=== PATIENT | female | born 1945 | race Caucasian/White ===

== ENCOUNTER → 2016-11-13 | Outpatient (CLI) | payer OTHER ==
[~2016-11-13] MED LIST: AMX875 PO; ASCO500T16 PO; CALCTAB5 PO; CELE1CAP30 PO; CETI10TA84 PO; CHOL100010 PO; DIAZ-165 PO; DIPH25CA65 PO; GARL705C PO; HYDR25TA4 PO; IBUP-1277 PO; LXP/10 PO; OMEP40CA PO; OXYC-57 PO; PRLSR20 PO; RALO60TA30 PO; VERA360C2 PO; VITA1CRE PO
--- NOTE | 2016-11-13 16:40 | MAMMOGRAPHY REPORT ---
BILATERAL DIGITAL SCREENING MAMMOGRAM WITH CAD: 11/13/2016 CLINICAL HISTORY: Routine screening. Patient has no complaints. TECHNIQUE: Bilateral CC and MLO views were obtained. Current study was also evaluated with a Comput er Aided Detection (CAD) system. COMPARISON: Comparison is made to exams dated: 05/20/2014 mammogram, 12/01/2012 mammogram, 03/19/2011 m ammogram, 01/31/2010 mammogram - [facility], 06/10/2008, and 05/13/2006 mammogram - [facility]. BREAST COMPOSITION: There are scattered areas of fibroglandular density in both breasts. FINDINGS: There are a few scattered benign coarse calcifications in the breasts. No suspicious mass , architectural distortion or cluster of suspicious microcalcifications is seen. IMPRESSION: ACR BI-RADS CATEGORY 2: BENIGN There is no mammographic evidence of malignancy. A 1 year screening mammogram is recommended. The p atient will receive written notification of the results. Approximately 10% of breast cancers are not detected with mammography. A negative mammographic repor t should not delay biopsy if a clinically suggestive mass is present. Rosemary Hutchinson M.D. ay/:11/13/2016 15:48:41 [employer] Supervisor: Maggie NORRIS(John)(Maria A), [facility] letter sent: Normal 1/2 BI-RADS Code: ACR BI-RADS Category 2: Benign
== END | disposition home or self-care (01) ==
LOC: C.MAMM 11:14
PROVIDERS: ATTEND Internal Medicine Geriatric Medicine
DX: Z12.31 Encounter for screening mammogram for malignant neoplasm of breast (principal)

== ENCOUNTER 2016-12-14 09:38 | Emergency (ER) | payer OTHER ==
[~2016-12-14] VITALS: Ht 157.5 cm; Wt 74.3 kg
[~2016-12-14 09:38] MED LIST changes: -CELE1CAP30 PO; -DIAZ-165 PO; -OXYC-57 PO; -PRLSR20 PO; -VITA1CRE PO
[2016-12-14 09:42] VITALS: TEMP 36.8; Ht 157.5 cm; Wt 74.3 kg
[2016-12-14] MEDS ORDERED: DIAZEPAM 5MG TAB PO STA (10:08)
--- NOTE | 2016-12-14 10:08 | EMERGENCY ROOM VISIT NOTE ---
History Report prepared by Evanibjami: Axel Paul Under the Supervision of: Carmine MontanoO. First contact with patient: 09:57 Chief Complaint: FALL Stated Complaint: FELL X 1 WK, LEFT SIDE UNDER BREAST DISCOMFORT History of Present Illness The patient is a 71 year old female who presents to the Emergency Room with complaints of persistent pain in the left rib area for one week. The patient was working in her yard when she tripped and landed flat on the ground. She has not noticed any rashes or bruising over the painful area. Her pain feels similar to when she broke ribs on the right side in the past, which was diagnosed by X-ray. The pain is worse when she takes a deep breath, coughs, sneezes, or otherwise moves the ribs. She has been taking leftover Percocet for pain. She also has some chronic lower back pain that she states is unrelated to the rib pain. She did not hit her head or lose consciousness during the fall. She denies any recent illness or cough, injury to the extremities, abdominal pain, changes in her bowel or urinary habits, numbness, or weakness. The patient is not on any blood thinners. She has history of asthma / allergies and has an inhaler. She has had pneumonia and bronchitis in the past. Patient has not noticed any other new or evolving symptoms over the course of the week. States pain is only localized to her left ribs. Source of History: patient Onset: one week ago Position: other (left rib area) Timing: other (persistent) Modifying Factors (Worsening): breathing, movement Modifying Factors (Relieving): narcotics (Percocet) Associated Symptoms: + back pain, No LOC, No abdominal pain, No cough, No diarrhea, No headache, No numbness, No rash, No urinary symptoms, No weakness Review of Systems See HPI for pertinent positives & negatives. A total of 10 systems reviewed and were otherwise negative. Past Medical & Surgical Medical Problems: (1) Hammer toes, bilateral Surgical Problems: (1) Hx of cholecystectomy Family History Omitted secondary to age Social History Smoking Status: Never Smoker Alcohol Use: none Drug Use: none Current/Historical Medications Scheduled Ascorbic Acid (Ascorbic Acid), 500 MG PO DAILY Celecoxib (Celecoxib), 1 CAP PO BID Cetirizine (Zyrtec), 10 MG PO DAILY Cholecalciferol (Vitamin D), 1 TAB PO DAILY Escitalopram Oxalate (Lexapro), 10 MG PO DAILY Hydrochlorothiazide (Hctz), 25 MG PO DAILY Omeprazole (Prilosec), 40 MG PO DAILY Raloxifene Hcl (Evista), 60 MG PO DAILY Verapamil Hcl (Verapamil Hcl Sr), 360 MG PO DAILY Vitamin E (Topical) (Vitamin E), 2 TAB PO DAILY Scheduled PRN Diazepam (Valium), 2.5 MG PO Q8 PRN for Muscle Spasms Diphenhydramine Hcl (Benadryl Allergy), 25 CAP PO Q4 PRN for ALLERGIC REACTION Ibuprofen (Advil), 200-400 MG PO Q4H PRN for Pain or Fever Oxycodone/Acetaminophen 5MG/325MG (Percocet 5MG/325MG), Unknown Dose PO Q4H PRN for Pain Oxycodone/Acetaminophen 5MG/325MG (Percocet 5MG/325MG), 1 TAB PO Q8 PRN for Pain Allergies Coded Allergies: Amoxicillin (Unverified Allergy, Mild, Hives, 12/14/16) Penicillins (Unverified Allergy, Mild, Hives, 12/14/16) Physical Exam Vital Signs Date Time Temp Pulse Resp B/P Pulse Ox O2 Delivery O2 Flow Rate FiO2 12/14/16 11:45 54 16 146/71 95 12/14/16 09:42 36.8 60 18 147/70 96 Room Air Physical Exam GENERAL: alert, well appearing, well nourished, no distress, non-toxic EYE EXAM: normal conjunctiva, PERRL and EOM's grossly intact OROPHARYNX: no exudate, no erythema, lips, buccal mucosa, and tongue normal and mucous membranes are moist NECK: supple, no nuchal rigidity, no adenopathy, non-tender LUNGS: Clear to auscultation. Normal chest wall mechanics HEART: no murmurs, S1 normal and S2 normal CHEST: Left anterolateral pain with palpation, no crepitus, no stepoff, no ecchymosis or rash. ABDOMEN: abdomen soft, non-tender, normo-active bowel sounds, no masses, no rebound or guarding. BACK: Back is symmetrical on inspection and there is no deformity, no midline tenderness, no CVA tenderness. SKIN: no rashes and no bruising UPPER EXTREMITIES: upper extremities are grossly normal. LOWER EXTREMITIES: No pitting edema. NEURO EXAM: Normal sensorium, cranial nerves II-XII grossly intact, normal speech, no gross weakness of arms, no gross weakness of legs. Gross sensation intact. Medical Decision & Procedures ER Provider Diagnostic Interpretation: Xray results per the radiologist and my interpretation. LEFT RIBS UNILATERAL WITH PA CHEST CLINICAL HISTORY: Left rib pain following fall. COMPARISON STUDY: Chest radiograph September 19, 2015. FINDINGS: There is no pneumothorax or pleural effusion. Mild cardiomegaly is noted. There is no evidence of pulmonary edema. There is a possible acute nondisplaced anterior left 10th rib fracture. IMPRESSION: No pneumothorax. Possible acute nondisplaced anterior left 10th rib fracture. Electronically signed by: Shalom Bruce M.D. 12/14/2016 11:10 AM Dictated Date/Time: 12/14/2016 11:05 AM Medications Administered Medications (Trade) Dose Ordered Sig/Elda Route Start Time Stop Time Status Last Admin Dose Admin Diazepam (Valium Tab) 2.5 mg NOW STAT PO 12/14/16 10:08 12/14/16 10:11 DC 12/14/16 10:37 2.5 MG ECG Indication: chest pain Rate (beats per minute): 58 Rhythm: sinus bradycardia Findings: PAC (occasional), no acute ischemic change, other (normal axis normal intervals) ED Course 0958: The patient was evaluated in room B6. A complete history and physical exam was performed. 1008: Valium 2.5 mg PO. 1125: Reassessed the patient. She looks and feel good. Updated the patient and her family at bedside. Medical Decision Differential diagnosis includes rib fracture, pneumothorax, pulmonary contusion , muscle strain, shingles. Patient well-appearing 1 week out from original injury. Patient with localized pain and no other symptoms or findings on exam. Chest x-ray shows likely rib fracture. Pain well controlled, vital signs stable. Patient not anticoagulated. Did not feel patient required additional imaging at this time given stability one week post fall and chest x-ray confirming suspected diagnosis. Discussed all medications with patient and family at bedside, they verbalized understanding were agreeable with plan. Discussed symptoms to watch and return for, and close follow-up with family doctor as a precaution. Impression Primary Impression: Fall Additional Impression: Left rib fracture Scribe Attestation The scribe's documentation has been prepared under my direction and personally reviewed by me in its entirety. I confirm that the note above accurately reflects all work, treatment, procedures, and medical decision making performed by me. Departure Information Dispostion Home / Self-Care Prescriptions Diazepam (Valium) 5 Mg Tab 2.5 MG PO Q8 Y for Muscle Spasms, #10 TAB Prov: Eve Reyes, DO 12/14/16 Oxycodone/Acetaminophen 5MG/325MG (PERCOCET 5MG/325MG) Tab 1 TAB PO Q8 Y for Pain, #15 TAB Prov: Eve Reyes, DO 12/14/16 Referrals Esau Ryan M.D. (PCP) Forms HOME CARE DOCUMENTATION FORM, IMPORTANT VISIT INFORMATION Patient Instructions My [facility] Additional Instructions Please continue your regular medications. You may use the pain medication and muscle relaxer as prescribed. Please do not use them and drive. You may use tylenol during the day, but do not exceed a total of 4 grams of tylenol total between the regular tylenol and percocet which has tylenol in it. Please eat and drink normally, and monitor for constipation which is a frequent side effect of the percocet. If you have any worsening pain, develop fevers, a cough , abdominal pain, back pain, nausea/vomiting, or you have any other new or concerning symptoms, please return to the emergency room. Problem Qualifiers Primary Impression: Fall Encounter type: initial encounter Qualified Codes: W19.XXXA - Unspecified fall, initial encounter Additional Impression: Left rib fracture Encounter type: initial encounter Rib fracture type: single rib Fracture type: closed Qualified Codes: S22.32XA - Fracture of one rib, left side, initial encounter for closed fracture
[2016-12-14] MEDS ORDERED: PRLSR20 PO (10:22)
[2016-12-14] MEDS ORDERED: VITA1CRE PO (10:22)
[2016-12-14] MEDS ORDERED: CELE1CAP30 PO (10:22)
[2016-12-14] MEDS ORDERED: CHOL100010 PO (10:22)
[2016-12-14] MEDS ORDERED: OXYC-57 PO ×2 (10:23→11:50)
--- NOTE | 2016-12-14 11:11 | DIAGNOSTIC IMAGING REPORT ---
LEFT RIBS UNILATERAL WITH PA CHEST CLINICAL HISTORY: Left rib pain following fall. COMPARISON STUDY: Chest radiograph September 19, 2015. FINDINGS: There is no pneumothorax or pleural effusion. Mild cardiomegaly is noted. There is no evidence of pulmonary edema. There is a possible acute nondisplaced anterior left 10th rib fracture. IMPRESSION: No pneumothorax. Possible acute nondisplaced anterior left 10th rib fracture. Electronically signed by: Shalom Bruce M.D. 12/14/2016 11:10 AM Dictated Date/Time: 12/14/2016 11:05 AM
[2016-12-14 11:45] VITALS: BP 146/71; PULSE 54; O2SAT 95
[2016-12-14] MEDS ORDERED: DIAZ-165 PO (11:50)
== END 2016-12-14 12:19 | disposition home or self-care (01) ==
LOC: C.EDB 09:39
DX: S22.32XA Fracture of one rib, left side, initial encounter for closed fracture (principal); W01.0XXA Fall on same level from slipping, tripping and stumbling without subsequent striking against object, initial encounter; G89.29 Other chronic pain; J45.909 Unspecified asthma, uncomplicated; Z90.49 Acquired absence of other specified parts of digestive tract; Z79.899 Other long term (current) drug therapy; Z88.0 Allergy status to penicillin; Z88.1 Allergy status to other antibiotic agents

== ENCOUNTER → 2017-05-24 | Outpatient (CLI) | payer OTHER ==
[~2017-05-24] MED LIST changes: -AMX875 PO; -CALCTAB5 PO; +CELE1CAP30 PO; +DIAZ-165 PO; -GARL705C PO; -OMEP40CA PO; +OXYC-57 PO; +PRLSR20 PO; +RALO60TA12 PO; -RALO60TA30 PO; +VITA1CRE PO
[2017-05-24 12:33] LABS: BASO % 0.7 %; BASO ABS # 0.04 K/uL (0-0.2); COMPLETE YES; EOS % 2.2 %; IG% 0.2 %; LYMPH % 25.9 %; LYMPH ABS # 1.51 K/uL (1.2-3.4); MEAN CELL VOLUME 91.3 fL (80-100); MEAN CORPUSCULAR HEMOGLOBIN 31.1 pg (25-34); MONO % 6.4 %; NEUT % 64.6 %; PLATELET COUNT 263 K/uL (130-400); RED BLOOD COUNT 4.38 M/uL (4.2-5.4); WHITE BLOOD COUNT 5.82 K/uL (4.8-10.8)
[2017-05-24 13:01] LABS: ALT/SGPT 20 U/L (12-78); AST/SGOT 19 U/L (15-37); BLOOD UREA NITROGEN 16 mg/dl (7-18); BUN/CREATININE RATIO 21.3 (10-20); CARBON DIOXIDE 27 mmol/L (21-32); CHLORIDE 107 mmol/L (98-107); CREATININE 0.77 mg/dl (0.60-1.20); GLUCOSE 91 mg/dl (70-99); POTASSIUM 3.4 mmol/L (3.5-5.1); SODIUM 142 mmol/L (136-145)
[2017-05-24 13:03] LABS: ALKALINE PHOSPHATASE 58 U/L (45-117); CHOLESTEROL 180 mg/dl (0-200); CHOLESTEROL/HDL RATIO 3.7; HDL CHOLESTEROL 49 mg/dl; LDL CHOLESTEROL CALCULATED 96 mg/dl; TRIGLYCERIDES 176 mg/dl (0-150); VERY LOW DENSITY LIPOPROT CALC 35 mg/dl
== END | disposition home or self-care (01) ==
LOC: C.LABBFT 10:12
PROVIDERS: ATTEND Internal Medicine
DX: Z00.00 Encounter for general adult medical examination without abnormal findings (principal); M81.0 Age-related osteoporosis without current pathological fracture; E78.5 Hyperlipidemia, unspecified; I10 Essential (primary) hypertension; E55.9 Vitamin D deficiency, unspecified; K58.9 Irritable bowel syndrome, unspecified

== ENCOUNTER → 2017-11-20 | Outpatient (CLI) | payer OTHER ==
[~2017-11-20] MED LIST changes: -DIAZ-165 PO; -RALO60TA12 PO; +RALO60TA30 PO
[2017-11-20 13:05] LABS: ALBUMIN 3.2 gm/dl (3.4-5.0); ALT/SGPT 23 U/L (12-78); AST/SGOT 22 U/L (15-37); BLOOD UREA NITROGEN 15 mg/dl (7-18); CALCIUM 9.4 mg/dl (8.5-10.1); CARBON DIOXIDE 28 mmol/L (21-32); CREATININE 0.85 mg/dl (0.60-1.20); GLUCOSE 86 mg/dl (70-99); POTASSIUM 3.6 mmol/L (3.5-5.1); SODIUM 139 mmol/L (136-145)
[2017-11-20 13:08] LABS: ALKALINE PHOSPHATASE 58 U/L (45-117); TOTAL PROTEIN 7.1 gm/dl (6.4-8.2)
== END | disposition home or self-care (01) ==
LOC: C.LABBFT 09:51
PROVIDERS: ATTEND Internal Medicine
DX: Z00.00 Encounter for general adult medical examination without abnormal findings (principal); I10 Essential (primary) hypertension; E78.5 Hyperlipidemia, unspecified; E55.9 Vitamin D deficiency, unspecified

== ENCOUNTER 2022-08-25 18:01 | Inpatient (IN) ==
[2022-08-25 19:52] LABS: Basophils # (auto) 0.03 K/uL (0-0.2); Basophils % (auto) 0.5 %; Eosinophils # (auto) 0.04 K/uL (0-0.50); Eosinophils % (auto) 0.6 %; Hematocrit (blood only) 39.4 % (34.1-44.9); Hemoglobin 13.5 g/dl (12.0-16.0); Immature Granulocytes # (auto) 0.02 K/uL (0.00-0.02); Immature Granulocytes % (auto) 0.3 %; Lymphocytes # (auto) 1.16 K/uL (1.2-3.4); Lymphocytes % (auto) 17.6 %; Mean Corpuscular Hgb Conc 34.3 g/dL (32.0-36.0); Mean Corpuscular Volume 90.6 fL (80.0-100.0); Mean Platelet Volume 10.2 fL (9.4-12.3); Monocytes # (auto) 0.61 K/uL (0.24-0.82); Monocytes % (auto) 9.3 %; Neutrophils # (auto) 4.72 K/uL (1.4-6.5); Neutrophils % (auto) 71.7 %; Platelet Count 253 K/uL (130-400); RDW Coefficient of Variation 13.4 % (11.5-14.5); RDW Standard Deviation 45.6 fL (36.4-46.3); Red Blood Count 4.35 M/uL (3.93-5.22); White Blood Count 6.58 K/ul (4.8-10.8)
[2022-08-25 20:08] LABS: Albumin Level 3.6 gm/dl (3.4-5.0); BUN Creatinine Ratio 17.3 (10-20); Bilirubin Direct 0.1 mg/dl (0-0.2); Bilirubin,Total 0.9 mg/dl (0.2-1.0); Calcium 9.4 mg/dl (8.5-10.1); Creatinine Clr Calc Pharmacy 51.7 ml/min; Est GFR (African American) 80.1 ml/min; Est GFR (Non-African American) 69.1 ml/min; Potassium 2.7 mmol/L (3.5-5.1); Total Protein 6.7 gm/dl (6.0-8.3)
--- NOTE | 2022-08-25 20:41 | Emergency Department Note ---
History of Present Illness General Chief complaint: Back Injury/Pain Time Seen by Provider: 08/25/22 19:06 History of Present Illness Provider complaint: Left-sided flank pain Onset (ago): day(s) 1 Maximum Pain Intensity: 10 77-year-old female presents emergency department for left-sided flank pain. Patient is here with her family. They report that the patient has been having increasing memory issues however the patient has been reporting left-sided flank pain. No recent falls or traumas. No hematuria or dysuria. No fevers or vomi ting. No reported urinary or fecal incontinence. Home Medications Medication Instructions Recorded Confirmed Type cholecalciferol (vitamin D3) 25 2,000 unit PO QAM 11/03/20 08/25/22 History mcg (1,000 unit) chewable tablet (Vitamin D3) levothyroxine 25 mcg tablet 25 mcg PO DAILYBB 08/25/22 08/25/22 History raloxifene 60 mg tablet 60 mg PO QPM 08/25/22 08/25/22 History verapamil 180 mg 24 hr 360 mg PO DAILY 08/25/22 08/25/22 History capsule,extended release Allergies Allergy/AdvReac Type Severity Reaction Status Date / Time amoxicillin Allergy Mild Hives Verified 08/25/22 20:54 Penicillins Allergy Mild Hives Verified 08/25/22 20:54 KATIANA Inhibitors Allergy Verified 08/25/22 20:54 mometasone furoate Allergy Verified 08/25/22 20:54 [From Nasonex] paroxetine [From Paxil] Allergy Verified 08/25/22 20:54 Past Med/Surg History Medical History Bilateral neural hearing loss Chronic rhinitis Depression with anxiety Dyslipidemia Family history of breast cancer in first degree relative three sisters with breast cancer GERD (gastroesophageal reflux disease) Hypertension Hypothyroidism Mild cognitive impairment Osteoporosis Sleep apnea Vitamin D deficiency Surgical History Hx of cholecystectomy Hx of foot surgery S/P colonoscopy S/P tubal ligation Family History Father Alzheimer disease Sister Breast cancer Dementia Other Cancer Hypertension No family history of adverse response to anesthesia No family history of bleeding disorder Denies family history of Rheumatoid arthritis Sudden SIDS (sudden infant syndrome) Ovarian cancer Prostate cancer Diabetes Deep vein thrombosis Osteoporosis Coronary heart disease Dyslipidemia Cerebral aneurysm Bipolar disorder Clotting disorder Crohn's disease Depression Heart disease Kidney disease Myocardial infarction Osteoarthritis Schizophrenia Congenital kidney disease Gestational diabetes Lung cancer COPD (chronic obstructive pulmonary disease) Colorectal cancer Pulmonary embolism Lung disease Ulcerative colitis Colonic polyp Stroke Asthma Cystic kidney disease Social History Smoking Status: Never smoker Second Hand Exposure: No; Hx Alcohol Use: No Hx Substance Use: No Preferred Language: Nepali Communication Ability: Effective Visual Impairment: No Limitations Hearing Ability: Hard of Hearing Beliefs That Will Affect Care: None marital status: Current Living Situation: Spouse current occupational status: retired How many Children do You have: 3 Feels Safe at Home: Yes Childhood Exposure to Second-Hand Smoke: No caffeine: No during the past year weight has: remained stable Dental Care, Regularly: Yes Physical Activity Frequency: Daily Seatbelt Use: always Sunscreen Use: No Physical Exam Vital Signs Vital Signs - 24 hr 08/25/22 18:04 08/25/22 18:04 08/25/22 19:41 Temperature 37.0 C Temperature Source Oral Pulse Rate 64 59 L Pulse Rate [Apical] 67 Pulse Rate from SpO2 Sensor Pulse Rhythm Regular Regular Pulse Rhythm [Apical] Regular Pulse Strength Normal Pulse Strength [Apical] Normal Respiratory Rate 19 18 20 Respiratory Effort / Characteristics Non-Labored Spontaneous Non-Labored Spontaneous Respiratory Depth Normal Normal Respiratory Pattern Regular Regular Blood Pressure 165/78 H Blood Pressure [Right Arm] 165/78 H Blood Pressure Mean 107 Blood Pressure Mean [Right Arm] 107 Pulse Oximetry 95 95 95 Oxygen Delivery Method Room Air Room Air Room Air Sepsis Recent Fever Within 48 Hours No Sepsis New/Unexplained Change in Mental Status No Sepsis Action Taken by Nursing No Action Required 08/25/22 18:24 08/25/22 18:30 08/25/22 18:40 Temperature Temperature Source Pulse Rate 68 66 65 Pulse Rate [Apical] Pulse Rate from SpO2 Sensor 65 66 66 Pulse Rhythm Pulse Rhythm [Apical] Pulse Strength Pulse Strength [Apical] Respiratory Rate 24 24 24 Respiratory Effort / Characteristics Respiratory Depth Respiratory Pattern Blood Pressure Blood Pressure [Right Arm] Blood Pressure Mean Blood Pressure Mean [Right Arm] Pulse Oximetry 95 95 95 Oxygen Delivery Method Sepsis Recent Fever Within 48 Hours Sepsis New/Unexplained Change in Mental Status Sepsis Action Taken by Nursing 08/25/22 18:50 08/25/22 19:00 08/25/22 19:10 Temperature Temperature Source Pulse Rate 71 70 73 Pulse Rate [Apical] Pulse Rate from SpO2 Sensor 70 73 72 Pulse Rhythm Pulse Rhythm [Apical] Pulse Strength Pulse Strength [Apical] Respiratory Rate 20 24 20 Respiratory Effort / Characteristics Respiratory Depth Respiratory Pattern Blood Pressure Blood Pressure [Right Arm] Blood Pressure Mean Blood Pressure Mean [Right Arm] Pulse Oximetry 96 91 96 Oxygen Delivery Method Sepsis Recent Fever Within 48 Hours Sepsis New/Unexplained Change in Mental Status Sepsis Action Taken by Nursing 08/25/22 19:20 08/25/22 19:30 08/25/22 19:40 Temperature Temperature Source Pulse Rate 67 64 61 Pulse Rate [Apical] Pulse Rate from SpO2 Sensor 66 68 61 Pulse Rhythm Pulse Rhythm [Apical] Pulse Strength Pulse Strength [Apical] Respiratory Rate 21 22 24 Respiratory Effort / Characteristics Respiratory Depth Respiratory Pattern Blood Pressure Blood Pressure [Right Arm] Blood Pressure Mean Blood Pressure Mean [Right Arm] Pulse Oximetry 96 95 95 Oxygen Delivery Method Sepsis Recent Fever Within 48 Hours Sepsis New/Unexplained Change in Mental Status Sepsis Action Taken by Nursing 08/25/22 20:10 08/25/22 20:10 08/25/22 20:20 Temperature Temperature Source Pulse Rate Pulse Rate [Apical] Pulse Rate from SpO2 Sensor 70 64 Pulse Rhythm Pulse Rhythm [Apical] Pulse Strength Pulse Strength [Apical] Respiratory Rate 21 Respiratory Effort / Characteristics Respiratory Depth Respiratory Pattern Blood Pressure 178/74 H Blood Pressure [Right Arm] Blood Pressure Mean 108 Blood Pressure Mean [Right Arm] Pulse Oximetry 94 94 Oxygen Delivery Method Sepsis Recent Fever Within 48 Hours Sepsis New/Unexplained Change in Mental Status Sepsis Action Taken by Nursing 08/25/22 20:30 08/25/22 20:40 08/25/22 20:50 Temperature Temperature Source Pulse Rate 88 Pulse Rate [Apical] Pulse Rate from SpO2 Sensor 62 69 82 Pulse Rhythm Pulse Rhythm [Apical] Pulse Strength Pulse Strength [Apical] Respiratory Rate 19 19 Respiratory Effort / Characteristics Respiratory Depth Respiratory Pattern Blood Pressure Blood Pressure [Right Arm] Blood Pressure Mean Blood Pressure Mean [Right Arm] Pulse Oximetry 94 95 97 Oxygen Delivery Method Sepsis Recent Fever Within 48 Hours Sepsis New/Unexplained Change in Mental Status Sepsis Action Taken by Nursing 08/25/22 20:51 08/25/22 20:51 08/25/22 21:00 Temperature Temperature Source Pulse Rate 69 Pulse Rate [Apical] Pulse Rate from SpO2 Sensor 70 Pulse Rhythm Pulse Rhythm [Apical] Pulse Strength Pulse Strength [Apical] Respiratory Rate 22 Respiratory Effort / Characteristics Respiratory Depth Respiratory Pattern Blood Pressure 184/74 H 136/104 H Blood Pressure [Right Arm] Blood Pressure Mean 110 114 Blood Pressure Mean [Right Arm] Pulse Oximetry 96 Oxygen Delivery Method Sepsis Recent Fever Within 48 Hours Sepsis New/Unexplained Change in Mental Status Sepsis Action Taken by Nursing 08/25/22 21:00 08/25/22 21:10 08/25/22 21:20 Temperature Temperature Source Pulse Rate 73 61 60 Pulse Rate [Apical] Pulse Rate from SpO2 Sensor 77 57 L 62 Pulse Rhythm Pulse Rhythm [Apical] Pulse Strength Pulse Strength [Apical] Respiratory Rate 22 20 20 Respiratory Effort / Characteristics Respiratory Depth Respiratory Pattern Blood Pressure Blood Pressure [Right Arm] Blood Pressure Mean Blood Pressure Mean [Right Arm] Pulse Oximetry 93 92 92 Oxygen Delivery Method Sepsis Recent Fever Within 48 Hours Sepsis New/Unexplained Change in Mental Status Sepsis Action Taken by Nursing 08/25/22 21:30 08/25/22 21:40 08/25/22 21:50 Temperature Temperature Source Pulse Rate 61 60 59 L Pulse Rate [Apical] Pulse Rate from SpO2 Sensor 61 61 61 Pulse Rhythm Pulse Rhythm [Apical] Pulse Strength Pulse Strength [Apical] Respiratory Rate 23 19 20 Respiratory Effort / Characteristics Respiratory Depth Respiratory Pattern Blood Pressure Blood Pressure [Right Arm] Blood Pressure Mean Blood Pressure Mean [Right Arm] Pulse Oximetry 93 91 92 Oxygen Delivery Method Sepsis Recent Fever Within 48 Hours Sepsis New/Unexplained Change in Mental Status Sepsis Action Taken by Nursing 08/25/22 22:00 08/25/22 22:00 08/25/22 22:10 Temperature Temperature Source Pulse Rate 65 60 Pulse Rate [Apical] Pulse Rate from SpO2 Sensor 65 61 Pulse Rhythm Pulse Rhythm [Apical] Pulse Strength Pulse Strength [Apical] Respiratory Rate 23 24 Respiratory Effort / Characteristics Respiratory Depth Respiratory Pattern Blood Pressure 139/73 Blood Pressure [Right Arm] Blood Pressure Mean 95 Blood Pressure Mean [Right Arm] Pulse Oximetry 93 93 Oxygen Delivery Method Sepsis Recent Fever Within 48 Hours Sepsis New/Unexplained Change in Mental Status Sepsis Action Taken by Nursing 08/25/22 22:20 08/25/22 22:30 08/25/22 22:40 Temperature Temperature Source Pulse Rate 62 67 67 Pulse Rate [Apical] Pulse Rate from SpO2 Sensor 61 65 Pulse Rhythm Pulse Rhythm [Apical] Pulse Strength Pulse Strength [Apical] Respiratory Rate 20 23 Respiratory Effort / Characteristics Respiratory Depth Respiratory Pattern Blood Pressure Blood Pressure [Right Arm] Blood Pressure Mean Blood Pressure Mean [Right Arm] Pulse Oximetry 94 95 Oxygen Delivery Method Sepsis Recent Fever Within 48 Hours Sepsis New/Unexplained Change in Mental Status Sepsis Action Taken by Nursing 08/25/22 22:50 08/25/22 22:58 08/25/22 22:58 Temperature Temperature Source Pulse Rate 64 61 Pulse Rate [Apical] Pulse Rate from SpO2 Sensor 64 Pulse Rhythm Pulse Rhythm [Apical] Pulse Strength Pulse Strength [Apical] Respiratory Rate 21 Respiratory Effort / Characteristics Respiratory Depth Respiratory Pattern Blood Pressure 134/90 Blood Pressure [Right Arm] Blood Pressure Mean 104 Blood Pressure Mean [Right Arm] Pulse Oximetry 94 Oxygen Delivery Method Sepsis Recent Fever Within 48 Hours Sepsis New/Unexplained Change in Mental Status Sepsis Action Taken by Nursing 08/25/22 23:00 08/25/22 23:00 08/25/22 23:10 Temperature Temperature Source Pulse Rate 66 75 Pulse Rate [Apical] Pulse Rate from SpO2 Sensor Pulse Rhythm Pulse Rhythm [Apical] Pulse Strength Pulse Strength [Apical] Respiratory Rate 22 24 Respiratory Effort / Characteristics Respiratory Depth Respiratory Pattern Blood Pressure 168/64 H Blood Pressure [Right Arm] Blood Pressure Mean 98 Blood Pressure Mean [Right Arm] Pulse Oximetry Oxygen Delivery Method Sepsis Recent Fever Within 48 Hours Sepsis New/Unexplained Change in Mental Status Sepsis Action Taken by Nursing 08/25/22 23:20 08/25/22 23:30 08/25/22 23:40 Temperature Temperature Source Pulse Rate 64 62 60 Pulse Rate [Apical] Pulse Rate from SpO2 Sensor Pulse Rhythm Pulse Rhythm [Apical] Pulse Strength Pulse Strength [Apical] Respiratory Rate 20 24 24 Respiratory Effort / Characteristics Respiratory Depth Respiratory Pattern Blood Pressure Blood Pressure [Right Arm] Blood Pressure Mean Blood Pressure Mean [Right Arm] Pulse Oximetry Oxygen Delivery Method Sepsis Recent Fever Within 48 Hours Sepsis New/Unexplained Change in Mental Status Sepsis Action Taken by Nursing 08/25/22 23:50 08/26/22 00:00 Temperature Temperature Source Pulse Rate 59 L 59 L Pulse Rate [Apical] Pulse Rate from SpO2 Sensor Pulse Rhythm Pulse Rhythm [Apical] Pulse Strength Pulse Strength [Apical] Respiratory Rate 20 22 Respiratory Effort / Characteristics Respiratory Depth Respiratory Pattern Blood Pressure Blood Pressure [Right Arm] Blood Pressure Mean Blood Pressure Mean [Right Arm] Pulse Oximetry Oxygen Delivery Method Sepsis Recent Fever Within 48 Hours Sepsis New/Unexplained Change in Mental Status Sepsis Action Taken by Nursing Physical Exam HENT: Exam performed. -Head: Normocephalic and atraumatic. NECK: Normal range of motion. Neck supple. No JVD present. CV: Normal rate, regular rhythm, normal heart sounds and intact distal pulses. There is no peripheral edema. Palpable radial pulses bue. PULM/CHEST: Effort normal and breath sounds normal. No respiratory distress. No stridor. She has no wheezes. She has no rales. ABD: The abdomen is soft. No tenderness to palpation of the abdomen. MUSC/SKEL: No C, T, or L-spine tenderness. No CVA tenderness. NEURO: Motor and sensation grossly intact. Course Course 1905: The patient was evaluated in room C7. A complete history and physical exam was performed Cardiac monitoring: An order was placed for continuous cardiac monitoring. The monitor shows a rate of 60 with sinus rhythm 2200: Vital signs stable. Labs show potassium of 2.[address] of the and pelvis shows early diverticulitis. Discussed the results with patient and family. They state they feel the patient is too weak to be taken care of at home. Patient be admitted to the [facility] team. Patient treated with Cipro and Flagyl IV. Potassium Cater and KCl and 1 L normal saline given to the patient. Patient will be admitted to Dr. Zayas team. Administered Medications Potassium Chloride/Sodium Chloride (Normal Saline W/20 Meq Kcl) 20 meq in 1,000 mls @ 100 mls/hr IV .Q10H [facility]; Protocol Stop: 09/24/22 22:14 Last Admin: 08/25/22 23:40 Dose: 100 mls/hr Documented By: TORI Discontinued Medications Metronidazole (Flagyl) 500 mg in 100 mls @ 100 mls/hr IV NOW STA Stop: 08/25/22 22:58 Last Admin: 08/26/22 00:22 Dose: 100 mls/hr Documented By: TORI Ciprofloxacin (Cipro / D5w) 400 mg in 200 mls @ 100 mls/hr IV NOW STA; Protocol Stop: 08/26/22 00:04 Last Infusion: 08/26/22 00:04 Dose: 0 mls/hr Documented By: Admin: 08/25/22 22:19 Dose: 100 mls/hr Documented By: TORI Potassium Chloride (Potassium Chloride 10 Meq Tabcr) 40 meq PO NOW STA Stop: 08/25/22 22:05 Last Admin: 08/25/22 22:20 Dose: 40 meq Documented By: [facility] Medical Decision Making Laboratory Data Attestation: I reviewed the patient's lab results. 08/25/22 18:11 08/25/22 18:11 Lab Results 08/25/22 08/25/22 08/25/22 Range/Units 18:11 18:11 18:11 WBC 6.58 (4.8-10.8) K/ul RBC 4.35 (3.93-5.22) M/uL Hgb 13.5 (12.0-16.0) g/dl Hct 39.4 (34.1-44.9) % MCV 90.6 (80.0-100.0) fL MCH 31.0 (25.0-34.0) pg MCHC 34.3 (32.0-36.0) g/dL RDW Std Deviation 45.6 (36.4-46.3) fL RDW Coeff of Yoselin 13.4 (11.5-14.5) % Plt Count 253 (130-400) K/uL MPV 10.2 (9.4-12.3) fL Immature Gran % (Auto) 0.3 % Neut % (Auto) 71.7 % Lymph % (Auto) 17.6 % [place] % (Auto) 9.3 % Eos % (Auto) 0.6 % Baso % (Auto) 0.5 % Neut # (Auto) 4.72 (1.4-6.5) K/uL Lymph # (Auto) 1.16 L (1.2-3.4) K/uL [place] # (Auto) 0.61 (0.24-0.82) K/uL Eos # (Auto) 0.04 (0-0.50) K/uL Baso # (Auto) 0.03 (0-0.2) K/uL Immature Gran # (Auto) 0.02 (0.00-0.02) K/uL Sodium 140 (136-145) mmol/L Potassium 2.7 L (3.5-5.1) mmol/L Chloride 106 (98-107) mmol/L Carbon Dioxide 27 (21-32) mmol/L Anion Gap 7 (3-11) BUN 14 (6-23) mg/dl Creatinine 0.81 (0.6-1.2) mg/dl Est Cr Clr Drug Dosing 51.7 ml/min Est GFR ( Amer) 80.1 ml/min Est GFR (Non-Af Amer) 69.1 ml/min BUN/Creatinine Ratio 17.3 (10-20) Glucose 100 H (70-99(Fasting)) mg/dl Calcium 9.4 (8.5-10.1) mg/dl Magnesium 2.0 (1.7-2.4) mg/dl Total Bilirubin 0.9 (0.2-1.0) mg/dl Direct Bilirubin 0.1 (0-0.2) mg/dl AST 14 (13-39) U/L ALT 7 (7-52) U/L Alkaline Phosphatase 48 (34-104) U/L Total Protein 6.7 (6.0-8.3) gm/dl Albumin 3.6 (3.4-5.0) gm/dl Lipase 17 (11-82) U/L Urine Color Urine Appearance (Clear) Urine pH (4.5-7.5) Ur Specific [place] (1.000-1.030) Urine Protein (Negative) Urine Glucose (UA) (Negative) Urine Ketones (Negative) Urine Blood (Negative) Urine Nitrite (Negative) Urine Bilirubin (Negative) Urine Urobilinogen (Negative) Ur Leukocyte Esterase (Negative) Urine WBC (Auto) (0-5) /hpf Urine RBC (Auto) (0-4) /hpf U Hyaline Cast (Auto) (0-5) /lpf U Epithel Cells (Auto) (0-5) /lpf Urine Bacteria (Auto) (Negative) SARS-CoV-2, RNA, NAAT (NEGATIVE) 08/25/22 08/25/22 Range/Units 20:48 23:43 WBC (4.8-10.8) K/ul RBC (3.93-5.22) M/uL Hgb (12.0-16.0) g/dl Hct (34.1-44.9) % MCV (80.0-100.0) fL MCH (25.0-34.0) pg MCHC (32.0-36.0) g/dL RDW Std Deviation (36.4-46.3) fL RDW Coeff of Yoselin (11.5-14.5) % Plt Count (130-400) K/uL MPV (9.4-12.3) fL Immature Gran % (Auto) % Neut % (Auto) % Lymph % (Auto) % [place] % (Auto) % Eos % (Auto) % Baso % (Auto) % Neut # (Auto) (1.4-6.5) K/uL Lymph # (Auto) (1.2-3.4) K/uL [place] # (Auto) (0.24-0.82) K/uL Eos # (Auto) (0-0.50) K/uL Baso # (Auto) (0-0.2) K/uL Immature Gran # (Auto) (0.00-0.02) K/uL Sodium (136-145) mmol/L Potassium (3.5-5.1) mmol/L Chloride (98-107) mmol/L Carbon Dioxide (21-32) mmol/L Anion Gap (3-11) BUN (6-23) mg/dl Creatinine (0.6-1.2) mg/dl Est Cr Clr Drug Dosing ml/min Est GFR ( Amer) ml/min Est GFR (Non-Af Amer) ml/min BUN/Creatinine Ratio (10-20) Glucose (70-99(Fasting)) mg/dl Calcium (8.5-10.1) mg/dl Magnesium (1.7-2.4) mg/dl Total Bilirubin (0.2-1.0) mg/dl Direct Bilirubin (0-0.2) mg/dl AST (13-39) U/L ALT (7-52) U/L Alkaline Phosphatase (34-104) U/L Total Protein (6.0-8.3) gm/dl Albumin (3.4-5.0) gm/dl Lipase (11-82) U/L Urine Color [place] Urine Appearance Clear (Clear) Urine pH 5.5 (4.5-7.5) Ur Specific [place] 1.020 (1.000-1.030) Urine Protein Trace H (Negative) Urine Glucose (UA) Negative (Negative) Urine Ketones Trace H (Negative) Urine Blood 3+ H (Negative) Urine Nitrite Negative (Negative) Urine Bilirubin Negative (Negative) Urine Urobilinogen Negative (Negative) Ur Leukocyte Esterase Trace H (Negative) Urine WBC (Auto) 10-30 H (0-5) /hpf Urine RBC (Auto) >30 H (0-4) /hpf U Hyaline Cast (Auto) 1-5 (0-5) /lpf U Epithel Cells (Auto) >30 H (0-5) /lpf Urine Bacteria (Auto) Negative (Negative) SARS-CoV-2, RNA, NAAT NEGATIVE (NEGATIVE) Imaging Data Radiologist's Impression: Abdomen/Pelvis CT 08/25/22 19:39 CT abd pelvis wo con CLINICAL HISTORY: flank pain TECHNIQUE: Helical axial images of the abdomen and pelvis were obtained. Automated dose lowering techniques and/or adjustment according to patient size were utilized for this exam. This exam was performed without intravenous contrast. CT DOSE: 352.10 mGy.cm COMPARISON: None available at the time of this dictation. FINDINGS: Lower chest: Bilateral small pleural effusions are seen. Liver: Unremarkable. No focal lesions are seen. Gallbladder and biliary tree: Patient is status post cholecystectomy. Physiologic prominence of the biliary ducts is noted. Pancreas: Unremarkable, no focal lesions. Spleen: Unremarkable. Adrenals: Unremarkable. Kidneys and ureters: Multiple cysts are seen in the bilateral kidneys. Bladder: Unremarkable. Reproductive organs: Unremarkable. Bowel: Numerous diverticula are seen and there is minimal increased stranding in the mid sigmoid colon. The appendix is normal. There is a small hiatal hernia. Lymph nodes Retroperitoneal: Unremarkable. Pelvic: Subcentimeter lymph nodes are noted. Mesenteric: Unremarkable. Peritoneum: Minimal vascular prominence is seen in the sigmoid colon and there is trace pelvic free fluid. No pneumoperitoneum or drainable fluid collection is seen. Vessels: Atherosclerotic calcifications are seen. Abdominal wall: Unremarkable. Bones: Degenerative changes in the visualized spine. IMPRESSION: Minimal fat stranding about the diverticula in the sigmoid colon may represent very mild diverticulitis without abscess or perforation. ACT 112: Negative or not required by law. Electronically signed by: Gerber Gallego M.D. 08/25/2022 9:[address] 08/25/22 19:39 CT head/brain wo con CLINICAL HISTORY: ams Technique: Contiguous axial CT images of the head were acquired from the base of the skull to the vertex without intravenous contrast administration. Images were viewed in brain, subdural and bone windows. Automated dose lowering techniques and/or adjustment according to patient size were utilized for this exam. Comparison: Comparison is made to CT head 04/09/2019 Findings: Areas of decreased attenuation are present in the periventricular and subcortical white matter bilaterally consistent with small vessel ischemic disease. Generalized cerebral atrophy with commensurate enlargement of the ventricles, sulci, and cisterns is also present. There is no acute intracranial hemorrhage or evidence of acute territorial infarction. No shift of the midline structures, mass effect, or extra-axial abnormalities are shown. Atherosclerotic calcifications are present in the intracranial segments of the internal carotid arteries. Imaged portions of the paranasal sinuses and mastoid air cells are clear. The orbits appear normal. There are no acute fractures of the calvaria or scalp swelling. Impression: No acute intracranial hemorrhage, no evidence of acute territorial infarction or other acute intracranial disease process. ACT 112: Negative or not required by law. Electronically signed by: Gerber Gallego M.D. 08/25/2022 9:36 PM MDM Narrative Vital signs stable. Labs show potassium of 2.[address] of the and pelvis shows early diverticulitis. Discussed the results with patient and family. They state they feel the patient is too weak to be taken care of at home. Patient be admitted to the [facility] hospitalist team. Patient treated with Cipro and Flagyl IV. Potassium Cater and KCl and 1 L normal saline given to the patient. Patient will be admitted to Dr. Zayas team. Impression & Plan Hypokalemia, Acute diverticulitis Discharge Plan Visit Data Chief Complaint: Back Injury/Pain ED Provider: Kamron Freedman Discharge Problem: Hypokalemia, Acute diverticulitis Patient Disposition: Being Evaluated by Hospitalist Forms Stand Alone Forms: My [facility] Prescriptions Prescriptions: No Action cholecalciferol (vitamin D3) [Vitamin D3] 25 mcg (1,000 unit) tablet,chewable 2,000 unit PO QAM levothyroxine 25 mcg tablet 25 mcg PO DAILYBB verapamil 180 mg capsule,ext rel. pellets 24 hr 360 mg PO DAILY Rx Instructions: TWO CAPSULE DOSE DAILY raloxifene 60 mg tablet 60 mg PO QPM Referrals Referrals: Erin Bruce MD [Primary Care Provider] -
--- NOTE | 2022-08-25 21:38 | CT Scan Report ---
CT head/brain wo con CLINICAL HISTORY: ams Technique: Contiguous axial CT images of the head were acquired from the base of the skull to the nilo mya without intravenous contrast administration. Images were [facility] Automated dose lowering techniques and/or adjustment according to patient size were utilized for this exam. Comparison: Comparison is made to CT head 04/09/2019 Findings: Areas of decreased attenuation are present in the periventricular and subcortical white matter bilate rally consistent with small vessel ischemic disease. Generalized cerebral atrophy with commensurate e nlargement of the ventricles, sulci, and cisterns is also present. There is no acute intracranial hem orrhage or evidence of acute territorial infarction. No shift of the midline structures, mass effect, or extra-axial abnormalities are shown. Atherosclerotic calcifications are present in the intracran ial segments of the internal carotid arteries. Imaged portions of the paranasal sinuses and mastoid air cells are clear. The orbits appear normal. There are no acute fractures of the calvaria or scalp swelling. Impression: No acute intracranial hemorrhage, no evidence of acute territorial infarction or other acute intracra nial disease process. ACT 112: Negative or not required by law. Electronically signed by: Gerber Gallego M.D. 08/25/2022 9:36 PM
[2022-08-25 21:41] LABS: Appearance Urine Clear (Clear); Bacteria Urine Automated Negative (Negative); Bilirubin Urine Negative (Negative); Blood Urine 3+ (Negative); Color Urine Orange; Epithelial Cell Urine Auto >30 /lpf (0-5); Glucose Urine UA Negative (Negative); Ketones Urine Trace (Negative); Leukocyte Esterase Urine Trace (Negative); Nitrite Urine Negative (Negative); Protein Urine Trace (Negative); RBC Urine Automated >30 /hpf (0-4); Urobilinogen Urine Negative (Negative); pH Urine 5.5 (4.5-7.5)
--- NOTE | 2022-08-25 21:51 | CT Scan Report ---
CT abd pelvis wo con CLINICAL HISTORY: flank pain TECHNIQUE: Helical axial images of the abdomen and pelvis were obtained. Automated dose lowering tech niques and/or adjustment according to patient size were utilized for this exam. This exam was perfor med without intravenous contrast. CT DOSE: 352.10 mGy.cm COMPARISON: None available at the time of this dictation. FINDINGS: Lower chest: Bilateral small pleural effusions are seen. Liver: Unremarkable. No focal lesions are seen. Gallbladder and biliary tree: Patient is status post cholecystectomy. Physiologic prominence of the b iliary ducts is noted. Pancreas: Unremarkable, no focal lesions. Spleen: Unremarkable. Adrenals: Unremarkable. Kidneys and ureters: Multiple cysts are seen in the bilateral kidneys. Bladder: Unremarkable. Reproductive organs: Unremarkable. Bowel: Numerous diverticula are seen and there is minimal increased stranding in the mid sigmoid colo n. The appendix is normal. There is a small hiatal hernia. Lymph nodes Retroperitoneal: Unremarkable. Pelvic: Subcentimeter lymph nodes are noted. Mesenteric: Unremarkable. Peritoneum: Minimal vascular prominence is seen in the sigmoid colon and there is trace pelvic free f luid. No pneumoperitoneum or drainable fluid collection is seen. Vessels: Atherosclerotic calcifications are seen. Abdominal wall: Unremarkable. Bones: Degenerative changes in the visualized spine. IMPRESSION: Minimal fat stranding about the diverticula in the sigmoid colon may represent very mild diverticulit is without abscess or perforation. ACT 112: Negative or not required by law. Electronically signed by: Gerber Gallego M.D. 08/25/2022 9:50 PM
[2022-08-25] MEDS ORDERED: metroNIDAZOLE 500 MG/100 ML BAG IV STA (21:59)
[2022-08-25] MEDS ORDERED: POTASSIUM CHLORIDE 10 MEQ TABCR PO STA (22:04)
[2022-08-25] MEDS ORDERED: CIPROFLOXACIN / D5W 400 MG/200 ML BAG IV STA (22:05)
--- NOTE | 2022-08-25 22:14 | History & Physical Report ---
Date of Service August 25, 2022 Assessment & Plan (1) Acute diverticulitis: Plan: 77yo female with history presenting with acute uncomplicated diverticulitis. Patient has had left sided abdominal cramping persistent since 08/24/22 afternoon. She is afebrile, hemodynamically stable and non-toxic in appearance. Her pain is well controlled. Labs are largely unremarkable with exception of hypokalemia. Family is concerned about patient's generalized weakness. She lives at home with her and has been having difficulty with ambulation. -Observation to medical -Continue Ciprofloxacin 400mg IV BID -Continue Flagyl 500mg IV q 8 -IVF with LR at 80mL/hr x 1 L -Pain control with Tylenol and Oxy IR as needed -PT/OT evaluation for generalized weakness and ambulatory dysfunction (2) Hypokalemia: Plan: K=2.7. Son reports she had history of hypokalemia and was on supplemental K. Her labs normalized and her K was discontinued approximately 1 month ago. Now with K of 2.7. 40mEq ordered in the ER as well as 20mEq in IVF -Administer additional 20mEq -Repeat labs in AM (3) Hypothyroidism: Plan: Chronic -Continue Synthroid (4) Mild cognitive impairment: Plan: Patient oriented to self and hospital (with prompting). Functional and independent at home -Delirium prevention strategies with frequent orientation (5) Hypertension: Plan: Chronic. Blood pressure adequately controlled -Continue Verapamil 360mg po daily F/E/N - LR at 80mL/hr x 1L, K repletion as above, heart healthy diet as tolerated Ppx - low risk Code - Full per discussion with patient Dispo - Observation to medical POC - Arnulfo (son) [phone] History of Present Illness Chief Complaint: Abdominal cramping, back pain Primary Care Provider: Erin Bruce MD Paola Mina is a 77yo female with history of HTN, HLP, GERD and Hypothyroidism presenting with acute uncomplicated diverticulitis and generalized weakness. Patient began having some abdominal pain 08/24/22 on the left side of her abdomen as well as discomfort in her back. Her pain persisted. Her son visited her this morning around 0500 and patient was complaining of ongoing back pain, left sided abdominal cramping and shaking. She denies fever, chills, nausea or vomiting. No chest pain, shortness of breath or falls. Her son visited again around 15:30 and noted that she did not want to get up from the couch. She was able to ambulate but required assistance. Patient lives at home with her elderly . Their son lives next door and assists with their care. In the ER patient is afebrile, HD stable and non-toxic in appearance. ER Course: Ciprofloxacin 400mg IV Potassium Chloride 40mEq PO Flagyl 500mg IV ordered - not yet administered Allergies Allergy/AdvReac Type Severity Reaction Status Date / Time amoxicillin Allergy Mild Hives Verified 08/25/22 20:54 Penicillins Allergy Mild Hives Verified 08/25/22 20:54 KATIANA Inhibitors Allergy Verified 08/25/22 20:54 mometasone furoate Allergy Verified 08/25/22 20:54 [From Nasonex] paroxetine [From Paxil] Allergy Verified 08/25/22 20:54 Home Medications Medication Instructions Recorded Confirmed Type cholecalciferol (vitamin D3) 25 2,000 unit PO QAM 11/03/20 08/25/22 History mcg (1,000 unit) chewable tablet (Vitamin D3) levothyroxine 25 mcg tablet 25 mcg PO DAILYBB 08/25/22 08/25/22 History raloxifene 60 mg tablet 60 mg PO QPM 08/25/22 08/25/22 History verapamil 180 mg 24 hr 360 mg PO DAILY 08/25/22 08/25/22 History capsule,extended release Past Med/Surg History Medical History Bilateral neural hearing loss Chronic rhinitis Depression with anxiety Dyslipidemia Family history of breast cancer in first degree relative three sisters with breast cancer GERD (gastroesophageal reflux disease) Hypertension Hypothyroidism Mild cognitive impairment Osteoporosis Sleep apnea Vitamin D deficiency Surgical History Hx of cholecystectomy Hx of foot surgery S/P colonoscopy S/P tubal ligation Family History Father Alzheimer disease Sister Breast cancer Dementia Other Cancer Hypertension No family history of adverse response to anesthesia No family history of bleeding disorder Denies family history of Rheumatoid arthritis Sudden SIDS (sudden infant syndrome) Ovarian cancer Prostate cancer Diabetes Deep vein thrombosis Osteoporosis Coronary heart disease Dyslipidemia Cerebral aneurysm Bipolar disorder Clotting disorder Crohn's disease Depression Heart disease Kidney disease Myocardial infarction Osteoarthritis Schizophrenia Congenital kidney disease Gestational diabetes Lung cancer COPD (chronic obstructive pulmonary disease) Colorectal cancer Pulmonary embolism Lung disease Ulcerative colitis Colonic polyp Stroke Asthma Cystic kidney disease Social History Smoking Status: Never smoker Second Hand Exposure: No; Hx Alcohol Use: No Hx Substance Use: No Preferred Language: Polish Communication Ability: Effective Visual Impairment: No Limitations Hearing Ability: Hard of Hearing Beliefs That Will Affect Care: None marital status: Current Living Situation: Spouse current occupational status: retired How many Children do You have: 3 Feels Safe at Home: Yes Childhood Exposure to Second-Hand Smoke: No caffeine: No during the past year weight has: remained stable Dental Care, Regularly: Yes Physical Activity Frequency: Daily Seatbelt Use: always Sunscreen Use: No Review of Systems Review of Systems: All systems reviewed & are unremarkable except as noted in HPI & below Physical Exam Physical Exam: General: elderly female patient resting comfortably, NAD, non- toxic in appearance, AA&O to self and location, hard of hearing Skin: warm, dry, intact, no rashes or lesions HEENT: NC/AT, PERRL, EOMI, anicteric sclera, conjunctiva without injection, external ear normal to inspection and nontender, nares patent, moist mucus membranes, dentition intact, no oropharyngeal lesions, neck supple, trachea midline, no LAD, no thyromegaly, no JVD Heart: +S1/S2, regular, no m/r/g Lungs: equal air entry bilaterally, no rales/rhonchi/wheezes Abd: +BS, soft, NT/ND, no masses/organomegaly/ascites Ext: warm, 2+ pulses in UE/LE bilaterally, no clubbing/cyanosis or edema Neuro: nonfocal, patient AA&O x 2, speech intact, no facial droop, moving all extremities on command with equal strength 5/5 Results & Data Results & Data ([facility]) Vital Signs (Past 12 Hours) Vital Signs Temp Pulse Pulse Resp BP BP Pulse Ox 08/25/22 22:00 65 23 93 08/25/22 22:00 139/73 08/25/22 21:50 59 L 20 92 08/25/22 21:40 60 19 91 08/25/22 21:30 61 23 93 08/25/22 21:20 60 20 92 08/25/22 21:10 61 20 92 08/25/22 21:00 73 22 93 08/25/22 21:00 136/104 H 08/25/22 20:51 69 22 96 08/25/22 20:51 184/74 H 08/25/22 20:50 88 19 97 08/25/22 20:40 19 95 08/25/22 20:30 94 08/25/22 20:20 94 08/25/22 20:10 21 94 08/25/22 20:10 178/74 H 08/25/22 19:40 61 24 95 08/25/22 19:30 64 22 95 08/25/22 19:20 67 21 96 08/25/22 19:10 73 20 96 08/25/22 19:00 70 24 91 08/25/22 18:50 71 20 96 08/25/22 18:40 65 24 95 08/25/22 18:30 66 24 95 08/25/22 18:24 68 24 95 08/25/22 19:41 59 L 20 95 08/25/22 18:04 67 18 165/78 H 95 08/25/22 18:04 37.0 C 64 19 165/78 H 95 O2 Del Method 08/25/22 22:00 08/25/22 22:00 08/25/22 21:50 08/25/22 21:40 08/25/22 21:30 08/25/22 21:20 08/25/22 21:10 08/25/22 21:00 08/25/22 21:00 08/25/22 20:51 08/25/22 20:51 08/25/22 20:50 08/25/22 20:40 08/25/22 20:30 08/25/22 20:20 08/25/22 20:10 08/25/22 20:10 08/25/22 19:40 08/25/22 19:30 08/25/22 19:20 08/25/22 19:10 08/25/22 19:00 08/25/22 18:50 08/25/22 18:40 08/25/22 18:30 08/25/22 18:24 08/25/22 19:41 Room Air 08/25/22 18:04 Room Air 08/25/22 18:04 Room Air Laboratory Results Laboratory Results WBC 6.58 K/ul (4.8-10.8) 08/25/22 18:11 RBC 4.35 M/uL (3.93-5.22) 08/25/22 18:11 Hgb 13.5 g/dl (12.0-16.0) 08/25/22 18:11 Hct 39.4 % (34.1-44.9) 08/25/22 18:11 MCV 90.6 fL (80.0-100.0) 08/25/22 18:11 MCH 31.0 pg (25.0-34.0) 08/25/22 18:11 MCHC 34.3 g/dL (32.0-36.0) 08/25/22 18:11 RDW Std Deviation 45.6 fL (36.4-46.3) 08/25/22 18:11 RDW Coeff of Yoselin 13.4 % (11.5-14.5) 08/25/22 18:11 Plt Count 253 K/uL (130-400) 08/25/22 18:11 MPV 10.2 fL (9.4-12.3) 08/25/22 18:11 Immature Gran % (Auto) 0.3 % 08/25/22 18:11 Neut % (Auto) 71.7 % 08/25/22 18:11 Lymph % (Auto) 17.6 % 08/25/22 18:11 Burke % (Auto) 9.3 % 08/25/22 18:11 Eos % (Auto) 0.6 % 08/25/22 18:11 Baso % (Auto) 0.5 % 08/25/22 18:11 Neut # (Auto) 4.72 K/uL (1.4-6.5) 08/25/22 18:11 Lymph # (Auto) 1.16 K/uL (1.2-3.4) L 08/25/22 18:11 Burke # (Auto) 0.61 K/uL (0.24-0.82) 08/25/22 18:11 Eos # (Auto) 0.04 K/uL (0-0.50) 08/25/22 18:11 Baso # (Auto) 0.03 K/uL (0-0.2) 08/25/22 18:11 Immature Gran # (Auto) 0.02 K/uL (0.00-0.02) 08/25/22 18:11 Sodium 140 mmol/L (136-145) 08/25/22 18:11 Potassium 2.7 mmol/L (3.5-5.1) L 08/25/22 18:11 Chloride 106 mmol/L (98-107) 08/25/22 18:11 Carbon Dioxide 27 mmol/L (21-32) 08/25/22 18:11 Anion Gap 7 (3-11) 08/25/22 18:11 BUN 14 mg/dl (6-23) 08/25/22 18:11 Creatinine 0.81 mg/dl (0.6-1.2) 08/25/22 18:11 Est Cr Clr Drug Dosing 51.7 ml/min 08/25/22 18:11 Est GFR ( Amer) 80.1 ml/min 08/25/22 18:11 Est GFR (Non-Af Amer) 69.1 ml/min 08/25/22 18:11 BUN/Creatinine Ratio 17.3 (10-20) 08/25/22 18:11 Glucose 100 mg/dl (70-99(Fasting)) H 08/25/22 18:11 Calcium 9.4 mg/dl (8.5-10.1) 08/25/22 18:11 Magnesium 2.0 mg/dl (1.7-2.4) 08/25/22 18:11 Total Bilirubin 0.9 mg/dl (0.2-1.0) 08/25/22 18:11 Direct Bilirubin 0.1 mg/dl (0-0.2) 08/25/22 18:11 AST 14 U/L (13-39) 08/25/22 18:11 ALT 7 U/L (7-52) 08/25/22 18:11 Alkaline Phosphatase 48 U/L (34-104) 08/25/22 18:11 Total Protein 6.7 gm/dl (6.0-8.3) 08/25/22 18:11 Albumin 3.6 gm/dl (3.4-5.0) 08/25/22 18:11 Lipase 17 U/L (11-82) 08/25/22 18:11 Urine Color [place] 08/25/22 20:48 Urine Appearance Clear (Clear) 08/25/22 20:48 Urine pH 5.5 (4.5-7.5) 08/25/22 20:48 Ur Specific Chemult 1.020 (1.000-1.030) 08/25/22 20:48 Urine Protein Trace (Negative) H 08/25/22 20:48 Urine Glucose (UA) Negative (Negative) 08/25/22 20:48 Urine Ketones Trace (Negative) H 08/25/22 20:48 Urine Blood 3+ (Negative) H 08/25/22 20:48 Urine Nitrite Negative (Negative) 08/25/22 20:48 Urine Bilirubin Negative (Negative) 08/25/22 20:48 Urine Urobilinogen Negative (Negative) 08/25/22 20:48 Ur Leukocyte Esterase Trace (Negative) H 08/25/22 20:48 Urine WBC (Auto) 10-30 /hpf (0-5) H 08/25/22 20:48 Urine RBC (Auto) >30 /hpf (0-4) H 08/25/22 20:48 U Hyaline Cast (Auto) 1-5 /lpf (0-5) 08/25/22 20:48 U Epithel Cells (Auto) >30 /lpf (0-5) H 08/25/22 20:48 Urine Bacteria (Auto) Negative (Negative) 08/25/22 20:48 Impressions Abdomen/Pelvis CT 08/25/22 19:39 CT abd pelvis wo con CLINICAL HISTORY: flank pain TECHNIQUE: Helical axial images of the abdomen and pelvis were obtained. Automated dose lowering techniques and/or adjustment according to patient size were utilized for this exam. This exam was performed without intravenous contrast. CT DOSE: 352.10 mGy.cm COMPARISON: None available at the time of this dictation. FINDINGS: Lower chest: Bilateral small pleural effusions are seen. Liver: Unremarkable. No focal lesions are seen. Gallbladder and biliary tree: Patient is status post cholecystectomy. Physiologic prominence of the biliary ducts is noted. Pancreas: Unremarkable, no focal lesions. Spleen: Unremarkable. Adrenals: Unremarkable. Kidneys and ureters: Multiple cysts are seen in the bilateral kidneys. Bladder: Unremarkable. Reproductive organs: Unremarkable. Bowel: Numerous diverticula are seen and there is minimal increased stranding in the mid sigmoid colon. The appendix is normal. There is a small hiatal hernia. Lymph nodes Retroperitoneal: Unremarkable. Pelvic: Subcentimeter lymph nodes are noted. Mesenteric: Unremarkable. Peritoneum: Minimal vascular prominence is seen in the sigmoid colon and there is trace pelvic free fluid. No pneumoperitoneum or drainable fluid collection is seen. Vessels: Atherosclerotic calcifications are seen. Abdominal wall: Unremarkable. Bones: Degenerative changes in the visualized spine. IMPRESSION: Minimal fat stranding about the diverticula in the sigmoid colon may represent very mild diverticulitis without abscess or perforation. ACT 112: Negative or not required by law. Electronically signed by: Gerber Gallego M.D. 08/25/2022 9:[address] 08/25/22 19:39 CT head/brain wo con CLINICAL HISTORY: ams Technique: Contiguous axial CT images of the head were acquired from the base of the skull to the vertex without intravenous contrast administration. Images were viewed in brain, subdural and bone windows. Automated dose lowering techniques and/or adjustment according to patient size were utilized for this exam. Comparison: Comparison is made to CT head 04/09/2019 Findings: Areas of decreased attenuation are present in the periventricular and subcortical white matter bilaterally consistent with small vessel ischemic disease. Generalized cerebral atrophy with commensurate enlargement of the ventricles, sulci, and cisterns is also present. There is no acute intracranial hemorrhage or evidence of acute territorial infarction. No shift of the midline structures, mass effect, or extra-axial abnormalities are shown. Atherosclerotic calcifications are present in the intracranial segments of the internal carotid arteries. Imaged portions of the paranasal sinuses and mastoid air cells are clear. The orbits appear normal. There are no acute fractures of the calvaria or scalp swelling. Impression: No acute intracranial hemorrhage, no evidence of acute territorial infarction or other acute intracranial disease process. ACT 112: Negative or not required by law. Electronically signed by: Gerber Gallego M.D. 08/25/2022 9:36 PM PG Care Time/CCT Total # of Minutes Spent Total Time Spent with Patient: Total time spent is greater than 50% in coordination of care (as documented) at patient's floor/unit and/or counseling patient: Coding Level of Care Code 39374 INT INP/OBS CARE 2/55MIN Diagnoses Acute diverticulitis K57.92 Hypokalemia E87.6 Hypothyroidism E03.9 Mild cognitive impairment G31.84 Hypertension I10
[2022-08-25] MEDS ORDERED: NSS + 20MEQ KCL 20 MEQ/1,000 ML BAG IV SCH (22:15)
[2022-08-26] MEDS ORDERED: ACETAMINOPHEN 325 MG TAB PO PRN (01:44)
[2022-08-26] MEDS ORDERED: oxyCODONE HCL IR 5 MG TAB (IMMEDIATE RELEASE) PO PRN (01:44)
[2022-08-26] MEDS ORDERED: LACTATED RINGER'S 1,000 ML IV SCH (01:44)
[2022-08-26] MEDS ORDERED: POTASSIUM CHLORIDE CRTAB 20 MEQ TABCR PO STA (01:44)
[2022-08-26] MEDS: metroNIDAZOLE 500 MG/100 ML BAG IV SCH ×3 (05:02→20:23)
[2022-08-26] MEDS: LEVOTHYROXINE SODIUM 25 MCG TABLET PO SCH (06:05)
[2022-08-26 06:58] LABS: Hematocrit (blood only) 33.7 % (34.1-44.9); Hemoglobin 11.5 g/dl (12.0-16.0); Mean Corpuscular Hemoglobin 30.7 pg (25.0-34.0); Mean Corpuscular Hgb Conc 34.1 g/dL (32.0-36.0); Mean Corpuscular Volume 89.9 fL (80.0-100.0); Mean Platelet Volume 10.5 fL (9.4-12.3); Platelet Count 200 K/uL (130-400); RDW Coefficient of Variation 13.3 % (11.5-14.5); RDW Standard Deviation 44.2 fL (36.4-46.3); Red Blood Count 3.75 M/uL (3.93-5.22); White Blood Count 6.31 K/ul (4.8-10.8)
[2022-08-26 07:14] LABS: BUN Creatinine Ratio 17.7 (10-20); Calcium 8.4 mg/dl (8.5-10.1); Creatinine Clr Calc Pharmacy 64.6 ml/min; Est GFR (African American) 99.4 ml/min; Est GFR (Non-African American) 85.8 ml/min; Potassium 3.4 mmol/L (3.5-5.1)
[2022-08-26] MEDS ORDERED: POTASSIUM CHLORIDE 10 MEQ TABCR PO STA (08:28)
--- NOTE | 2022-08-26 08:30 | Hospitalist Progress Note ---
Date of Service August 26, 2022 Assessment & Plan (1) Right nephrolithiasis: Plan: 77yo female presented with flank pain since afternoon 1, CTAP w/ Minimal fat stranding about the diverticula in the sigmoid colon may represent very mild diverticulitis without abscess or perforation. NO abdominal pain on exam, but persistent nausea/vomiting Renal US ordered for further eval as no reported stone on initial imaging, however does have evidence for 6mm obstructing calculus in distal R ureter above UVJ w/ mild R hydroureteronephrosis. Additional punctate nonobstructing calculi in the right lower pole. NPO for diverticulitis as below as well, will continue incase urology able to intervene IVF x 1L on admit Cr is stable, remains on IVF, additional ordered w/ supp K given hypokalemia Urine cx pin-point growth -- monitor Strain urine, bladder scan as needed Measure I&O On Cipro/Flagyl for below -- should cover for possible UTI 2nd to stone as well given pin-point growth on urine cx -- monitor (hx klebsiella UTI 2019, pansensitive, tx w/ cipro at that t [facility]) Pain control/antiemetics prn -- added Zofran prn, continue tylenol but d/c the Oxycodone to prevent worsening cognitive issues Urology consulted- appreciate assistance, possibly able to take for intervention tonight (2) Acute diverticulitis: Plan: 77yo female with history presenting with acute uncomplicated diverticulitis. Per family in ER, patient with ongoing L flank pain since afternoon 1. PCP notes issues w/ constipation at baseline and trial miralax Continues on Cipro/Flagyl WBC wnl, afebrile IVF LR @ 80cc/hr x 1L, brina continue NS +20k while npo Ordered diet regular this am but had vomiting (more likely due to obstructing stone as above) -- had changed to clear liquid diet prior to vomiting given the diverticulitis on imaging, now NPO Pain control/antiemetics prn PT/OT consulted No abscess/fluid collection/need for general surgery consult at this time but I did discuss with them and can consult if needed/any worsening Will need f/u GI after d/c 6-8 weeks (3) Hypokalemia: Plan: Low on admit, 2.7 Hx of such, on replacement but was also on dyazide diuretic, resolved since stopping that, but low (poor PO intake) on admit Replacement ordered, 10meq this morning PO before being made NPO Added K to IVF, monitor on repeat labs (4) Hypothyroidism: Plan: Chronic, hx subclinical hypothyroidism, weight loss (did report weight loss from to June, blames on poor appetite) Continue Synthroid 25mcg daily Check TSH (5) Mild cognitive impairment: Plan: Patient oriented to self and hospital (with prompting). Functional and independent at home Delirium prevention strategies with frequent orientation Answering questions appropriately, forgetful but easily reoriented Check TSH/B12 Of note, she had been on lexapro in the past for anxiety/depression but wanted to stop this in December 2021, had concerns about memory/withdrawn behavior in July 2022 in follow up ?if underlying depression contributing to such (6) Hypertension: Plan: Chronic. Blood pressure adequately controlled Continue Verapamil 360mg po daily DVT prophylaxis : none ordered on admit, will order SCDs, if not up/ambulating consider adding chemoproph JOSE EDUARDO - Arnulfo (son) [phone] , will be visiting this afternoon Plan NPO, urology consulted for obstructing stone -- possibly if OR free Dr Ennis could take patient for stenting tonight Admission and Anticipated Discharge Date Admission Date: August 25, 2022 Supervising Physician Co-Signing Physician Notes PA Supervision Note: I did not personally see or examine the patient today, but I verified all [place] points of DARCI Panda's assessment and plan with the following exceptions/additions: None Subjective had ordered regular diet this morning, but was able to change to clear liquids prior. eval this morning following, feeling very nauseated, had about 50cc green bilious vomiting. Discussed with nursing, no antiemetics on board. Put in for zofran IV 4mg x1 NOW, prn. Also asked to get baseline EKG given also on ciprofloxacin. Patient denies CP/SOB at present. Also denies abdominal pain currently, however focused on the nausea. Denies ever having any symptoms similar to this, however does appear to have mild cognitive deficit at baseline/memory issues. Stated her PCP was a Dr Lambert instead of Dr Bruce, but that she is not sure why exactly she is in the hospital. Is slightly tremulous, discussed making NPO and continuing IVF and abx/bowel rest. Discussed hypothyroidism, prior elevations. Denies any recent adjustments to medications. Did place order to check TSH given mild confusion (CT head on admit negative impression) Review of Systems Review of Systems: All systems reviewed & are unremarkable except as noted in HPI & below Physical Exam Physical Exam: General: elderly female sitting up in bed, reporting nausea, emesis bag in hand, mildly tremulous feeling like she is going to vomit HEENT: head normocephalic, atraumatic, mm dry, trachea midline Resp: CTA, diminished in the bases, bibasilar crackles, no wheezing, on room air 93% CV: RRR, no m/r/g, no pitting edema/calf tenderness GI: slowed bowel sounds, but present, no overt tenderness to palpation, no guarding or rigidity ; no henley, no overt CVA tenderness on exam however does have some mild R flank pain MSK/Neuro/psych: nonfocal, no facial droop/slurred speech, answering questions appropriately when asked but is forgetful at times regarding why she is in the hospital/medical history Skin: warm, dry, increased turgor Results & Data Results & Data ([facility]) Vital Signs (Past 12 Hours) Vital Signs Temp Pulse Pulse Resp BP BP Pulse Ox 08/26/22 07:43 36.6 C 57 L 16 124/69 93 08/26/22 01:30 36.7 C 63 16 155/70 H 94 08/26/22 01:50 36.7 C 63 16 155/70 H 94 08/26/22 01:00 62 20 104/72 93 08/26/22 00:50 57 L 20 08/26/22 00:40 60 21 08/26/22 00:30 59 L 20 08/26/22 00:20 61 20 08/26/22 00:10 60 23 08/26/22 00:00 59 L 22 08/25/22 23:50 59 L 20 08/25/22 23:40 60 24 08/25/22 23:30 62 24 08/25/22 23:20 64 20 08/25/22 23:10 75 24 08/25/22 23:00 66 22 08/25/22 23:00 168/64 H 08/25/22 22:58 134/90 08/25/22 22:58 61 21 08/25/22 22:50 64 94 08/25/22 22:40 67 23 95 08/25/22 22:30 67 20 08/25/22 22:20 62 94 08/25/22 22:10 60 24 93 08/25/22 22:00 65 23 93 08/25/22 22:00 139/73 08/25/22 21:50 59 L 20 92 08/25/22 21:40 60 19 91 08/25/22 21:30 61 23 93 08/25/22 21:20 60 20 92 08/25/22 21:10 61 20 92 08/25/22 21:00 73 22 93 08/25/22 21:00 136/104 H 08/25/22 20:51 69 22 96 08/25/22 20:51 184/74 H 08/25/22 20:50 88 19 97 08/25/22 20:40 19 95 08/25/22 20:30 94 O2 Del Method 08/26/22 07:43 Room Air 08/26/22 01:30 Room Air 08/26/22 01:50 Room Air 08/26/22 01:00 Room Air 08/26/22 00:50 08/26/22 00:40 08/26/22 00:30 08/26/22 00:20 08/26/22 00:10 08/26/22 00:00 08/25/22 23:50 08/25/22 23:40 08/25/22 23:30 08/25/22 23:20 08/25/22 23:10 08/25/22 23:00 08/25/22 23:00 08/25/22 22:58 08/25/22 22:58 08/25/22 22:50 08/25/22 22:40 08/25/22 22:30 08/25/22 22:20 08/25/22 22:10 08/25/22 22:00 08/25/22 22:00 08/25/22 21:50 08/25/22 21:40 08/25/22 21:30 08/25/22 21:20 08/25/22 21:10 08/25/22 21:00 08/25/22 21:00 08/25/22 20:51 08/25/22 20:51 08/25/22 20:50 08/25/22 20:40 08/25/22 20:30 Laboratory Results 08/26/22 08/26/22 08/25/22 Range/Units 06:10 06:10 23:43 WBC 6.31 (4.8-10.8) K/ul RBC 3.75 L (3.93-5.22) M/uL Hgb 11.5 L (12.0-16.0) g/dl Hct 33.7 L (34.1-44.9) % MCV 89.9 (80.0-100.0) fL MCH 30.7 (25.0-34.0) pg MCHC 34.1 (32.0-36.0) g/dL RDW Std Deviation 44.2 (36.4-46.3) fL RDW Coeff of [place]oselin 13.3 (11.5-14.5) % Plt Count 200 (130-400) K/uL MPV 10.5 (9.4-12.3) fL Immature Gran % (Auto) % Neut % (Auto) % Lymph % (Auto) % [place] % (Auto) % Eos % (Auto) % Baso % (Auto) % Neut # (Auto) (1.4-6.5) K/uL Lymph # (Auto) (1.2-3.4) K/uL [place] # (Auto) (0.24-0.82) K/uL Eos # (Auto) (0-0.50) K/uL Baso # (Auto) (0-0.2) K/uL Immature Gran # (Auto) (0.00-0.02) K/uL Sodium 140 (136-145) mmol/L Potassium 3.4 L D (3.5-5.1) mmol/L Chloride 110 H (98-107) mmol/L Carbon Dioxide 24 (21-32) mmol/L Anion Gap 6 (3-11) BUN 11 (6-23) mg/dl Creatinine 0.62 (0.6-1.2) mg/dl Est Cr Clr Drug Dosing 64.6 ml/min Est GFR ( Amer) 99.4 ml/min Est GFR (Non-Af Amer) 85.8 ml/min BUN/Creatinine Ratio 17.7 (10-20) Glucose 102 H (70-99(Fasting)) mg/dl Calcium 8.4 L (8.5-10.1) mg/dl Magnesium (1.7-2.4) mg/dl Total Bilirubin (0.2-1.0) mg/dl Direct Bilirubin (0-0.2) mg/dl AST (13-39) U/L ALT (7-52) U/L Alkaline Phosphatase (34-104) U/L Total Protein (6.0-8.3) gm/dl Albumin (3.4-5.0) gm/dl Lipase (11-82) U/L Urine Color Urine Appearance (Clear) Urine pH (4.5-7.5) Ur Specific [place] (1.000-1.030) Urine Protein (Negative) Urine Glucose (UA) (Negative) Urine Ketones (Negative) Urine Blood (Negative) Urine Nitrite (Negative) Urine Bilirubin (Negative) Urine Urobilinogen (Negative) Ur Leukocyte Esterase (Negative) Urine WBC (Auto) (0-5) /hpf Urine RBC (Auto) (0-4) /hpf U Hyaline Cast (Auto) (0-5) /lpf U Epithel Cells (Auto) (0-5) /lpf Urine Bacteria (Auto) (Negative) SARS-CoV-2, RNA, NAAT NEGATIVE (NEGATIVE) 08/25/22 08/25/22 08/25/22 Range/Units 20:48 18:11 18:11 WBC (4.8-10.8) K/ul RBC (3.93-5.22) M/uL Hgb (12.0-16.0) g/dl Hct (34.1-44.9) % MCV (80.0-100.0) fL MCH (25.0-34.0) pg MCHC (32.0-36.0) g/dL RDW Std Deviation (36.4-46.3) fL RDW Coeff of Yoselin (11.5-14.5) % Plt Count (130-400) K/uL MPV (9.4-12.3) fL Immature Gran % (Auto) % Neut % (Auto) % Lymph % (Auto) % [place] % (Auto) % Eos % (Auto) % Baso % (Auto) % Neut # (Auto) (1.4-6.5) K/uL Lymph # (Auto) (1.2-3.4) K/uL [place] # (Auto) (0.24-0.82) K/uL Eos # (Auto) (0-0.50) K/uL Baso # (Auto) (0-0.2) K/uL Immature Gran # (Auto) (0.00-0.02) K/uL Sodium 140 (136-145) mmol/L Potassium 2.7 L (3.5-5.1) mmol/L Chloride 106 (98-107) mmol/L Carbon Dioxide 27 (21-32) mmol/L Anion Gap 7 (3-11) BUN 14 (6-23) mg/dl Creatinine 0.81 (0.6-1.2) mg/dl Est Cr Clr Drug Dosing 51.7 ml/min Est GFR ( Amer) 80.1 ml/min Est GFR (Non-Af Amer) 69.1 ml/min BUN/Creatinine Ratio 17.3 (10-20) Glucose 100 H (70-99(Fasting)) mg/dl Calcium 9.4 (8.5-10.1) mg/dl Magnesium 2.0 (1.7-2.4) mg/dl Total Bilirubin 0.9 (0.2-1.0) mg/dl Direct Bilirubin 0.1 (0-0.2) mg/dl AST 14 (13-39) U/L ALT 7 (7-52) U/L Alkaline Phosphatase 48 (34-104) U/L Total Protein 6.7 (6.0-8.3) gm/dl Albumin 3.6 (3.4-5.0) gm/dl Lipase 17 (11-82) U/L Urine Color [place] Urine Appearance Clear (Clear) Urine pH 5.5 (4.5-7.5) Ur Specific [place] 1.020 (1.000-1.030) Urine Protein Trace H (Negative) Urine Glucose (UA) Negative (Negative) Urine Ketones Trace H (Negative) Urine Blood 3+ H (Negative) Urine Nitrite Negative (Negative) Urine Bilirubin Negative (Negative) Urine Urobilinogen Negative (Negative) Ur Leukocyte Esterase Trace H (Negative) Urine WBC (Auto) 10-30 H (0-5) /hpf Urine RBC (Auto) >30 H (0-4) /hpf U Hyaline Cast (Auto) 1-5 (0-5) /lpf U Epithel Cells (Auto) >30 H (0-5) /lpf Urine Bacteria (Auto) Negative (Negative) SARS-CoV-2, RNA, NAAT (NEGATIVE) 08/25/22 Range/Units 18:11 WBC 6.58 (4.8-10.8) K/ul RBC 4.35 (3.93-5.22) M/uL Hgb 13.5 (12.0-16.0) g/dl Hct 39.4 (34.1-44.9) % MCV 90.6 (80.0-100.0) fL MCH 31.0 (25.0-34.0) pg MCHC 34.3 (32.0-36.0) g/dL RDW Std Deviation 45.6 (36.4-46.3) fL RDW Coeff of Yoselin 13.4 (11.5-14.5) % Plt Count 253 (130-400) K/uL MPV 10.2 (9.4-12.3) fL Immature Gran % (Auto) 0.3 % Neut % (Auto) 71.7 % Lymph % (Auto) 17.6 % [place] % (Auto) 9.3 % Eos % (Auto) 0.6 % Baso % (Auto) 0.5 % Neut # (Auto) 4.72 (1.4-6.5) K/uL Lymph # (Auto) 1.16 L (1.2-3.4) K/uL [place] # (Auto) 0.61 (0.24-0.82) K/uL Eos # (Auto) 0.04 (0-0.50) K/uL Baso # (Auto) 0.03 (0-0.2) K/uL Immature Gran # (Auto) 0.02 (0.00-0.02) K/uL Sodium (136-145) mmol/L Potassium (3.5-5.1) mmol/L Chloride (98-107) mmol/L Carbon Dioxide (21-32) mmol/L Anion Gap (3-11) BUN (6-23) mg/dl Creatinine (0.6-1.2) mg/dl Est Cr Clr Drug Dosing ml/min Est GFR ( Amer) ml/min Est GFR (Non-Af Amer) ml/min BUN/Creatinine Ratio (10-20) Glucose (70-99(Fasting)) mg/dl Calcium (8.5-10.1) mg/dl Magnesium (1.7-2.4) mg/dl Total Bilirubin (0.2-1.0) mg/dl Direct Bilirubin (0-0.2) mg/dl AST (13-39) U/L ALT (7-52) U/L Alkaline Phosphatase (34-104) U/L Total Protein (6.0-8.3) gm/dl Albumin (3.4-5.0) gm/dl Lipase (11-82) U/L Urine Color Urine Appearance (Clear) Urine pH (4.5-7.5) Ur Specific [place] (1.000-1.030) Urine Protein (Negative) Urine Glucose (UA) (Negative) Urine Ketones (Negative) Urine Blood (Negative) Urine Nitrite (Negative) Urine Bilirubin (Negative) Urine Urobilinogen (Negative) Ur Leukocyte Esterase (Negative) Urine WBC (Auto) (0-5) /hpf Urine RBC (Auto) (0-4) /hpf U Hyaline Cast (Auto) (0-5) /lpf U Epithel Cells (Auto) (0-5) /lpf Urine Bacteria (Auto) (Negative) SARS-CoV-2, RNA, NAAT (NEGATIVE) Diagnostic Findings Abdomen/Pelvis CT 08/25/22 19:39 CT abd pelvis wo con CLINICAL HISTORY: flank pain TECHNIQUE: Helical axial images of the abdomen and pelvis were obtained. Automated dose lowering techniques and/or adjustment according to patient size were utilized for this exam. This exam was performed without intravenous contrast. CT DOSE: 352.10 mGy.cm COMPARISON: None available at the time of this dictation. FINDINGS: Lower chest: Bilateral small pleural effusions are seen. Liver: Unremarkable. No focal lesions are seen. Gallbladder and biliary tree: Patient is status post cholecystectomy. Ph ysiologic prominence of the biliary ducts is noted. Pancreas: Unremarkable, no focal lesions. Spleen: Unremarkable. Adrenals: Unremarkable. Kidneys and ureters: Multiple cysts are seen in the bilateral kidneys. Bladder: Unremarkable. Reproductive organs: Unremarkable. Bowel: Numerous diverticula are seen and there is minimal increased stranding in the mid sigmoid colon. The appendix is normal. There is a small hiatal hernia. Lymph nodes Retroperitoneal: Unremarkable. Pelvic: Subcentimeter lymph nodes are noted. Mesenteric: Unremarkable. Peritoneum: Minimal vascular prominence is seen in the sigmoid colon and there is trace pelvic free fluid. No pneumoperitoneum or drainable fluid collection is seen. Vessels: Atherosclerotic calcifications are seen. Abdominal wall: Unremarkable. Bones: Degenerative changes in the visualized spine. IMPRESSION: Minimal fat stranding about the diverticula in the sigmoid colon may represent very mild diverticulitis without abscess or perforation. ACT 112: Negative or not required by law. Electronically signed by: Gerber Gallego M.D. 08/25/2022 9:[address] 08/25/22 19:39 CT head/brain wo con CLINICAL HISTORY: ams Technique: Contiguous axial CT images of the head were acquired from the base of the skull to the vertex without intravenous contrast administration. Images were viewed in brain, subdural and bone windows. Automated dose lowering techniques and/or adjustment according to patient size were utilized for this exam. Comparison: Comparison is made to CT head 04/09/2019 Findings: Areas of decreased attenuation are present in the periventricular and subcortical white matter bilaterally consistent with small vessel ischemic disease. Generalized cerebral atrophy with commensurate enlargement of the ventricles, sulci, and cisterns is also present. There is no acute intracranial hemorrhage or evidence of acute territorial infarction. No shift of the midline structures, mass effect, or extra-axial abnormalities are shown. Atherosclerotic calcifications are present in the intracranial segments of the internal carotid arteries. Imaged portions of the paranasal sinuses and mastoid air cells are clear. The orbits appear normal. There are no acute fractures of the calvaria or scalp swelling. Impression: No acute intracranial hemorrhage, no evidence of acute territorial infarction or other acute intracranial disease process. ACT 112: Negative or not required by law. Electronically signed by: Gerber Gallego M.D. 08/25/2022 9:36 PM Renal Ultrasound 08/26/22 13:44 ULTRASOUND KIDNEYS AND BLADDER CLINICAL HISTORY: Flank pain. Hematuria. COMPARISON STUDY: Abdominal CT dated 08/25/2022. TECHNIQUE: Real-time, grayscale, and color flow sonography of the kidneys and bladder is performed. Images are reviewed in the transverse and longitudinal planes. FINDINGS: Kidneys: The kidneys demonstrate mild cortical atrophy. Echotexture is normal. The right kidney measures 9.8 cm in length and the left kidney measures 9.7 cm in length. There is mild right hydronephrosis. Nonobstructing calculi are seen in the lower pole of the right kidney. Numerous bilateral renal cysts measure up to 4.9 cm. There is no sonographic evidence of contour deforming renal mass lesion. No perinephric fluid is identified. Bladder: The partially decompressed bladder is grossly normal in appearance. Ureteral jets were not seen. IMPRESSION: 1. The kidneys demonstrate cortical atrophy and there is mild right-sided hydronephrosis. This is secondary to a distal obstructing right ureteral stone. 2. Additional nonobstructing right renal calculi. 3. The bladder was partially decompressed and grossly unremarkable. ACT 112: Negative or not required by law. Electronically signed by: Raj Hernandez M.D. 08/26/2022 2:45 PM PG Care Time/CCT Total # of Minutes Spent Total Time Spent with Patient: Total time spent is greater than 50% in coordination of care (as documented) at patient's floor/unit and/or counseling patient: Coding Level of Care Code 31622 SUB INP/OBS CARE 3/50MIN Diagnoses Right nephrolithiasis N20.0 Acute diverticulitis K57.92 Hypokalemia E87.6 Hypothyroidism E03.9 Mild cognitive impairment G31.84 Hypertension I10
[2022-08-26] MEDS: VERAPAMIL HCL 180 MG TABCR PO SCH (09:19)
[2022-08-26] MEDS ORDERED: ONDANSETRON INJ 2 MG/ML 2 ML VIAL IV PRN ×2 (09:30→17:35)
[2022-08-26] MEDS ORDERED: ONDANSETRON INJ 2 MG/ML 2 ML VIAL IV STA (09:30)
[2022-08-26] MEDS: CIPROFLOXACIN / D5W 400 MG/200 ML BAG IV SCH ×2 (10:27→22:09)
[2022-08-26] MEDS: FAMOTIDINE 20 MG in SYRINGE 3 ML IV SCH (14:15)
--- NOTE | 2022-08-26 14:47 | Ultrasound Report ---
ULTRASOUND KIDNEYS AND BLADDER CLINICAL HISTORY: Flank pain. Hematuria. COMPARISON STUDY: Abdominal CT dated 08/25/2022. TECHNIQUE: Real-time, grayscale, and color flow sonography of the kidneys and bladder is performed. I mages are reviewed in the transverse and longitudinal planes. FINDINGS: Kidneys: The kidneys demonstrate mild cortical atrophy. Echotexture is normal. The right kidney measu res 9.8 cm in length and the left kidney measures 9.7 cm in length. There is mild right hydronephrosi s. Nonobstructing calculi are seen in the lower pole of the right kidney. Numerous bilateral renal cy sts measure up to 4.9 cm. There is no sonographic evidence of contour deforming renal mass lesion. No perinephric fluid is identified. Bladder: The partially decompressed bladder is grossly normal in appearance. Ureteral jets were not s een. IMPRESSION: 1. The kidneys demonstrate cortical atrophy and there is mild right-sided hydronephrosis. This is sec ondary to a distal obstructing right ureteral stone. 2. Additional nonobstructing right renal calculi. 3. The bladder was partially decompressed and grossly unremarkable. ACT 112: Negative or not required by law. Electronically signed by: Raj Hernandez M.D. 08/26/2022 2:45 PM
[2022-08-26] MEDS ORDERED: NSS + 20MEQ KCL 20 MEQ/1,000 ML BAG IV SCH (15:15)
--- NOTE | 2022-08-26 15:34 | Urology Consultation ---
Date of Consultation August 26, 2022 Assessment & Plan (1) Right nephrolithiasis: Plan 77 yo F with right distal ureteral calculus -Discussed options with patient and son (POA) including observation vs stent (with possible stone treatment). They would prefer stent. -To OR for cystoscopy, right retrograde pyelogram, possible ureteroscopy with laser lithotripsy, basket extraction, right stent placement. Will on attempt to treat stone if easily reached and urine does not appear purulent upon wire placement -Risks and benefits discussed, consent obtained -Medicine feels patient is otherwise stable for a procedure today. History of Present Illness Reason for Consultation: Right distal ureteral calculus Attending Physician: Aaliyah Lara MD History of Present Illness 77 yo F admitted initially for abdominal pain and possible diverticulitis. Addendum on CT this morning called a 6mm distal right ureteral calculus, which I independently reviewed and agree with. She has minimal hydronephrosis. UA showed WBCs and trace luekocyte esterase but otherwise negative. Culture is pinpoint growth but reincubating. Hemodynamically stable and afebrile. WBC 6, Creatinine 0.62. Currently on cipro and flagyl. Last ate at 830am. Allergies Allergy/AdvReac Type Severity Reaction Status Date / Time amoxicillin Allergy Mild Hives Verified 08/25/22 20:54 Penicillins Allergy Mild Hives Verified 08/25/22 20:54 KATIANA Inhibitors Allergy Verified 08/25/22 20:54 mometasone furoate Allergy Verified 08/25/22 20:54 [From Nasonex] paroxetine [From Paxil] Allergy Verified 08/25/22 20:54 Home Medications Medication Instructions Recorded Confirmed Type cholecalciferol (vitamin D3) 25 2,000 unit PO QAM 11/03/20 08/25/22 History mcg (1,000 unit) chewable tablet (Vitamin D3) levothyroxine 25 mcg tablet 25 mcg PO DAILYBB 08/25/22 08/25/22 History raloxifene 60 mg tablet 60 mg PO QPM 08/25/22 08/25/22 History verapamil 180 mg 24 hr 360 mg PO DAILY 08/25/22 08/25/22 History capsule,extended release Patient History Medical History Bilateral neural hearing loss Chronic rhinitis Depression with anxiety Dyslipidemia Family history of breast cancer in first degree relative three sisters with breast cancer GERD (gastroesophageal reflux disease) Hypertension Hypothyroidism Mild cognitive impairment Osteoporosis Sleep apnea Vitamin D deficiency Surgical History Hx of cholecystectomy Hx of foot surgery S/P colonoscopy S/P tubal ligation Family History Father Alzheimer disease Sister Breast cancer Dementia Other Cancer Hypertension No family history of adverse response to anesthesia No family history of bleeding disorder Denies family history of Rheumatoid arthritis Sudden SIDS (sudden syndrome) Ovarian cancer Prostate cancer Diabetes Deep vein thrombosis Osteoporosis Coronary heart disease Dyslipidemia Cerebral aneurysm Bipolar disorder Clotting disorder Crohn's disease Depression Heart disease Kidney disease Myocardial infarction Osteoarthritis Schizophrenia Congenital kidney disease Gestational diabetes Lung cancer COPD (chronic obstructive pulmonary disease) Colorectal cancer Pulmonary embolism Lung disease Ulcerative colitis Colonic polyp Stroke Asthma Cystic kidney disease Social History Smoking Status: Never smoker Second Hand Exposure: No; Hx Alcohol Use: No Hx Substance Use: No Preferred Language: German Communication Ability: Effective Communication Ability Comment: Periods of confusion. Visual Impairment: No Limitations Hearing Ability: Hard of Hearing Child Care Assistant Required: No Beliefs That Will Affect Care: None marital status: Current Living Situation: Spouse current occupational status: retired How many Children do You have: 3 Other Information That Helps Us Care for You: No Feels Safe at Home: Yes Safety Concerns: Feels Safe At This Time Childhood Exposure to Second-Hand Smoke: No caffeine: No during the past year weight has: remained stable Dental Care, Regularly: Yes Physical Activity Frequency: Daily Seatbelt Use: always Sunscreen Use: No Assistive Devices: Hospital Bed and Walker Review of Systems Review of Systems: 14 point review of systems negative outside of what is listed above in HPI Physical Exam Physical Exam: General: Alert and oriented, no acute distress HEENT: Normocephalic, mucous membranes moist Cardiovascular: Regular rate Pulmonary: Nonlabored respirations Abdomen: Nondistended Extremities: Moves all 4 spontaneously Neuro: No gross deficits Skin: Warm, dry, no rashes noted Results & Data ([facility]) Vital Signs (Past 12 Hours) Vital Signs Temp Pulse Resp BP Pulse Ox O2 Del Method 08/26/22 13:31 36.8 C 64 16 155/79 H 93 Room Air 08/26/22 09:18 60 160/78 H 08/26/22 07:43 36.6 C 57 L 16 124/69 93 Room Air PG Care Time/CCT Total # of Minutes Spent Total Time Spent with Patient: Total time spent is greater than 50% in coordination of care (as documented) at patient's floor/unit and/or counseling patient: Coding Level of Care Code 22423 INT INP/OBS CARE 255MIN Diagnoses Right nephrolithiasis N20.0
--- NOTE | 2022-08-26 15:39 | XRay Report ---
SINGLE VIEW CHEST CLINICAL HISTORY: Nausea and vomiting. Bibasilar crackles FINDINGS: An AP, portable, upright chest radiograph is compared to study dated 12/14/2016. The heart is enlarged. The pulmonary vasculature is not congested. Chronic reticular thickening is similar to pre vious. There is bibasilar scarring/atelectasis. There is trace left pleural effusion. The lungs and p leural spaces are otherwise clear. No pneumothorax is seen. The skeletal structures are osteopenic. T he bony thorax is grossly intact. IMPRESSION: Cardiomegaly and trace left pleural effusion. ACT 112: Negative or not required by law. Electronically signed by: Raj Hernandez M.D. 08/26/2022 3:37 PM
--- NOTE | 2022-08-26 15:40 | XRay Report ---
KUB CLINICAL HISTORY: Nausea and vomiting. Follow-up ileus. Flank pain. FINDINGS: 2 AP supine abdominal radiographs are correlated with abdominal CT dated 08/25/2022. There i s a nonobstructed abdominal bowel gas pattern. Mild fecal retention is seen throughout the colon. No evidence of intraperitoneal free air is seen on these supine images. A 6 mm calcification in the righ t pelvis likely represents a known obstructing distal ureteral stone. There are numerous additional p elvic phleboliths. No additional calcifications are clearly seen projecting over either kidney. The s keletal structures are osteopenic and appear intact. There is mild lumbosacral spondylosis. A trace l eft pleural effusion is noted. IMPRESSION: 1. A 6 mm calcification in the right pelvis likely corresponds to the patient's known distal ureteral stone. 2. No bowel obstruction. Electronically signed by: Raj Hernandez M.D. 08/26/2022 3:39 PM
--- NOTE | 2022-08-26 15:57 | Anesthesiology Consultation ---
Date of Service August 26, 2022 Assessment & Plan Chart Review Chart Review: Acceptable Risk for Surgery and Patient NOT seen in Pre Admission Testing Consults Requested none ASA ASA3E History Height/Weight Height: 5 ft 2 in Weight: 63.9 kg Allergies Allergy/AdvReac Type Severity Reaction Status Date / Time amoxicillin Allergy Mild Hives Verified 08/25/22 20:54 Penicillins Allergy Mild Hives Verified 08/25/22 20:54 KATIANA Inhibitors Allergy Verified 08/25/22 20:54 mometasone furoate Allergy Verified 08/25/22 20:54 [From Nasonex] paroxetine [From Paxil] Allergy Verified 08/25/22 20:54 Medications Home Medications Medication Instructions Recorded Confirmed Last Taken cholecalciferol (vitamin D3) 25 2,000 unit PO QAM 11/03/20 08/25/22 Unknown mcg (1,000 unit) chewable tablet (Vitamin D3) levothyroxine 25 mcg tablet 25 mcg PO DAILYBB 08/25/22 08/25/22 Unknown raloxifene 60 mg tablet 60 mg PO QPM 08/25/22 08/25/22 Unknown verapamil 180 mg 24 hr 360 mg PO DAILY 08/25/22 08/25/22 Unknown capsule,extended release Active Medications Generic Name Dose Route Start Last Admin Trade Name Freq PRN Reason Stop Dose Admin Ciprofloxacin 400 mg in 200 mls @ 100 mls/hr 08/26/22 10:00 08/26/22 12:37 Cipro / D5w IV 09/05/22 09:59 Infused Q12H SHERYL Infusion Protocol Metronidazole 500 mg in 100 mls @ 100 mls/hr 08/26/22 06:00 08/26/22 15:25 Flagyl IV 09/05/22 05:59 Infused Q8H SHERYL Infusion Famotidine 20 mg/ Syringe 5 mls @ 2.5 mls/min 08/26/22 13:30 08/26/22 14:15 IV 09/25/22 13:29 2.5 mls/min DAILY SHERYL Administration Potassium Chloride/Sodium Chloride 20 meq in 1,000 mls @ 75 mls/hr 08/26/22 15:15 08/26/22 15:29 Normal Saline W/20 Meq Kcl IV 09/25/22 15:14 75 mls/hr .[id number] SHERYL Administration Protocol Levothyroxine Sodium 25 mcg 08/26/22 06:30 08/26/22 06:05 Levothyroxine Sodium 25 Mcg Tablet PO 09/25/22 06:29 25 mcg DAILYBB SHERYL Administration Ondansetron HCl 4 mg 08/26/22 09:30 08/26/22 15:53 Ondansetron Inj 2 Mg/Ml 2 Ml Vial IV 09/25/22 09:29 4 mg Q4H PRN Administration Nausea Verapamil HCl 360 mg 08/26/22 09:00 08/26/22 09:19 Verapamil Hcl 180 Mg Tabcr PO 09/25/22 08:59 360 mg DAILY SHERYL Administration Past Medical History Medical History Bilateral neural hearing loss Chronic rhinitis Depression with anxiety Dyslipidemia Family history of breast cancer in first degree relative three sisters with breast cancer GERD (gastroesophageal reflux disease) Hypertension Hypothyroidism Mild cognitive impairment Osteoporosis Sleep apnea Vitamin D deficiency Exercise / Class Metabolic Activity III < 4 Walking/Shop/Light housework Past Family History Family History Father Alzheimer disease Sister Breast cancer Dementia Other Cancer Hypertension No family history of adverse response to anesthesia No family history of bleeding disorder Denies family history of Rheumatoid arthritis Sudden SIDS (sudden syndrome) Ovarian cancer Prostate cancer Diabetes Deep vein thrombosis Osteoporosis Coronary heart disease Dyslipidemia Cerebral aneurysm Bipolar disorder Clotting disorder Crohn's disease Depression Heart disease Kidney disease Myocardial infarction Osteoarthritis Schizophrenia Congenital kidney disease Gestational diabetes Lung cancer COPD (chronic obstructive pulmonary disease) Colorectal cancer Pulmonary embolism Lung disease Ulcerative colitis Colonic polyp Stroke Asthma Cystic kidney disease Past Surgical History Surgical History Hx of cholecystectomy Hx of foot surgery S/P colonoscopy S/P tubal ligation Past Anesthesia History No Hx of Anesthesia Complications and No Family Hx of Anesthesia Complications History of PONV No Hx of PONV and No Hx of Motion Sickness Social History Smoking Status: Never smoker Hx Alcohol Use: No Hx Substance Use: No Physical Exam Vital Signs Last Vital Signs Temp 36.6 C 08/26/22 15:37 Pulse 67 08/26/22 15:37 Resp 16 08/26/22 15:37 BP 124/72 08/26/22 15:37 Pulse Ox 91 08/26/22 15:37 O2 Del Method 08/26/22 15:37 Testing Laboratory Results 08/26/22 06:10 08/26/22 06:10 Urine Color [place] 08/25/22 20:48 Urine Appearance Clear (Clear) 08/25/22 20:48 Urine pH 5.5 (4.5-7.5) 08/25/22 20:48 Ur Specific [place] 1.020 (1.000-1.030) 08/25/22 20:48 Urine Protein Trace (Negative) H 08/25/22 20:48 Urine Glucose (UA) Negative (Negative) 08/25/22 20:48 Urine Ketones Trace (Negative) H 08/25/22 20:48 Urine Nitrite Negative (Negative) 08/25/22 20:48 Ur Leukocyte Esterase Trace (Negative) H 08/25/22 20:48 Urine WBC (Auto) 10-30 /hpf (0-5) H 08/25/22 20:48 Urine RBC (Auto) >30 /hpf (0-4) H 08/25/22 20:48 U Hyaline Cast (Auto) 1-5 /lpf (0-5) 08/25/22 20:48 U Epithel Cells (Auto) >30 /lpf (0-5) H 08/25/22 20:48 Urine Bacteria (Auto) Negative (Negative) 08/25/22 20:48 08/25/22 20:48 Urine Culture - Preliminary Urine,Clean Catch Pin-point growth present, reincubating. Electrocardiogram Date: 08/26/22 Findings: + NSR @ (@ 66) and + NSST changes Chest X-Ray Date: 08/26/22 Findings: + NAD, + cardiomegaly and + pleural effusion (trace left pleural effusion)
[2022-08-26] MEDS ORDERED: fentaNYL citrate 100 MCG/2 ML VIAL ONE (16:40)
[2022-08-26] MEDS ORDERED: PROPOFOL IV EMULSION 10 MG/ML 20 ML VIAL IV ONE (16:40)
[2022-08-26] MEDS ORDERED: DIATRIZOATE MEGLUMINE 30% 100ML VIAL INSTIL PRN (17:09)
--- NOTE | 2022-08-26 17:20 | Post Operative Brief Note ---
PG Immediate Post Op with CF Date of Surgery August 26, 2022 Pre & Post Diagnosis Operation Date: 08/26/22 16:00 Pre-Op Diagnosis: Right Kidney stone Post-Op Diagnosis: Right Kidney stone I identified the patient and participated in the time-out.: Yes Procedure Operation Date: 08/26/22 16:00 Actual Procedures p Cystoscopy, Right Retrograde Pyelogram(Not Applicable) - Tony Ennis MD s Ureteral Stent Insertion Right, Right Ureteroscopy(Right) - Tony Ennis MD Surgeon Tony Ennis MD Waste Cotton Cleaner None Estimated Blood Loss 0 Findings See Below Right retrograde pyelogram showed mild hydronephrosis. Unable to reach stone with semirigid ureteroscope. Opted to place a stent and return for second procedure. Stent in appropriate position. Specimens Specimen Description: none Drains Other (6 Samoan by 24 cm right ureteral stent) Anesthesia Type General Complications none
--- NOTE | 2022-08-26 17:20 | Operative Report ---
PG Post Operative Report Pre & Post Diagnosis Operation Date: 08/26/22 16:00 Pre-Op Diagnosis: Right Kidney stone Post-Op Diagnosis: Right Kidney stone I identified the patient and participated in the time-out.: Yes Procedure Operation Date: 08/26/22 16:00 Actual Procedures p Cystoscopy, Right Retrograde Pyelogram with radiographic interpretation (Not Applicable) - Tony Ennis MD s Ureteral Stent Insertion Right, Right Ureteroscopy(Right) - Tony Ennis MD Surgeon Tony Ennis MD Scrap Iron Loader None Estimated Blood Loss 0 Findings See Below Normal bladder. Right retrograde pyelogram showed mild hydronephrosis. Unable to reach stone in distal ureter with semirigid scope. Stent in appropriate position. Specimens None Drains 6 Yemeni by 24 cm right ureteral stent Anesthesia Type General Complications none Description of Procedure After informed consent was obtained, the patient was transported operative suite. General anesthesia was induced. The patient was placed in dorsolithotomy position prepped and draped in a sterile fashion. They received preoperative ciprofloxacin and Flagyl for antibiotic prophylaxis. An appropriate surgical timeout was performed. A 22 Yemeni rigid scope was inserted per urethra into the bladder. Sanchez cystoscopy revealed no stones or lesions. I turned my attention the right ureteral orifice and intubated this with a 5 Yemeni open-ended catheter. I advanced a Super Stiff wire and confirmed this in the upper pole of the kidney fluoroscopically. 5 Yemeni open-ended catheter was removed. Advanced a semirigid ureteroscope into the bladder and alongside the wire. I was able to get in the distal ureter but there was an area of narrowing just distal to her stone that precluded me from reaching with the scope. I opted to place a stent in for a second procedure. Semirigid ureteroscope was removed. Advance a 5 Yemeni open-ended catheter over the Super Stiff wire and remove the wire. A right retrograde pyelogram was shot which showed mild hydronephrosis. Super Stiff wire was replaced and 5 Yemeni open-ended catheter was removed. A 6 Yemeni by 24 cm right ureteral stent was deployed with a good proximal coil in the renal pelvis and a good distal coil noted in the bladder, confirmed fluoroscopically and under direct visualization, respectively. There was not much curl on the distal aspect so I inserted a grasper and pulled this out slightly and confirmed fluoroscopically that the proximal coil was still in the renal pelvis, which it was. The bladder was emptied and the scope was removed. This concluded the end of the case. All counts were correct at the end of the case. I was present, scrubbed, and actively participated for the entirety of the procedure. I attest to the content of the Intraoperative Record and any orders documented therein. Any exceptions are noted below.
[2022-08-26] MEDS ORDERED: LABETALOL HCL IV 5 MG/ML 20ML IV PRN (17:35)
[2022-08-26] MEDS ORDERED: ATROPINE SULFATE 0.1 MG/ML 10ML SYR IV PRN (17:35)
[2022-08-26] MEDS ORDERED: NALOXONE HCL 0.4 MG/1 ML VIAL/CARP IV PRN (17:35)
[2022-08-26] MEDS ORDERED: fentaNYL citrate 100 MCG/2 ML VIAL IV PRN (17:35)
[2022-08-26] MEDS ORDERED: ePHEDrine sulfate 50 MG/ML AMP IV PRN (17:35)
[2022-08-26] MEDS ORDERED: PROMETHAZINE HCL 12.5 MG in SODIUM CHLORIDE 0.9% 50 ML IV PRN (17:35)
--- NOTE | 2022-08-26 18:02 | Fluoroscopy Report ---
INTRAOPERATIVE RADIOGRAPHS CLINICAL HISTORY: Right ureteral stent placement. Fluoroscopy time: 15 seconds. FINDINGS: 2 spot fluoroscopic views of the right abdomen are correlated with abdominal CT dated 2022. The initial image shows a wire within the right ureter. Contrast opacification shows mild dilat ation of the ureter. The second image shows the proximal end of a right ureteral stent projecting ove r the right renal pelvis. IMPRESSION: Intraoperative images from a right ureteral stent placement procedure as above. Electronically signed by: Raj Hernandez M.D. 08/26/2022 6:00 PM
--- NOTE | 2022-08-26 18:16 | Anesthesiology Progress Note ---
Date of Service August 26, 2022 Anesthesia Post Procedure Vital Signs Vital Signs: Temp Pulse Pulse Pulse Resp BP BP 08/26/22 18:05 36.2 C L 71 18 117/66 08/26/22 17:55 36.2 C L 72 18 119/66 08/26/22 17:45 71 18 119/68 08/26/22 17:35 73 17 117/70 08/26/22 17:29 36.1 C L 66 17 130/67 08/26/22 15:37 36.6 C 67 16 08/26/22 13:31 36.8 C 64 16 08/26/22 09:18 60 08/26/22 07:43 36.6 C 57 L 16 08/26/22 01:30 36.7 C 63 16 08/26/22 01:50 36.7 C 63 16 08/26/22 01:00 62 20 104/72 08/26/22 00:50 57 L 20 08/26/22 00:40 60 21 08/26/22 00:30 59 L 20 08/26/22 00:20 61 20 08/26/22 00:10 60 23 08/26/22 00:00 59 L 22 08/25/22 23:50 59 L 20 08/25/22 23:40 60 24 08/25/22 23:30 62 24 08/25/22 23:20 64 20 08/25/22 23:10 75 24 08/25/22 23:00 66 22 08/25/22 23:00 168/64 H 08/25/22 22:58 134/90 08/25/22 22:58 61 21 08/25/22 22:50 64 08/25/22 22:40 67 23 08/25/22 22:30 67 20 08/25/22 22:20 62 08/25/22 22:10 60 24 08/25/22 22:00 65 23 08/25/22 22:00 139/73 08/25/22 21:50 59 L 20 08/25/22 21:40 60 19 08/25/22 21:30 61 23 08/25/22 21:20 60 20 08/25/22 21:10 61 20 08/25/22 21:00 73 22 08/25/22 21:00 136/104 H 08/25/22 20:51 69 22 08/25/22 20:51 184/74 H 08/25/22 20:50 88 19 08/25/22 20:40 19 08/25/22 20:30 08/25/22 20:20 08/25/22 20:10 21 08/25/22 20:10 178/74 H 08/25/22 19:40 61 24 08/25/22 19:30 64 22 08/25/22 19:20 67 21 08/25/22 19:10 73 20 08/25/22 19:00 70 24 08/25/22 18:50 71 20 08/25/22 18:40 65 24 08/25/22 18:30 66 24 08/25/22 18:24 68 24 08/25/22 19:41 59 L 20 BP Pulse Ox O2 Del Method O2 Flow Rate 08/26/22 18:05 94 Oxymask 5 08/26/22 17:55 94 Oxymask 5 08/26/22 17:45 92 Oxymask 8 08/26/22 17:35 92 Oxymask 8 08/26/22 17:29 91 Oxymask 8 08/26/22 15:37 124/72 91 Room Air 08/26/22 13:31 155/79 H 93 Room Air 08/26/22 09:18 160/78 H 08/26/22 07:43 124/69 93 Room Air 08/26/22 01:30 155/70 H 94 Room Air 08/26/22 01:50 155/70 H 94 Room Air 08/26/22 01:00 93 Room Air 08/26/22 00:50 08/26/22 00:40 08/26/22 00:30 08/26/22 00:20 08/26/22 00:10 08/26/22 00:00 08/25/22 23:50 08/25/22 23:40 08/25/22 23:30 08/25/22 23:20 08/25/22 23:10 08/25/22 23:00 08/25/22 23:00 08/25/22 22:58 08/25/22 22:58 08/25/22 22:50 94 08/25/22 22:40 95 08/25/22 22:30 08/25/22 22:20 94 08/25/22 22:10 93 01/14/23 22:00 93 08/25/22 22:00 08/25/22 21:50 92 08/25/22 21:40 91 08/25/22 21:30 93 08/25/22 21:20 92 08/25/22 21:10 92 08/25/22 21:00 93 08/25/22 21:00 08/25/22 20:51 96 08/25/22 20:51 08/25/22 20:50 97 08/25/22 20:40 95 08/25/22 20:30 94 08/25/22 20:20 94 08/25/22 20:10 94 08/25/22 20:10 08/25/22 19:40 95 08/25/22 19:30 95 08/25/22 19:20 96 08/25/22 19:10 96 08/25/22 19:00 91 08/25/22 18:50 96 08/25/22 18:40 95 08/25/22 18:30 95 08/25/22 18:24 95 08/25/22 19:41 95 Room Air Pain Intensity Left Lower Back: Pain Intensity: 10 Transfer of Care Handoff Completed per policy Notes Mental Status: alert / awake / arousable Patient Amnestic to Procedure: Yes Nausea / Vomiting: adequately controlled Pain: adequately controlled Airway Patency, RR, SpO2: stable & adequate BP & HR: stable & adequate Hydration State: stable & adequate Anesthetic Complications: no major complications apparent
[2022-08-26] MEDS: RALOXIFENE HCL 60 MG TAB PO SCH (20:22)
--- NOTE | 2022-08-26 22:32 | Electrocardiogram Report ---
Test Reason : Blood Pressure : / mmHG Vent. Rate : 066 BPM Atrial Rate : 066 BPM P-R Int : 148 ms QRS Dur : 082 ms QT Int : 430 ms P-R-T Axes : 006 023 157 degrees QTc Int : 450 ms Poor data quality, interpretation may be adversely affected Normal sinus rhythm Nonspecific T wave abnormality Abnormal ECG When compared with ECG of 24-FEB-2019 11:43, Premature ventricular complexes are no longer Present Confirmed by Thanh Fowler ([id number]) on 08/26/2022 10:31:34 PM Referred By: REFERRED SELF Confirmed By:Thanh Fowler
[2022-08-27] MEDS: LEVOTHYROXINE SODIUM 25 MCG TABLET PO SCH (05:39)
[2022-08-27] MEDS: metroNIDAZOLE 500 MG/100 ML BAG IV SCH ×3 (05:39→22:29)
[2022-08-27 07:32] LABS: Hematocrit (blood only) 32.2 % (34.1-44.9); Hemoglobin 10.9 g/dl (12.0-16.0); Mean Corpuscular Hemoglobin 30.7 pg (25.0-34.0); Mean Corpuscular Hgb Conc 33.9 g/dL (32.0-36.0); Mean Corpuscular Volume 90.7 fL (80.0-100.0); Mean Platelet Volume 10.5 fL (9.4-12.3); Platelet Count 209 K/uL (130-400); RDW Coefficient of Variation 13.2 % (11.5-14.5); RDW Standard Deviation 44.2 fL (36.4-46.3); Red Blood Count 3.55 M/uL (3.93-5.22); White Blood Count 7.63 K/ul (4.8-10.8)
[2022-08-27] MEDS: VERAPAMIL HCL 180 MG TABCR PO SCH (07:49)
[2022-08-27] MEDS: FAMOTIDINE 20 MG in SYRINGE 3 ML IV SCH (07:50)
[2022-08-27 07:53] LABS: BUN Creatinine Ratio 17.8 (10-20); Calcium 8.6 mg/dl (8.5-10.1); Creatinine Clr Calc Pharmacy 54.9 ml/min; Est GFR (African American) 90.8 ml/min; Est GFR (Non-African American) 78.3 ml/min; Potassium 3.5 mmol/L (3.5-5.1)
--- NOTE | 2022-08-27 08:42 | Urology Progress Note ---
Date of Service August 27, 2022 Assessment & Plan (1) Right nephrolithiasis: Plan: - Pt POD#1 s/p cystoscopy, retrograde pyelogram and right stent placement. - Doing well, progressing as expected. - Afebrile, lab work reviewed - creatinine 0.73, WBC 7.63. - Tolerating right ureteral stent with minimal bother. - Okay to d/c from perspective when medically stable; pt also being treated/monitored for acute diverticulitis. - Recommend d/c with course of PO antibiotics, Tamsulosin, prn Pyridium and prn Oxybutynin for stent management. - Expected clinical course reviewed, all questions answered. - Will arrange outpatient follow-up with our service to discuss definitive stone management. - will sign off. Admission and Anticipated Discharge Date Admission Date: August 25, 2022 Subjective Patient awake and sitting up in bed. No acute issues overnight. No flank pain. Voiding spontaneously. Notes hematuria post procedure, no dysuria. No fever or chills. No nausea or vomiting. Review of Systems Constitutional: as per Subjective / HPI Gastrointestinal: as per Subjective / HPI Genitourinary: as per Subjective / HPI Physical Exam Constitutional: well developed and well nourished; no acute distress Respiratory: no respiratory distress and no labored breathing Gastrointestinal (Abdomen): Inspection/Auscultation: abdomen normal to inspection; abdomen not distended Neurologic: moves all extremities and awake Psychiatric: Orientation: alert and oriented x 3 Results & Data ([facility]) Vital Signs (Past 12 Hours) Vital Signs Temp Pulse Pulse Resp BP BP Pulse Ox 08/27/22 07:45 37.0 C 65 20 138/76 96 08/27/22 03:23 36.6 C 72 18 131/68 95 08/26/22 22:49 37 C 66 18 125/68 94 O2 Del Method O2 Flow Rate 08/27/22 07:45 Nasal Cannula 4 08/27/22 03:23 Nasal Cannula 4 08/26/22 22:49 Nasal Cannula 4 PG Care Time/CCT Total # of Minutes Spent Total Time Spent with Patient: Total time spent is greater than 50% in coordination of care (as documented) at patient's floor/unit and/or counseling patient: Coding Level of Care Code 04160 SUB INP/OBS CARE 09/05MIN Diagnoses Right nephrolithiasis N20.0
[2022-08-27] MEDS: CIPROFLOXACIN / D5W 400 MG/200 ML BAG IV SCH ×2 (11:28→22:34)
--- NOTE | 2022-08-27 14:58 | Hospitalist Progress Note ---
Date of Service August 27, 2022 Assessment & Plan (1) Right nephrolithiasis: Plan: 77yo female presented with flank pain since afternoon 08/24, CTAP w/ Minimal fat stranding about the diverticula in the sigmoid colon may represent very mild diverticulitis without abscess or perforation. NO abdominal pain on exam, but persistent nausea/vomiting UA with RBCs Renal US ordered for further eval as no reported stone on initial imaging, however does have evidence for 6mm obstructing calculus in distal R ureter above UVJ w/ mild R hydroureteronephrosis. Additional punctate nonobstructing calculi in the right lower pole. Now s/o right ureteral stent placement with Urology on 08/26 Having some ongoing nausea, no vomiting Urine cx mixed mishel -Strain urine, bladder scan as needed-continue -continue Cipro/Flagyl for UTI and diverticulitis -Pain control/antiemetics prn , will avoid oxycodone given underlying cognitive impairment -Urology recommends adding on Flomax, Oxybutynin prn -f/u with Urology for stone and stent management as outpt-they will arrange in 1-2 weeks (2) Acute diverticulitis: Plan: 77yo female with history presenting with acute uncomplicated diverticulitis. Not really symptomatic with this Continues on Cipro/Flagyl and will finish out a 10-day course WBC wnl, afebrile no further IVFs advance diet to regular today f/u with GI for colonoscopy in 6 weeks (3) Hypokalemia: Plan: Low on admit, 2.7 replaced and resolved (4) Hypothyroidism: Plan: Chronic, hx subclinical hypothyroidism, weight loss Continue Synthroid 25mcg daily TSH normal here at 3.2 (5) Mild cognitive impairment: Plan: Patient oriented to self and hospital (with prompting). Functional and independent at home Delirium prevention strategies with frequent orientation Answering questions appropriately, forgetful but easily reoriented TSH normal Of note, she had been on lexapro in the past for anxiety/depression but wanted to stop this in December 2021, had concerns about memory/withdrawn behavior in July 2022 in follow up ?if underlying depression contributing to such Follow-up with PCP (6) Anemia: Plan: Mild, likely hemodilution from previous IV fluids Normocytic Follow as an outpatient (7) Hypertension: Plan: Chronic. Blood pressure adequately controlled Continue Verapamil 360mg po daily DVT prophylaxis : SCDs Disposition-discharge home tomorrow if tolerating diet. Discussed care with on phone on 08/27 Admission and Anticipated Discharge Date Admission Date: August 25, 2022 Subjective Pt denies pain. Still having some nausea, hasn't eaten much yet today. Mildly confused but reports this is her baseline. Review of Systems Review of Systems: All systems reviewed & are unremarkable except as noted in HPI & below Physical Exam Constitutional: WD/WN, vitals as above Neck: trachea midline, no thyromegaly Respiratory: normal respiratory effort, lungs clear to auscultation Cardiovascular: RRR, no murmur, no edema Chest (Breasts): Chest: normal inspection of chest Gastrointestinal (Abdomen): normal bowel sounds, soft, nontender, no hepatosplenomegaly Musculoskeletal: Extremities: extremities normal to inspection; no cyanosis and no clubbing Skin: no rashes, warm and dry Neurologic: moves all extremities and awake; no focal motor deficits Psychiatric: Orientation: alert, oriented to person and cooperative Lymphatic: no lymphedema Results & Data Results & Data ([facility]) Vital Signs (Past 12 Hours) Vital Signs Temp Pulse Pulse Resp BP BP Pulse Ox 08/27/22 14:30 36.8 C 71 18 134/76 94 08/27/22 11:33 36.4 C L 66 18 120/68 92 08/27/22 07:30 08/27/22 07:45 37.0 C 65 20 138/76 96 08/27/22 03:23 36.6 C 72 18 131/68 95 O2 Del Method O2 Flow Rate 08/27/22 14:30 Room Air 08/27/22 11:33 Room Air 08/27/22 07:30 Nasal Cannula 4 08/27/22 07:45 Nasal Cannula 4 08/27/22 03:23 Nasal Cannula 4 Laboratory Results labs reviewed PG Care Time/CCT Total # of Minutes Spent Total Time Spent with Patient: Total time spent is greater than 50% in coordination of care (as documented) at patient's floor/unit and/or counseling patient: Coding Level of Care Code 96244 SUB INP/OBS CARE 2/35MIN Diagnoses Right nephrolithiasis N20.0 Acute diverticulitis K57.92 Hypokalemia E87.6 Hypothyroidism E03.9 Mild cognitive impairment G31.84 Anemia D64.9 Hypertension I10
[2022-08-27] MEDS: RALOXIFENE HCL 60 MG TAB PO SCH (19:58)
[2022-08-28] MEDS: LEVOTHYROXINE SODIUM 25 MCG TABLET PO SCH (06:17)
[2022-08-28] MEDS: metroNIDAZOLE 500 MG/100 ML BAG IV SCH ×3 (06:18→22:00)
[2022-08-28] MEDS ORDERED: OXYBUTYNIN CHLORIDE 5 MG TAB PO PRN (08:58)
[2022-08-28] MEDS: CIPROFLOXACIN / D5W 400 MG/200 ML BAG IV SCH (09:27)
[2022-08-28] MEDS: VERAPAMIL HCL 180 MG TABCR PO SCH (09:27)
[2022-08-28] MEDS: FAMOTIDINE 20 MG in SYRINGE 3 ML IV SCH (09:31)
[2022-08-28] MEDS: TAMSULOSIN HCL 0.4 MG CAP PO SCH (10:18)
--- NOTE | 2022-08-28 11:22 | Hospitalist Progress Note ---
Date of Service August 28, 2022 Assessment & Plan (1) Right nephrolithiasis: Plan: s/p right ureteral stent placement with Urology on 08/26/22 Cont flomax daily Cont oxybutinin prn At this point we are 2 days out from her stent placement I don't believe her ongoing nausea and poor PO intake is stent or stone-related Due to diverticulitis? Cipro can cause nausea - will stop Change to rocephin - this will cover the urine AND the bowel (possible sigmoid diverticulitis) Flagyl can cause nausea but IV is typically better than oral flagyl Check KUB - r/o ileus, constipation, etc Cont IV pepcid Repeat u/a and urine culture f/u with Urology for stone and stent management as outpatient within 1-2 weeks after discharge (2) Acute diverticulitis: Plan: sigmoid as seen on admission CT currently on cipro/flagyl change cipro to rocephin cont flagyl consider repeat imaging of abdomen/pelvis with contrast if she fails to improve (ongoing nausea, ongoing anorexia, etc) (3) Hypokalemia: Plan: Low on admit, 2.7 Still low today -- cont to replace Repeat level am (4) Hypothyroidism: Plan: Continue Synthroid 25mcg daily TSH normal here at 3.2 (5) Mild cognitive impairment: Plan: chronic (6) Anemia: Plan: H/H stable today (7) Hypertension: Plan: BPs controlled Cont Verapamil 360mg po daily Plan DVT proph - if she stays beyond tomorrow then add chemical DVT proph daughter extensively updated by phone this evening Admission and Anticipated Discharge Date Admission Date: August 25, 2022 Subjective PO intake - both solids/liquids - remains poor no bowel movement since admission continues with some nausea no abd pain no dysuria - she had such yesterday - now resolved Review of Systems Review of Systems: gen - no fevers/ chills cv - no chest pain pulm - no dyspnea GI - no vomiting Physical Exam Physical Exam: gen - NAD, lying comfortably in bed mouth - MM dry neck - no JVD heart - RRR, s1 s2 lungs - CTA b/l abd - soft NT ND BS+; no flank pain to palpation ext - no edema, pulses 2+ b/l Results & Data Results & Data ([facility]) Vital Signs (Past 12 Hours) Vital Signs Temp Pulse Resp BP BP Pulse Ox O2 Del Method 08/28/22 09:25 Room Air 08/28/22 07:55 36.7 C 63 18 126/69 92 Room Air 08/27/22 23:33 36.9 C 62 18 151/78 H 95 Room Air Laboratory Results Laboratory Results - last 48 hr 08/28/22 08/28/22 08/28/22 11:43 11:43 12:32 WBC 5.00 RBC 4.13 Hgb 12.5 Hct 37.1 MCV 89.8 MCH 30.3 MCHC 33.7 RDW Std Deviation 43.8 RDW Coeff of Yoselin 13.3 Plt Count 227 MPV 10.3 Immature Gran % (Auto) 0.4 Neut % (Auto) 72.2 Lymph % (Auto) 17.6 [place] % (Auto) 8.2 Eos % (Auto) 1.0 Baso % (Auto) 0.6 Neut # (Auto) 3.61 Lymph # (Auto) 0.88 L [place] # (Auto) 0.41 Eos # (Auto) 0.05 Baso # (Auto) 0.03 Immature Gran # (Auto) 0.02 Sodium 139 Potassium 3.2 L Chloride 108 H Carbon Dioxide 26 Anion Gap 5 BUN 14 Creatinine 0.75 Est Cr Clr Drug Dosing 53.4 Est GFR ( Amer) 87.9 Est GFR (Non-Af Amer) 75.8 BUN/Creatinine Ratio 18.7 Glucose 104 H Calcium 8.7 Magnesium 1.8 Urine Color [place] Urine Appearance Clear Urine pH 5.5 Ur Specific [place] 1.014 Urine Protein 2+ H Urine Glucose (UA) Negative Urine Ketones Trace H Urine Blood 3+ H Urine Nitrite Negative Urine Bilirubin Negative Urine Urobilinogen Negative Ur Leukocyte Esterase Trace H Urine WBC (Auto) 10-30 H Urine RBC (Auto) >30 H U Hyaline Cast (Auto) 1-5 U Epithel Cells (Auto) 20-30 H Urine Bacteria (Auto) Negative PG Care Time/CCT Total # of Minutes Spent Total Time Spent with Patient: Total time spent is greater than 50% in coordination of care (as documented) at patient's floor/unit and/or counseling patient: Coding Level of Care Code 32060 SUB INP/OBS CARE 2/35MIN Diagnoses Right nephrolithiasis N20.0 Acute diverticulitis K57.92 Hypokalemia E87.6 Hypothyroidism E03.9 Mild cognitive impairment G31.84 Anemia D64.9 Hypertension I10
[2022-08-28 12:12] LABS: Basophils # (auto) 0.03 K/uL (0-0.2); Basophils % (auto) 0.6 %; Eosinophils # (auto) 0.05 K/uL (0-0.50); Hematocrit (blood only) 37.1 % (34.1-44.9); Hemoglobin 12.5 g/dl (12.0-16.0); Immature Granulocytes # (auto) 0.02 K/uL (0.00-0.02); Immature Granulocytes % (auto) 0.4 %; Lymphocytes # (auto) 0.88 K/uL (1.2-3.4); Lymphocytes % (auto) 17.6 %; Mean Corpuscular Hemoglobin 30.3 pg (25.0-34.0); Mean Corpuscular Hgb Conc 33.7 g/dL (32.0-36.0); Mean Corpuscular Volume 89.8 fL (80.0-100.0); Mean Platelet Volume 10.3 fL (9.4-12.3); Monocytes # (auto) 0.41 K/uL (0.24-0.82); Monocytes % (auto) 8.2 %; Neutrophils # (auto) 3.61 K/uL (1.4-6.5); Neutrophils % (auto) 72.2 %; Platelet Count 227 K/uL (130-400); RDW Coefficient of Variation 13.3 % (11.5-14.5); RDW Standard Deviation 43.8 fL (36.4-46.3); Red Blood Count 4.13 M/uL (3.93-5.22)
[2022-08-28 12:40] LABS: BUN Creatinine Ratio 18.7 (10-20); Calcium 8.7 mg/dl (8.5-10.1); Creatinine Clr Calc Pharmacy 53.4 ml/min; Est GFR (African American) 87.9 ml/min; Est GFR (Non-African American) 75.8 ml/min; Magnesium 1.8 mg/dl (1.7-2.4); Potassium 3.2 mmol/L (3.5-5.1)
[2022-08-28 12:53] LABS: Appearance Urine Clear (Clear); Bacteria Urine Automated Negative (Negative); Bilirubin Urine Negative (Negative); Blood Urine 3+ (Negative); Color Urine Orange; Epithelial Cell Urine Auto 20-30 /lpf (0-5); Glucose Urine UA Negative (Negative); Ketones Urine Trace (Negative); Leukocyte Esterase Urine Trace (Negative); Nitrite Urine Negative (Negative); Protein Urine 2+ (Negative); RBC Urine Automated >30 /hpf (0-4); Specific Gravity Urine 1.014 (1.000-1.030); Urobilinogen Urine Negative (Negative); pH Urine 5.5 (4.5-7.5)
[2022-08-28] MEDS: cefTRIAXone SODIUM 1,000 MG in DEXTROSE 5% AD-VAN 50 ML IV SCH (14:42)
[2022-08-28] MEDS ORDERED: POLYETHYLENE (MIRALAX) 17 GM PACK PO SCH (16:35)
[2022-08-28] MEDS: D5NSS + 20MEQ KCL 20 MEQ/1,000 ML BAG IV SCH (17:14)
[2022-08-28] MEDS: RALOXIFENE HCL 60 MG TAB PO SCH (20:17)
[2022-08-28] MEDS: POTASSIUM CHLORIDE CRTAB 20 MEQ TABCR PO SCH (20:17)
--- NOTE | 2022-08-28 20:48 | XRay Report ---
KUB HISTORY: constipation, recent stent placement COMPARISON: KUB 08/26/2022. FINDINGS: The bowel gas pattern is unremarkable. There are no dilated loops of small bowel to suggest an obstruction. A right ureteral stent appears in good position. There are multiple punctate right renal calculi. There is a 6 mm stone again noted within the distal right ureter. No left ureteral tyler culi. Small amount of well-formed stool seen within the colon. No pneumoperitoneum or pneumatosis. IMPRESSION: 1. No change in the 6 mm distal right ureteral stone. 2. A right ureteral stent appears in good position. ACT 112: Negative or not required by law. Electronically signed by: Deniz Greer M.D. 08/28/2022 8:47 PM
[2022-08-29] MEDS: LEVOTHYROXINE SODIUM 25 MCG TABLET PO SCH (06:14)
[2022-08-29] MEDS: D5NSS + 20MEQ KCL 20 MEQ/1,000 ML BAG IV SCH (06:14)
[2022-08-29] MEDS: metroNIDAZOLE 500 MG/100 ML BAG IV SCH ×3 (06:14→21:13)
[2022-08-29 07:27] LABS: Basophils # (auto) 0.04 K/uL (0-0.2); Basophils % (auto) 0.9 %; Eosinophils # (auto) 0.06 K/uL (0-0.50); Eosinophils % (auto) 1.3 %; Hemoglobin 11.8 g/dl (12.0-16.0); Immature Granulocytes # (auto) 0.02 K/uL (0.00-0.02); Immature Granulocytes % (auto) 0.4 %; Lymphocytes % (auto) 19.3 %; Mean Corpuscular Hemoglobin 30.5 pg (25.0-34.0); Mean Corpuscular Hgb Conc 33.7 g/dL (32.0-36.0); Mean Corpuscular Volume 90.4 fL (80.0-100.0); Mean Platelet Volume 9.8 fL (9.4-12.3); Monocytes % (auto) 12.8 %; Neutrophils # (auto) 3.05 K/uL (1.4-6.5); Neutrophils % (auto) 65.3 %; Platelet Count 227 K/uL (130-400); RDW Coefficient of Variation 13.2 % (11.5-14.5); RDW Standard Deviation 43.8 fL (36.4-46.3); Red Blood Count 3.87 M/uL (3.93-5.22); White Blood Count 4.67 K/ul (4.8-10.8)
[2022-08-29 08:09] LABS: Potassium 3.7 mmol/L (3.5-5.1)
[2022-08-29 08:14] LABS: BUN Creatinine Ratio 16.7 (10-20); Creatinine Clr Calc Pharmacy 55.6 ml/min; Est GFR (African American) 92.3 ml/min; Est GFR (Non-African American) 79.7 ml/min
[2022-08-29] MEDS: FAMOTIDINE 20 MG in SYRINGE 3 ML IV SCH (08:30)
[2022-08-29] MEDS: POTASSIUM CHLORIDE CRTAB 20 MEQ TABCR PO SCH ×2 (08:30→21:15)
[2022-08-29] MEDS: POLYETHYLENE (MIRALAX) 17 GM PACK PO SCH (08:30)
[2022-08-29] MEDS: TAMSULOSIN HCL 0.4 MG CAP PO SCH (08:31)
[2022-08-29] MEDS: VERAPAMIL HCL 180 MG TABCR PO SCH (08:31)
--- NOTE | 2022-08-29 13:51 | Hospitalist Progress Note ---
Date of Service August 29, 2022 Assessment & Plan (1) Right nephrolithiasis: Plan: s/p right ureteral stent placement with Urology on 08/26/22 Cont flomax daily Cont oxybutinin prn Repeat urine culture pending but thus far negative f/u with Urology for stone and stent management as outpatient within 1-2 weeks after discharge (2) Acute diverticulitis: Plan: sigmoid as seen on admission CT previously on cipro/flagyl now combo of rocephin/flagyl appetite, nausea, GI symptoms all improved moving bowels advance diet to full liquids today then low fiber tomorrow can stop IV fluids (3) Hypokalemia: Plan: Low on admit, 2.7 replaced last few days now resolved (4) Hypothyroidism: Plan: Continue Synthroid 25mcg daily TSH normal here at 3.2 (5) Mild cognitive impairment: Plan: chronic per daughter (6) Anemia: Plan: H/H stable again today with hb 11.8 (7) Hypertension: Plan: BPs controlled Cont Verapamil 360mg po daily (8) Anxiety: Plan: add buspar 5mg BID re-eval tomorrow for effectiveness previously on lexapro per records but patient self-discontinued it Plan DVT proph - heparin 5000 BID daughter extensively updated at bedside today needs repeat PT/OT evals - since last eval she has gotten a bit weaker due to being in bed significantly (other than ambulating to ) dispo - Home with HH? SNF ? Admission and Anticipated Discharge Date Admission Date: August 28, 2022 Subjective appetite much improved today tolerating the clear liquid tray without nausea/vomiting/abd pain had a bowel movement last pm and again today is in better spirits, and daughter - who was at bedside during my visit - feels that her mom overall looks better today patient still very anxious which is a chronic issue for her patient wants to walk, get out of bed to chair, etc Review of Systems Review of Systems: gen - no fevers, better energy, better appetite cv - no chest pain pulm - no dyspnea GI - no diarrhea, no vomiting Physical Exam Physical Exam: gen - NAD, lying comfortably in bed, looks good today mouth - MMM neck - no JVD heart - RRR, s1 s2, no murmur lungs - CTA b/l abd - soft NT ND BS+; no flank pain to palpation ext - no edema, pulses 2+ b/l psych - mild pleasant confusion; looks at daughter consistently for answers to questions Results & Data Results & Data ([facility]) Vital Signs (Past 12 Hours) Vital Signs Temp Pulse Resp BP Pulse Ox O2 Del Method 08/29/22 10:49 Room Air 08/29/22 08:07 92 Room Air 08/29/22 07:25 36.6 C 75 18 158/84 H 91 Room Air Laboratory Results Laboratory Results - last 24 hr 08/29/22 08/29/22 07:05 07:05 WBC 4.67 L RBC 3.87 L Hgb 11.8 L Hct 35.0 MCV 90.4 MCH 30.5 MCHC 33.7 RDW Std Deviation 43.8 RDW Coeff of Yoselin 13.2 Plt Count 227 MPV 9.8 Immature Gran % (Auto) 0.4 Neut % (Auto) 65.3 Lymph % (Auto) 19.3 [place] % (Auto) 12.8 Eos % (Auto) 1.3 Baso % (Auto) 0.9 Neut # (Auto) 3.05 Lymph # (Auto) 0.90 L [place] # (Auto) 0.60 Eos # (Auto) 0.06 Baso # (Auto) 0.04 Immature Gran # (Auto) 0.02 Sodium 143 Potassium 3.7 Chloride 110 H Carbon Dioxide 25 Anion Gap 8 BUN 12 Creatinine 0.72 Est Cr Clr Drug Dosing 55.6 Est GFR ( Amer) 92.3 Est GFR (Non-Af Amer) 79.7 BUN/Creatinine Ratio 16.7 Glucose 118 H Calcium 8.0 L PG Care Time/CCT Total # of Minutes Spent Total Time Spent with Patient: Total time spent is greater than 50% in coordination of care (as documented) at patient's floor/unit and/or counseling patient: Coding Level of Care Code 28141 SUB INP/OBS CARE 2/35MIN Diagnoses Right nephrolithiasis N20.0 Acute diverticulitis K57.92 Hypokalemia E87.6 Hypothyroidism E03.9 Mild cognitive impairment G31.84 Anemia D64.9 Hypertension I10 Anxiety F41.9
[2022-08-29] MEDS: cefTRIAXone SODIUM 1,000 MG in DEXTROSE 5% AD-VAN 50 ML IV SCH (14:05)
[2022-08-29] MEDS: busPIRone 5 MG TAB PO SCH ×2 (15:12→21:15)
[2022-08-29] MEDS: HEPARIN SOD 5,000 UNIT/0.5 ML VIAL SQ SCH ×2 (15:12→21:16)
[2022-08-29] MEDS: RALOXIFENE HCL 60 MG TAB PO SCH (21:14)
[2022-08-30 06:07] LABS: Basophils # (auto) 0.03 K/uL (0-0.2); Basophils % (auto) 0.6 %; Eosinophils # (auto) 0.07 K/uL (0-0.50); Eosinophils % (auto) 1.5 %; Hematocrit (blood only) 31.5 % (34.1-44.9); Hemoglobin 10.9 g/dl (12.0-16.0); Immature Granulocytes # (auto) 0.02 K/uL (0.00-0.02); Immature Granulocytes % (auto) 0.4 %; Lymphocytes # (auto) 1.07 K/uL (1.2-3.4); Lymphocytes % (auto) 23.1 %; Mean Corpuscular Hemoglobin 31.1 pg (25.0-34.0); Mean Corpuscular Hgb Conc 34.6 g/dL (32.0-36.0); Mean Platelet Volume 10.4 fL (9.4-12.3); Monocytes # (auto) 0.51 K/uL (0.24-0.82); Neutrophils # (auto) 2.94 K/uL (1.4-6.5); Neutrophils % (auto) 63.4 %; Platelet Count 214 K/uL (130-400); RDW Coefficient of Variation 13.4 % (11.5-14.5); RDW Standard Deviation 44.7 fL (36.4-46.3); White Blood Count 4.64 K/ul (4.8-10.8)
[2022-08-30] MEDS: metroNIDAZOLE 500 MG/100 ML BAG IV SCH ×3 (06:20→21:00)
[2022-08-30] MEDS: LEVOTHYROXINE SODIUM 25 MCG TABLET PO SCH (06:20)
[2022-08-30 06:35] LABS: Calcium 8.1 mg/dl (8.5-10.1); Potassium 3.7 mmol/L (3.5-5.1)
[2022-08-30 06:40] LABS: BUN Creatinine Ratio 13.2 (10-20); Creatinine Clr Calc Pharmacy 58.9 ml/min; Est GFR (African American) 96.4 ml/min; Est GFR (Non-African American) 83.2 ml/min
[2022-08-30] MEDS: TAMSULOSIN HCL 0.4 MG CAP PO SCH (08:01)
[2022-08-30] MEDS: POLYETHYLENE (MIRALAX) 17 GM PACK PO SCH (08:01)
[2022-08-30] MEDS: VERAPAMIL HCL 180 MG TABCR PO SCH (08:01)
[2022-08-30] MEDS: busPIRone 5 MG TAB PO SCH ×2 (08:01→20:51)
[2022-08-30] MEDS: HEPARIN SOD 5,000 UNIT/0.5 ML VIAL SQ SCH ×2 (08:01→20:51)
[2022-08-30] MEDS: POTASSIUM CHLORIDE CRTAB 20 MEQ TABCR PO SCH ×2 (08:01→20:51)
[2022-08-30] MEDS: FAMOTIDINE 20 MG in SYRINGE 3 ML IV SCH (08:37)
[2022-08-30] MEDS: cefTRIAXone SODIUM 1,000 MG in DEXTROSE 5% AD-VAN 50 ML IV SCH (15:34)
[2022-08-30] MEDS ORDERED: OPTIRAY 350 100ml IV ONE (16:21)
--- NOTE | 2022-08-30 16:49 | CT Scan Report ---
ABDOMEN AND PELVIS CT WITH IV CONTRAST CT DOSE: 428.26 mGy.cm HISTORY: Left lower quadrant pain; ?ongoing diverticulitis, abscess? other? TECHNIQUE: Multiaxial CT images of the abdomen and pelvis were performed following the use of intrave nous contrast. A dose lowering technique was utilized adhering to the principles of ALARA. COMPARISON STUDY: Abdomen and pelvis CT 08/25/2022. FINDINGS: Small bilateral pleural effusions have slightly increased in size. Consolidation within the bilateral lower lobe posteriorly favors compressive atelectasis from the pleural effusions. No pneum operitoneum. No pneumatosis. No acute fractures identified. There is a small hiatus hernia. Prior cho lecystectomy. Mild body wall edema. Mild central intrahepatic bile duct dilatation remains unchanged. The main portal vein is patent. Mild hepatic steatosis. The spleen and adrenal glands unremarkable. There is again noted a 2.6 cm cystic lesion within the tail the pancreas. No retroperitoneal lymphade nopathy. Normal caliber abdominal aorta. Multiple bilateral cortical and peripelvic renal cysts again noted. There are few punctate stones within the lower pole of the right kidney. A right ureteral rohan nt appears in good position. No change in the 6 mm stone within the distal right ureter best seen on image 326. Small amount of gas within the bladder is likely due to recent instrumentation. Mild uroth elial thickening within the right ureter is expected given the indwelling stent. No hydronephrosis. T he uterus and adnexa are unremarkable. Colonic diverticulosis. No evidence for acute diverticulitis. Fluid-filled colon. No bowel wall thickening or obstruction. Normal appendix measuring up to 6 mm in diameter. IMPRESSION: 1. No change in position of the 6 mm distal right ureteral stone. A right ureteral stent appears in g ood position and there is no evidence for right-sided hydronephrosis. 2. Colonic diverticulosis. No evidence for acute diverticulitis. 3. Increase in size in the small bilateral pleural effusions and mild diffuse body wall edema. 4. There is again noted a 2.6 cm hypodense lesion within the tail the pancreas. 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 Six-month fo llow-up recommended to ensure stability. 5. Right-sided nephrolithiasis. ACT 112: Negative or not required by law. Electronically signed by: Deniz Greer M.D. 08/30/2022 4:48 PM
--- NOTE | 2022-08-30 20:37 | Hospitalist Progress Note ---
Date of Service August 30, 2022 Assessment & Plan (1) Right nephrolithiasis: Plan: s/p right ureteral stent placement with Urology on 08/26/22 Cont flomax daily Cont oxybutinin prn Cont pyridium prn 08/25 urine cx and 08/28 urine cx both negative repeat CT abd/pelvis today to re-eval the urinary tract and her sigmoid diverticulitis no real acute findings thus - I suspect that her abdominal complaints today are related to her ureteral stent thus, cont the meds noted above f/u with Urology for stone and stent management as outpatient within 1-2 weeks after discharge (2) Acute diverticulitis: Plan: sigmoid as seen on admission CT RESOLVED - CT today without any abnormal colonic findings previously on cipro/flagyl now combo of rocephin/flagyl change to PO abx tomorrow allow low fiber diet (3) Hypokalemia: Plan: Low on admit, 2.7 replaced and now resolved (4) Hypothyroidism: Plan: Continue Synthroid 25mcg daily TSH normal here at 3.2 (5) Mild cognitive impairment: Plan: chronic per daughter no significant superimposed delirium (6) Anemia: Plan: Hemoglobin today 10.9 this is lower than prior recheck cbc in am for stability (7) Hypertension: Plan: BPs controlled Cont Verapamil 360mg po daily (8) Anxiety: Plan: cont buspar 5mg BID previously on lexapro per records but patient self-discontinued it check a B12 level in am Plan DVT proph - heparin 5000 BID have PT/OT re-eval to ensure safe for discharge tomorrow Admission and Anticipated Discharge Date Admission Date: August 28, 2022 Subjective no issues overnight except some pain in expected location of bladder she states "I feel lousy" when asked to clarify she says it is because of her stomach no nausea or emesis appetite fair at best remains with anxiety Review of Systems Review of Systems: cv - no chest pain pulm - no dyspnea; no cough GI - abdominal pain; no vomiting Physical Exam Physical Exam: gen - NAD, lying comfortably in bed, looks good today despite c/o feeling "lousy" mouth - MMM neck - no JVD heart - RRR, s1 s2, no murmur lungs - CTA b/l abd - soft NT ND BS+; no flank pain to palpation; no peritoneal signs ext - no edema, pulses 2+ b/l psych - mild confusion as previous exams Results & Data Results & Data ([facility]) Vital Signs (Past 12 Hours) Vital Signs Temp Pulse Resp BP Pulse Ox O2 Del Method 08/30/22 15:30 36.8 C 70 18 143/87 H 93 Room Air Laboratory Results Laboratory Results - last 24 hr 08/30/22 08/30/22 05:36 05:36 WBC 4.64 L RBC 3.50 L Hgb 10.9 L Hct 31.5 L MCV 90.0 MCH 31.1 MCHC 34.6 RDW Std Deviation 44.7 RDW Coeff of Yoselin 13.4 Plt Count 214 MPV 10.4 Immature Gran % (Auto) 0.4 Neut % (Auto) 63.4 Lymph % (Auto) 23.1 [place] % (Auto) 11.0 Eos % (Auto) 1.5 Baso % (Auto) 0.6 Neut # (Auto) 2.94 Lymph # (Auto) 1.07 L [place] # (Auto) 0.51 Eos # (Auto) 0.07 Baso # (Auto) 0.03 Immature Gran # (Auto) 0.02 Sodium 142 Potassium 3.7 Chloride 114 H Carbon Dioxide 26 Anion Gap 2 L BUN 9 Creatinine 0.68 Est Cr Clr Drug Dosing 58.9 Est GFR ( Amer) 96.4 Est GFR (Non-Af Amer) 83.2 BUN/Creatinine Ratio 13.2 Glucose 88 Calcium 8.1 L Diagnostic Findings IMPRESSION: 1. No change in position of the 6 mm distal right ureteral stone. A right ureteral stent appears in good position and there is no evidence for right-sided hydronephrosis. 2. Colonic diverticulosis. No evidence for acute diverticulitis. 3. Increase in size in the small bilateral pleural effusions and mild diffuse body wall edema. 4. There is again noted a 2.6 cm hypodense lesion within the tail the pancreas. 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 Six-month follow-up recommended to ensure stability. 5. Right-sided nephrolithiasis. ACT 112: Negative or not required by law. Electronically signed by: Deniz Greer M.D. 08/30/2022 4:48 PM PG Care Time/CCT Total # of Minutes Spent Total Time Spent with Patient: Total time spent is greater than 50% in coordination of care (as documented) at patient's floor/unit and/or counseling patient: Coding Level of Care Code 24019 SUB INP/OBS CARE 235MIN Diagnoses Right nephrolithiasis N20.0 Acute diverticulitis K57.92 Hypokalemia E87.6 Hypothyroidism E03.9 Mild cognitive impairment G31.84 Anemia D64.9 Hypertension I10 Anxiety F41.9
[2022-08-30] MEDS: RALOXIFENE HCL 60 MG TAB PO SCH (20:51)
[2022-08-30] MEDS ORDERED: MELATONIN 3 MG TAB PO SCH (21:00)
[2022-08-31] MEDS: metroNIDAZOLE 500 MG/100 ML BAG IV SCH (05:20)
[2022-08-31] MEDS: LEVOTHYROXINE SODIUM 25 MCG TABLET PO SCH (05:24)
[2022-08-31] MEDS: VERAPAMIL HCL 180 MG TABCR PO SCH (08:44)
[2022-08-31] MEDS: POTASSIUM CHLORIDE CRTAB 20 MEQ TABCR PO SCH (08:44)
[2022-08-31] MEDS: busPIRone 5 MG TAB PO SCH (08:44)
[2022-08-31] MEDS: TAMSULOSIN HCL 0.4 MG CAP PO SCH (08:45)
[2022-08-31] MEDS: HEPARIN SOD 5,000 UNIT/0.5 ML VIAL SQ SCH (08:45)
[2022-08-31] MEDS: POLYETHYLENE (MIRALAX) 17 GM PACK PO SCH (08:45)
[2022-08-31] MEDS: FAMOTIDINE 20 MG in SYRINGE 3 ML IV SCH (08:56)
[2022-08-31 09:20] LABS: Basophils # (auto) 0.04 K/uL (0-0.2); Basophils % (auto) 0.9 %; Eosinophils # (auto) 0.12 K/uL (0-0.50); Eosinophils % (auto) 2.8 %; Hematocrit (blood only) 35.1 % (34.1-44.9); Hemoglobin 11.9 g/dl (12.0-16.0); Immature Granulocytes # (auto) 0.01 K/uL (0.00-0.02); Immature Granulocytes % (auto) 0.2 %; Lymphocytes # (auto) 1.08 K/uL (1.2-3.4); Lymphocytes % (auto) 24.9 %; Mean Corpuscular Hemoglobin 30.7 pg (25.0-34.0); Mean Corpuscular Hgb Conc 33.9 g/dL (32.0-36.0); Mean Corpuscular Volume 90.5 fL (80.0-100.0); Mean Platelet Volume 10.3 fL (9.4-12.3); Monocytes # (auto) 0.42 K/uL (0.24-0.82); Monocytes % (auto) 9.7 %; Neutrophils # (auto) 2.66 K/uL (1.4-6.5); Neutrophils % (auto) 61.5 %; Platelet Count 221 K/uL (130-400); RDW Coefficient of Variation 13.6 % (11.5-14.5); RDW Standard Deviation 44.7 fL (36.4-46.3); Red Blood Count 3.88 M/uL (3.93-5.22); White Blood Count 4.33 K/ul (4.8-10.8)
[2022-08-31 09:46] LABS: BUN Creatinine Ratio 10.9 (10-20); Calcium 8.2 mg/dl (8.5-10.1); Creatinine Clr Calc Pharmacy 62.6 ml/min; Est GFR (African American) 98.4 ml/min; Est GFR (Non-African American) 84.9 ml/min; Magnesium 1.8 mg/dl (1.7-2.4); Potassium 3.5 mmol/L (3.5-5.1)
[2022-08-31] MEDS ORDERED: OXYBUTYNIN CHLORIDE 5 MG TAB PO STA (10:06)
[2022-08-31] MEDS ORDERED: PHENAZOPYRIDINE HCL 200 MG TAB PO STA (10:06)
[2022-08-31] MEDS ORDERED: CYANOCOBALAMIN (B-12) 500 MCG TABLET PO SCH (11:35)
[2022-08-31] MEDS ORDERED: CIPROFLOXACIN 500 MG TAB PO SCH (12:30)
--- NOTE | 2022-08-31 15:23 | Discharge Summary ---
Date of Service August 31, 2022 Admission HPI Per Admitting Provider Paola Mina is a 77yo female with history of HTN, HLP, GERD and Hypothyroidism presenting with acute uncomplicated diverticulitis and generalized weakness. Patient began having some abdominal pain 08/24/22 on the left side of her abdomen as well as discomfort in her back. Her pain persisted. Her son visited her this morning around 0500 and patient was complaining of ongoing back pain, left sided abdominal cramping and shaking. She denies fever, chills, nausea or vomiting. No chest pain, shortness of breath or falls. Her son visited again around 15:30 and noted that she did not want to get up from the couch. She was able to ambulate but required assistance. Patient lives at home with her elderly . Their son lives next door and assists with their care. In the ER patient is afebrile, HD stable and non-toxic in appearance. ER Course: Ciprofloxacin 400mg IV Potassium Chloride 40mEq PO Flagyl 500mg IV ordered - not yet administered Discharge Exam gen - NAD, lying comfortably in bed, looks good today mouth - MMM neck - no JVD heart - RRR, s1 s2, no murmur lungs - CTA b/l abd - soft NT ND BS+; no flank pain to palpation ext - no edema, pulses 2+ b/l psych - mild pleasant confusion; looks at daughter consistently for answers to questions Discharge Data Allergies Allergy/AdvReac Type Severity Reaction Status Date / Time amoxicillin Allergy Mild Hives Verified 08/25/22 20:54 Penicillins Allergy Mild Hives Verified 08/25/22 20:54 KATIANA Inhibitors Allergy Verified 08/25/22 20:54 mometasone furoate Allergy Verified 08/25/22 20:54 [From Nasonex] paroxetine [From Paxil] Allergy Verified 08/25/22 20:54 Consultations 08/25/22 21:59 ED Decision to Admit Stat 08/26/22 14:48 Consult Urology Routine Procedures Performed Operation Date: 08/26/22 16:00 Actual Procedures p Cystoscopy, Right Retrograde Pyelogram(Not Applicable) - Tony Ennis MD s Ureteral Stent Insertion Right, Right Ureteroscopy(Right) - Tony Ennis MD Ordered Studies 08/25/22 19:39 CT abd pelvis wo con Stat CT head/brain wo con Stat 08/26/22 FL retrograde includes kub Routine 08/26/22 13:44 US renal/blad retro comp Urgent 08/30/22 15:19 CT abd pelvis IV con only Routine Hospital Course (1) Right nephrolithiasis: s/p right ureteral stent placement with Urology on 08/26/22 Cont flomax daily Cont oxybutinin prn Repeat urine culture pending but thus far negative f/u with Urology for stone and stent management as outpatient within 1-2 weeks after discharge (2) Acute diverticulitis: sigmoid as seen on admission CT previously on cipro/flagyl now combo of rocephin/flagyl appetite, nausea, GI symptoms all improved moving bowels advance diet to full liquids today then low fiber tomorrow can stop IV fluids (3) Hypokalemia: Low on admit, 2.7 replaced last few days now resolved (4) Hypothyroidism: Continue Synthroid 25mcg daily TSH normal here at 3.2 (5) Mild cognitive impairment: chronic per daughter (6) Anemia: H/H stable again today with hb 11.8 (7) Hypertension: BPs controlled Cont Verapamil 360mg po daily (8) Anxiety: add buspar 5mg BID re-eval tomorrow for effectiveness previously on lexapro per records but patient self-discontinued it Plan DVT proph - heparin 5000 BID daughter extensively updated at bedside today needs repeat PT/OT evals - since last eval she has gotten a bit weaker due to be ing in bed significantly (other than ambulating to BR) dispo - Home with HH? SNF ? Home Health Attestation I certify that this patient is under my care and that I, or a physicians printing bindery assistant working with me, had a face to-face encounter that meets the home health [id number] encounter requirements with this patient. The encounter with the patient was in whole, or in part, for the following medical condition, which is the primary reason for home health care (list medical condition): I certify that, based on my findings, the following services are medically necessary home health services: My clinical findings support the need for the above services because: Further, I certify that my clinical findings support that this patient is homebound (i.e. absences from home require considerable and taxing effort and are for medical reasons or jewish services or infrequently or of short duration when for other reasons) because: Certification for Home Health Services: Based on the above findings, I certify that this patient is confined to the home and needs intermittent intermediate care, physical therapy and/or speech therapy or continues to need occupational therapy. The patient is under my care, and I have initiated the establishment of the plan of care. This patient will be followed by a physician who will periodically review the plan of care. Discharge Plan Discharge Items Patient Disposition: Home - Home Health Services Reason For Visit: DIVERTICULITIS, WEAKNESS Discharge Diagnosis: 1. 6mm right-sided kidney stone with stent placement by Dr Tony Ennis 2. very mild diverticulitis - resolved 3. weakness - due to #1 and #2 - improved 4. dementia 5. vitamin B12 deficiency 6. low potassium - resolved 7. anxiety Activity: Resume your previous activity Non-emergency contact: Primary Care Provider and Urologist Call non-emergency contact if: you have any medication questions, your symptoms worsen, your pain is not controlled, your pain is worsening and you have a fever Follow-up/Referrals: Erin Bruce MD [Primary Care Provider] - 09/07/22 1:00 pm (DR FREEMAN) Cody Chang PA [Physician Ball Worker] - 09/05/22 (to discuss kidney stone treatment) Diet: Low Fiber Addtl Attending Provider Instructions: Mrs Mina, Jaya were hospitalized due to back pain and abdominal pain. It was ultimately discovered that you had a 6mm right-sided kidney stone as well as a mild amount of diverticulitis. [facility] saw you and recommended placement of a stent in your right kidney ureter. This was performed by Dr Ennis. We treated the diverticulitis with antibiotics and IV fluids. Your back and abdominal pains have improved while here. You got stronger with time and PT/OT. We did notice that you are having occasional stent & bladder pain which are very common in the setting of having a ureteral stent. Of note - 2 urine cultures did not grow any bacteria; thus, no urinary tract infection was found. Recommendations - 1. For the mild diverticulitis - * low fiber diet for the next 3-4 days (see handout) * after that you can resume a normal diet * ciprofloxacin antibiotic - 500mg by mouth twice daily for 4 more days, first dose TONIGHT 08/31/22 * please purchase an [id number]-fbygfqv "probiotic" and take for about 1 week to prevent diarrhea from your antibiotics 2. For your kidney stone and kidney/ureteral stent - * for urinary pain/bladder pain you can take pyridium 100mg every 8 hours as needed; this medication will turn your urine and tears an orange color * for bladder pain & bladder spasm you can take oxybutinin 5mg every 12 hours as needed; common side effects - dry eyes, dry mouth, constipation * to reduce stent pain please take on a daily basis - Tamsulosin 0.4mg every morning; continue taking until your kidney stone and stent have been removed by urology * it is normal to see small amounts of blood on occasion with urination due to the presence of the stent; however, large amounts of blood should be cause for concern and you should contact the urologist if this occurs 3. For chronically low potassium please take - * potassium supplement 20meq once daily - start TOMORROW , 09/01/22 4. For anxiety you can take - * buspirone 5mg by mouth twice daily as needed 5. For low vitamin B12 take - * [id number]-[id number] Vitamin B12 1000mcg daily; take for at least 6 months, preferably up to 12 months * Dr Bruce can recheck your level down the line 6. Please speak with Dr rBuce about a medication called Mirtazapine which is an antidepressant, but helps with sleep and appetite as well. Follow-up - see separate section Return to [facility] if - * you see large amounts of blood in your urine * you have uncontrolled back pain, abdominal pain, or bladder pain * you have difficulty or inability to pass your urine * you develop severe diarrhea * you develop fever over 100 degrees * any other concerns It was our pleasure to care for you at [facility]! Continue to feel better, Dr Lopez Pending Studies at Discharge: No Stand-Alone Forms: My [facility] [employer], Smoking Cessation Medications and DC Order Prescriptions: New ciprofloxacin HCl 500 mg Tablet 500 mg PO BID 4 Days Qty: 8 0RF potassium chloride 20 mEq Tablet,Er Particles/Crystals 20 meq PO DAILY Qty: 30 0RF tamsulosin 0.4 mg Capsule 0.4 mg PO QAM Qty: 14 1RF oxybutynin chloride 5 mg Tablet 5 mg PO BID PRN (Reason: bladder pain/spasm) Qty: 20 0RF phenazopyridine [Pyridium] 100 mg tablet 100 mg PO Q8H PRN (Reason: urinary pain/bladder pain) Qty: 14 0RF Rx Instructions: this medication will discolor your urine and tears an orange color cyanocobalamin (vitamin B-12) 1,000 mcg capsule 1,000 mcg PO DAILY Qty: 90 3RF Rx Instructions: purchase usnk-jie-oqakeil buspirone 5 mg tablet 5 mg PO BID PRN (Reason: anxiety) Qty: 20 0RF Continued cholecalciferol (vitamin D3) [Vitamin D3] 25 mcg (1,000 unit) tablet,chewable 2,000 unit PO QAM levothyroxine 25 mcg tablet 25 mcg PO DAILYBB verapamil 180 mg capsule,ext rel. pellets 24 hr 360 mg PO DAILY Rx Instructions: TWO CAPSULE DOSE DAILY raloxifene 60 mg tablet 60 mg PO QPM Discharge Orders: Discharge Order (Routine); Ordered 08/31/22 Ordered By: Dieudonne Lott/Other Patient Handouts: Low-Fiber Diet, Understanding Kidney Stones Admission Data Admit Date/Time: 08/28/22 11:20 Attending Provider: Dieudonne Lopez Admit Provider: Stephanie Zayas Primary Care Provider: Erin Bruce Other Providers: Stephanie Zayas ; Tony Ennis ; [place] Coding Diagnoses Right nephrolithiasis N20.0 Acute diverticulitis K57.92 Hypokalemia E87.6 Hypothyroidism E03.9 Mild cognitive impairment G31.84 Anemia D64.9 Hypertension I10 Anxiety F41.9
== END 2022-08-31 17:01 | disposition home health service (06) | DRG 660 ==
LOC: ED 18:01 → 3W 18:01 → SUATTDRO 22:14 → 3W 08-26 01:19
DX: F41.9 Anxiety disorder, unspecified; M81.0 Age-related osteoporosis without current pathological fracture; Z88.1 Allergy status to other antibiotic agents; N39.0 Urinary tract infection, site not specified; I10 Essential (primary) hypertension; E03.9 Hypothyroidism, unspecified; K57.32 Diverticulitis of large intestine without perforation or abscess without bleeding; N13.2 Hydronephrosis with renal and ureteral calculous obstruction; G31.84 Mild cognitive impairment of uncertain or unknown etiology; Z88.0 Allergy status to penicillin; Z79.890 Hormone replacement therapy; E87.6 Hypokalemia

== ENCOUNTER 2024-02-20 15:45 | Observation (INO) ==
[2024-02-20 16:28] LABS: Basophils # (auto) 0.03 K/uL (0.00-0.20); Basophils % (auto) 0.4 %; Eosinophils # (auto) 0.02 K/uL (0.00-0.50); Eosinophils % (auto) 0.3 %; Hematocrit (blood only) 42.9 % (37.0-47.0); Hemoglobin 14.6 g/dl (12.0-16.0); Immature Granulocytes # (auto) 0.02 K/uL (0.01-0.20); Immature Granulocytes % (auto) 0.3 %; Lymphocytes # (auto) 0.75 K/uL (1.20-3.40); Lymphocytes % (auto) 10.3 %; Mean Corpuscular Hemoglobin 31.2 pg (25.0-34.0); Mean Corpuscular Volume 91.7 fL (80.0-100.0); Mean Platelet Volume 10.9 fL (9.4-12.4); Monocytes # (auto) 0.32 K/uL (0.11-0.59); Monocytes % (auto) 4.4 %; Neutrophils # (auto) 6.14 K/uL (1.40-6.50); Neutrophils % (auto) 84.3 %; Platelet Count 280 K/uL (130-400); RDW Coefficient of Variation 17.4 % (11.5-14.5); RDW Standard Deviation 58.8 fL (36.4-46.3); Red Blood Count 4.68 M/uL (4.20-5.40); White Blood Count 7.28 K/ul (4.8-10.8)
[2024-02-20 16:41] LABS: Alanine Aminotransferase 485 U/L (7-52); Albumin Level 3.6 gm/dl (3.4-5.0); Alkaline Phosphatase 455 U/L (34-104); Anion Gap 8 (3-11); Aspartate Aminotransferase 569 U/L (13-39); BUN Creatinine Ratio 23.6 (10-20); Bilirubin,Total 5.1 mg/dl (0.2-1.0); Blood Urea Nitrogen 17 mg/dl (6-23); Calcium 10.4 mg/dl (8.6-10.3); Carbon Dioxide 27 mmol/L (21-32); Chloride 108 mmol/L (98-107); Est GFR (Non-African American) 78.5 ml/min; Globulin 3.6 gm/dl (2.5-4.0); Glucose 132 mg/dl (70-99(Fasting)); Potassium 3.7 mmol/L (3.5-5.1); Sodium 143 mmol/L (136-145); Total Protein 7.2 gm/dl (6.0-8.3)
[2024-02-20] MEDS: SODIUM CHLORIDE 0.9% 1,000 ML IV ONE (16:54)
[2024-02-20 16:59] LABS: Magnesium 2.1 mg/dl (1.7-2.4); Phosphorus 2.6 mg/dl (2.5-4.9)
[2024-02-20 17:15] LABS: Thyroid Stimulating Hormone 1.817 uIu/ml (0.300-4.500)
--- NOTE | 2024-02-20 17:16 | XRay Report ---
XR chest 1V not portable HISTORY: 79 years-old Female not eating acute weight loss COMPARISON: 08/26/2022 TECHNIQUE: AP view of the chest FINDINGS: Cardiomediastinal and hilar silhouettes are within normal limits. No pneumothorax, pleural effusion o r airspace consolidation. Bones appear grossly intact. Sigmoidal thoracolumbar scoliosis. IMPRESSION: No acute process. ACT 112: Negative or not required by law. The above report was generated using voice recognition software. It may contain grammatical, syntax o r spelling errors. Electronically signed by: David Ley M.D. 02/20/2024 5:15 PM
--- NOTE | 2024-02-20 17:20 | Emergency Department Note ---
Impression & Plan Pancreatic mass, Dehydration, Transaminitis, Dementia ED Provider Note NAME: JOHN SAWYER AGE: 79 SEX: F : 1945 ARRIVES VIA: Walk-In INFORMANT: Patient ED PROVIDER(S): Tomas Whitaker MD CHIEF COMPLAINT: Decreased oral intake, dehydration, referred. PLAN: Disposition: Admit pending bed availability for [facility] transfer MEDICAL DECISION MAKING: The patient is a pleasant 79-year-old woman with a past medical history of dementia, GERD who presents to the emergency department via walk-in accompanied by her son with concern for poor oral intake over the past 1-2 weeks which became worse over the past several days where he has needed to push oral intake she is only drinking Ensure and a couple cups of water. He reports he has been in contact with her primary care doctor and they had a plan for next week but due to the worsening oral intake and weakness where she will not get up without significant assistance they referred emergency department. Denies any fevers, cough and congestion. On evaluation patient is fatigued appearing but no distress, afebrile with stable vital signs. She is pleasantly confused. Abdomen is nontender. WBC, H/H and platelets within normal limits. Chemistry without metabolic acidosis. BUNs/creatinine 23, consistent with patient's clinically dry appearance as is the patient's mildly elevated calcium of 10.4. LFTs demonstrate transaminitis with total bilirubin 5.1, direct bilirubin 3.4 and AST, ALT and alk phos 569, 45 and 455, respectively. Lipase is also mildly elevated at 201. TSH within normal limits. UA with possible infection with positive nitrites, leuk esterase and 1+ bacteria. CT Abdomen/pelvis was performed and demonstrated suspicion for pancreatic head mass where there is abrupt cut off of the pancreatic and CBD where CBD measures 1.5 cm and pancreatic duct up to 1 cm. Case was discussed with GI on-call, Dr. Hill. Appreciate consultation recommendations and agrees with plan for transfer to facility capable of ERCP. Case was discussed with [facility] transfer center and GI Dr. Mireles who agrees with transfer for ERCP. Case was reviewed with [facility] internal medicine hospitalist Dr. Soto who accepts the patient for transfer. Unfortunately, no beds are available tonight but will be available tomorrow. Thus, patient's son agrees with plan for mission to this facility until bed is available. Patient remained hemodynamically stable without acute complaints. No evidence of cholangitis at this time. Case was discussed with Dr. Robles, [facility] hospitalist, who will evaluate the patient for admission until bed availability is confirmed for transfer to [facility]. Further management per admitting team. Triage Nursing notes reviewed and agree them. Prior/external medical records reviewed Vital Signs: reviewed Differential diagnosis: Infection, dehydration, metabolic abnormality, hypo/hyperglycemia, electrolyte disturbance, anemia, hypoxia, cardiac sources, intracerebral event, toxicologic, neurologic, as well as other pathologies. ER treatment provided: See below. Diagnostics interpreted by me: Cardiac Monitoring: An order for continuous cardiac monitoring was placed and demonstrated normal sinus rhythm, 63 bpm, no ectopy. Laboratory studies: See below Imaging studies: See below Consultation(s): Dr. Hill, [facility], [place] ALONSO on-call Dr. Mireles, [facility], [facility] Dr. Soto, [facility] hospitalist. Dr. Robles, [facility] hospitalist. HPI: The patient is a pleasant 79-year-old woman with a past medical history of dementia, GERD who presents to the emergency department via walk-in accompanied by her son with concern for poor oral intake over the past 1-2 weeks which became worse over the past several days where he has needed to push oral intake she is only drinking Ensure and a couple cups of water. He reports he has been in contact with her primary care doctor and they had a plan for next week but due to the worsening oral intake and weakness where she will not get up without significant assistance they referred emergency department. Denies any fevers, cough and congestion. ROS: See above HPI for pertinent positives & negatives. A total of 10 systems reviewed and were otherwise negative. VITALS:See Below PHYSICAL EXAMINATION: GENERAL: Awake, alert, in no distress HENT: Normocephalic, atraumatic. Oropharynx with dry mucous membranes and otherwise unremarkable. EYES: Normal conjunctiva. Sclera non-icteric. NECK: Supple. No nuchal rigidity. FROM. No JVD. RESPIRATORY: Clear to auscultation. CARDIAC: Regular rate, normal rhythm. Extremities warm and well perfused. Pulses equal. ABDOMEN: Soft, non-distended. No tenderness to palpation. No rebound or guarding. No masses. MUSCULOSKELETAL: Chest examination reveals no tenderness. The back is symmetrical on inspection without obvious abnormality. There is no CVA tenderness to palpation. No joint edema. LOWER EXTREMITIES: Calves are equal size bilaterally and non-tender. No edema. No discoloration. NEURO: Pleasantly confused at baseline for dementia. No focal sensory or motor deficits noted. SKIN: No rash or jaundice noted. Tomas Whitaker MD Past Med/Surg History Problem List (Updated 02/20/24 @ 22:13 by Tomas Whitaker MD) Dementia (Acute) Transaminitis (Acute) Dehydration (Acute) Pancreatic mass (Acute) History of nephrolithiasis (Chronic) Vitamin B12 deficiency (Chronic) Pancreatic cyst (Chronic) IPMN - stable on last CT scan 02/2023 Hypertension (Chronic) History of diverticulitis (Chronic) Sensorineural hearing loss (SNHL) of both ears (Chronic) Mild cognitive impairment (Chronic) Hypothyroidism (Chronic) Chronic rhinitis (Chronic) Depression with anxiety (Chronic) Dyslipidemia (Chronic) GERD (gastroesophageal reflux disease) (Chronic) Osteoporosis (Chronic) Family history of breast cancer in first degree relative (Chronic) three sisters with breast cancer Surgical History S/P tubal ligation Hx of foot surgery S/P colonoscopy Hx of cholecystectomy Family History Father Alzheimer disease Sister Breast cancer Dementia Other Cancer Hypertension No family history of adverse response to anesthesia No family history of bleeding disorder Denies family history of Rheumatoid arthritis Sudden SIDS (sudden syndrome) Ovarian cancer Prostate cancer Diabetes Deep vein thrombosis Osteoporosis Coronary heart disease Dyslipidemia Cerebral aneurysm Bipolar disorder Clotting disorder Crohn's disease Depression Heart disease Kidney disease Myocardial infarction Osteoarthritis Schizophrenia Congenital kidney disease Gestational diabetes Lung cancer COPD (chronic obstructive pulmonary disease) Colorectal cancer Pulmonary embolism Lung disease Ulcerative colitis Colonic polyp Stroke Asthma Cystic kidney disease Social History Smoking Status: Never smoker Second Hand Exposure: No; Do You Dip or Chew Tobacco: No; Hx Alcohol Use: No Hx Substance Use: No Preferred Language: Hebrew Communication Ability: Effective Communication Ability Comment: Periods of confusion. Visual Impairment: No Limitations Hearing Ability: Hard of Hearing Delivery Man Required: No Beliefs That Will Affect Care: None marital status: Current Living Situation: Spouse current occupational status: retired How many Children do You have: 3 Feels Safe at Home: Yes Childhood Exposure to Second-Hand Smoke: No Diet: regular caffeine: No during the past year weight has: remained stable Dental Care, Regularly: Yes Physical Activity Frequency: Daily Seatbelt Use: always Sunscreen Use: No Assistive Devices: Denture - Upper, Denture - Lower, Glasses and Walker Allergies Allergies Allergy/AdvReac Type Severity Reaction Status Date / Time amoxicillin Allergy Mild Hives Verified 01/10/24 13:03 Penicillins Allergy Mild Hives Verified 01/10/24 13:03 KATIANA Inhibitors Allergy Unknown Verified 01/10/24 13:03 mometasone furoate Allergy Unknown Verified 01/10/24 13:03 [From Nasonex] paroxetine [From Paxil] AdvReac Unknown Verified 01/10/24 13:03 Home Meds Home Medications Medication Instructions Recorded Confirmed cholecalciferol (vitamin D3) 25 2,000 unit PO QAM 11/03/20 02/20/24 mcg (1,000 unit) chewable tablet (Vitamin D3) cyanocobalamin (vitamin B-12) 1,000 mcg PO QAM 09/07/22 02/20/24 1,000 mcg capsule Previous Rx's Medication Instructions Recorded levothyroxine 25 mcg tablet 25 mcg PO DAILY #90 tabs 07/22/23 verapamil 180 mg 24 hr 180 mg PO DAILY #90 caps 02/17/24 capsule,extended release mirtazapine 15 mg tablet 22.5 mg (1.5 x 15 mg) PO QPM #90 02/18/24 tabs Results & Data (ED) Vital Signs Vital Signs - 24 hr 02/20/24 15:53 02/20/24 16:53 02/20/24 17:27 Temperature 36.8 C Temperature Source Skin Pulse Rate 83 77 Pulse Rate [Left Apical] 72 Pulse Rhythm [Left Apical] Pulse Strength [Left Apical] Respiratory Rate 18 22 Respiratory Effort / Characteristics Non-Labored Spontaneous Respiratory Depth Normal Normal Respiratory Pattern Regular Blood Pressure 128/88 Blood Pressure [Right Arm] 132/86 Blood Pressure Mean 101 Blood Pressure Mean [Right Arm] 101 Blood Pressure Position [Right Arm] Pulse Oximetry 95 94 Oxygen Delivery Method Room Air Room Air Sepsis Recent Fever Within 48 Hours No Sepsis New/Unexplained Change in Mental Status No Sepsis Action Taken by Nursing No Action Required 02/20/24 17:27 02/20/24 17:30 02/20/24 18:06 Temperature Temperature Source Pulse Rate 72 62 Pulse Rate [Left Apical] Pulse Rhythm [Left Apical] Pulse Strength [Left Apical] Respiratory Rate 24 Respiratory Effort / Characteristics Respiratory Depth Respiratory Pattern Blood Pressure 152/92 H Blood Pressure [Right Arm] Blood Pressure Mean 133 Blood Pressure Mean [Right Arm] Blood Pressure Position [Right Arm] Pulse Oximetry 94 93 Oxygen Delivery Method Room Air Room Air Sepsis Recent Fever Within 48 Hours Sepsis New/Unexplained Change in Mental Status Sepsis Action Taken by Nursing 02/20/24 18:18 02/20/24 18:27 02/20/24 18:30 Temperature Temperature Source Pulse Rate 63 63 64 Pulse Rate [Left Apical] Pulse Rhythm [Left Apical] Pulse Strength [Left Apical] Respiratory Rate 27 H 29 H Respiratory Effort / Characteristics Respiratory Depth Respiratory Pattern Blood Pressure Blood Pressure [Right Arm] Blood Pressure Mean Blood Pressure Mean [Right Arm] Blood Pressure Position [Right Arm] Pulse Oximetry 93 93 93 Oxygen Delivery Method Room Air Room Air Room Air Sepsis Recent Fever Within 48 Hours Sepsis New/Unexplained Change in Mental Status Sepsis Action Taken by Nursing 02/20/24 18:30 02/20/24 18:42 02/20/24 19:00 Temperature Temperature Source Pulse Rate 67 Pulse Rate [Left Apical] 72 Pulse Rhythm [Left Apical] Regular Pulse Strength [Left Apical] Normal Respiratory Rate 24 20 Respiratory Effort / Characteristics Non-Labored Spontaneous Respiratory Depth Normal Respiratory Pattern Regular Blood Pressure 154/78 H Blood Pressure [Right Arm] 167/80 H Blood Pressure Mean 105 Blood Pressure Mean [Right Arm] 109 Blood Pressure Position [Right Arm] Lying Pulse Oximetry 94 94 Oxygen Delivery Method Room Air Room Air Sepsis Recent Fever Within 48 Hours Sepsis New/Unexplained Change in Mental Status Sepsis Action Taken by Nursing 02/20/24 21:00 02/20/24 22:15 Temperature Temperature Source Pulse Rate 63 Pulse Rate [Left Apical] 63 Pulse Rhythm [Left Apical] Regular Pulse Strength [Left Apical] Normal Respiratory Rate 24 Respiratory Effort / Characteristics Non-Labored Spontaneous Respiratory Depth Normal Respiratory Pattern Regular Blood Pressure Blood Pressure [Right Arm] 169/85 H Blood Pressure Mean Blood Pressure Mean [Right Arm] 113 Blood Pressure Position [Right Arm] Lying Pulse Oximetry 94 Oxygen Delivery Method Room Air Sepsis Recent Fever Within 48 Hours Sepsis New/Unexplained Change in Mental Status Sepsis Action Taken by Nursing Laboratory Data Attestation: I reviewed the patient's lab results. 02/20/24 16:10 02/20/24 16:10 Lab Results 02/20/24 02/20/24 02/20/24 Range/Units 16:10 17:16 17:33 WBC 7.28 (4.8-10.8) K/ul RBC 4.68 (4.20-5.40) M/uL Hgb 14.6 (12.0-16.0) g/dl Hct 42.9 (37.0-47.0) % MCV 91.7 (80.0-100.0) fL MCH 31.2 (25.0-34.0) pg MCHC 34.0 (32.0-36.0) g/dL RDW Std Deviation 58.8 H (36.4-46.3) fL RDW Coeff of Yoselin 17.4 H (11.5-14.5) % Plt Count 280 (130-400) K/uL MPV 10.9 (9.4-12.4) fL Immature Gran % (Auto) 0.3 % Neut % (Auto) 84.3 % Lymph % (Auto) 10.3 % [place] % (Auto) 4.4 % Eos % (Auto) 0.3 % Baso % (Auto) 0.4 % Neut # (Auto) 6.14 (1.40-6.50) K/uL Lymph # (Auto) 0.75 L (1.20-3.40) K/uL [place] # (Auto) 0.32 (0.11-0.59) K/uL Eos # (Auto) 0.02 (0.00-0.50) K/uL Baso # (Auto) 0.03 (0.00-0.20) K/uL Immature Gran # (Auto) 0.02 (0.01-0.20) K/uL PT Cancelled 13.2 H INR Cancelled 1.2 H APTT Cancelled 25 PTT Ratio Cancelled 0.9 Sodium 143 (136-145) mmol/L Potassium 3.7 (3.5-5.1) mmol/L Chloride 108 H (98-107) mmol/L Carbon Dioxide 27 (21-32) mmol/L Anion Gap 8 (3-11) BUN 17 (6-23) mg/dl Creatinine 0.72 (0.6-1.2) mg/dl Est Cr Clr Drug Dosing Not Reportable Est GFR ( Amer) 91.0 ml/min Est GFR (Non-Af Amer) 78.5 ml/min BUN/Creatinine Ratio 23.6 H (10-20) Glucose 132 H (70-99(Fasting)) mg/dl Calcium 10.4 H (8.6-10.3) mg/dl Phosphorus 2.6 (2.5-4.9) mg/dl Magnesium 2.1 (1.7-2.4) mg/dl Total Bilirubin 5.1 H (0.2-1.0) mg/dl Direct Bilirubin 3.4 H (0-0.2) mg/dl AST 569 H (13-39) U/L ALT 485 H (7-52) U/L Alkaline Phosphatase 455 H (34-104) U/L Total Protein 7.2 (6.0-8.3) gm/dl Albumin 3.6 (3.4-5.0) gm/dl Globulin 3.6 (2.5-4.0) gm/dl Albumin/Globulin Ratio 1.0 (0.9-2) Lipase 209 H (11-82) U/L TSH 1.817 (0.300-4.500) uIu/ml Urine Color Dark Yellow Urine Appearance Clear (Clear) Urine pH 5.5 (4.5-7.5) Ur Specific [place] 1.022 (1.000-1.030) Urine Protein Negative (Negative) Urine Glucose (UA) Negative (Negative) Urine Ketones Negative (Negative) Urine Blood Trace H (Negative) Urine Nitrite Positive A (Negative) Urine Bilirubin 2+ H (Negative) Urine Urobilinogen Positive H (Negative) Ur Leukocyte Esterase 1+ H (Negative) Urine WBC (Auto) 0-5 (0-5) /hpf Urine RBC (Auto) 0-2 (0-2) /hpf U Hyaline Cast (Auto) 0-2 (0-2) /lpf U Epithel Cells (Auto) 0-2 (0-2) /hpf Urine Bacteria (Auto) 1+ H (None Seen) Administered Medications Discontinued Medications Sodium Chloride (Nss) 1,000 mls @ 999 mls/hr IV .Q1H1M ONE Stop: 02/20/24 17:39 Last Infusion: 02/20/24 17:55 Dose: Infused Documented By: Admin: 02/20/24 16:54 Dose: 999 mls/hr Documented By: CHRIS Ioversol (Optiray 320 100ml) 94 ml IV ONCE ONE Stop: 02/20/24 19:14 Last Admin: 02/20/24 19:14 Dose: 94 ml Documented By: ISABEL Imaging Data Radiologist's Impression: Chest X-Ray 02/20/24 15:55 XR chest 1V not portable HISTORY: 79 years-old Female not eating acute weight loss COMPARISON: 08/26/2022 TECHNIQUE: AP view of the chest FINDINGS: Cardiomediastinal and hilar silhouettes are within normal limits. No pneumothorax, pleural effusion or airspace consolidation. Bones appear grossly intact. Sigmoidal thoracolumbar scoliosis. IMPRESSION: No acute process. ACT 112: Negative or not required by law. The above report was generated using voice recognition software. It may contain grammatical, syntax or spelling errors. Electronically signed by: David Ley M.D. 02/20/2024 5:15 PM Abdomen/Pelvis CT 02/20/24 18:44 Exam(s): CT ABDOMEN + PELVIS With Contrast IV Amt: 94ml optiray 320 EXAM: CT Abdomen and Pelvis With Intravenous Contrast CLINICAL HISTORY: Reason for exam: poor appetite, transaminitis, dementia. TECHNIQUE: Axial computed tomography images of the abdomen and pelvis with intravenous contrast. CTDI is 17.52 mGy and DLP is 916.23 mGy-cm. Automated exposure control was utilized for the study. A dose lowering technique was utilized adhering to the principles of ALARA. CONTRAST: Patient received 94ml optiray 320 of IV contrast COMPARISON: 03/01/2023 FINDINGS: Lung bases: Atelectasis at the lung bases. Tiny pleural effusions. ABDOMEN: Liver: Marked intrahepatic and extrahepatic biliary dilatation. CBD measures up to 1.5 cm. Abrupt beaking within the distal CBD at the level of the pancreas. No radiopaque stone. No focal lesion identified within the liver. Gallbladder and bile ducts: See above. Pancreas: Diffuse dilatation of the main pancreatic duct and side ducts up to 1 cm. Abrupt cutoff within the pancreatic head. Fat stranding inferior to the pancreatic neck either representing infiltrative malignancy or pancreatitis. Cystic lesion within the pancreatic body measuring 2.5 x 1.5 cm, previously 2.3 x 1.4 cm. Spleen: Unremarkable. Adrenals: Unremarkable. Kidneys and ureters: Cortical and parapelvic cysts within the kidneys. No hydronephrosis. Stomach and bowel: Colonic diverticulosis without diverticulitis. PELVIS: Appendix: No findings to suggest acute appendicitis. Bladder: Unremarkable. Reproductive: Unremarkable as visualized. ABDOMEN and PELVIS: Intraperitoneal space: Unremarkable. No free air. No significant fluid collection. Bones/joints: No acute fracture. Soft tissues: Unremarkable. Vasculature: Patent portal vein, SMV, and splenic vein. Lymph nodes: Unremarkable. IMPRESSION: 1. Marked biliary and pancreatic ductal dilatation with beaking of both ducts in the pancreatic head consistent with underlying malignancy. These findings are new from the prior. The margins of the tumor are occult on this study. Consider MRI/MRCP with and without contrast for further characterization. 2. Fat stranding inferior to the pancreatic neck either representing infiltrative malignancy or pancreatitis. 3. Cystic lesion within the pancreatic body slightly increased in size. Electronically signed by: Emmett Wolfe MD 02/20/24 20:[address] 02/20/24 18:44 Exam(s): CT HEAD Without Contrast EXAM: CT Head Without Intravenous Contrast CLINICAL HISTORY: Reason for exam: confusion. TECHNIQUE: Axial computed tomography images of the head/brain without intravenous contrast. CTDI is 36.55 mGy and DLP is 546.36 mGy-cm. Automated exposure control was utilized for the study. A dose lowering technique was utilized adhering to the principles of ALARA. COMPARISON: 08/25/2022 FINDINGS: Brain: Atrophy and chronic microvascular ischemic changes. No hemorrhage, cerebral edema, or mass-effect. Ventricles: Unremarkable. Bones/joints: Unremarkable. No fracture. Soft tissues: Unremarkable. Sinuses: No acute sinusitis. Mastoid air cells: Unremarkable as visualized. IMPRESSION: 1. No acute intracranial abnormality. Electronically signed by: Emmett Wolfe MD 02/20/24 20:18 PM Discharge Plan Visit Data Chief Complaint: Dehydration Stated Complaint: NOT EATING/DRINKING, POSSIBLE DEHYDRATION ED Provider: Tomas Whitaker Discharge Problem: Pancreatic mass, Dehydration, Transaminitis, Dementia Forms Stand Alone Forms: [facility] [employer] Prescriptions Prescriptions: No Action cholecalciferol (vitamin D3) [Vitamin D3] 25 mcg (1,000 unit) tablet,chewable 2,000 unit PO QAM levothyroxine 25 mcg tablet 25 mcg PO DAILY Qty: 90 3RF verapamil 180 mg capsule,ext rel. pellets 24 hr 180 mg PO DAILY Qty: 90 3RF mirtazapine 15 mg tablet 22.5 mg PO QPM Qty: 90 3RF cyanocobalamin (vitamin B-12) 1,000 mcg capsule 1,000 mcg PO QAM Rx Instructions: purchase [id number] Referrals Referrals: Erin Bruce MD [Primary Care Provider] - Discharge Problem: Dementia Qualifiers: Dementia type: unspecified type Dementia severity: unspecified severity D ementia behavioral or psychological symptom: without behavioral, psychotic, or mood disturbance or anxiety Qualified Code(s): F03.90 - Unspecified dementia, unspecified severity, without behavioral disturbance, psychotic disturbance, mood disturbance, and anxiety
[2024-02-20 18:02] LABS: INR 1.2 (0.9-1.1); Partial Thromboplastin Ratio 0.9; Partial Thromboplastin Time 25 Seconds (21-31); Prothrombin Time 13.2 Seconds (9.0-12.0)
[2024-02-20 18:40] LABS: Appearance Urine Clear (Clear); Bilirubin Urine 2+ (Negative); Blood Urine Trace (Negative); Cast Urine Automated 0-2 /lpf (0-2); Color Urine Dark Yellow; Epithelial Cell Urine Auto 0-2 /hpf (0-2); Glucose Urine UA Negative (Negative); Ketones Urine Negative (Negative); Leukocyte Esterase Urine 1+ (Negative); Nitrite Urine Positive (Negative); Protein Urine Negative (Negative); RBC Urine Automated 0-2 /hpf (0-2); Specific Gravity Urine 1.022 (1.000-1.030); Urobilinogen Urine Positive (Negative); WBC Urine Automated 0-5 /hpf (0-5); pH Urine 5.5 (4.5-7.5)
[2024-02-20 19:02] LABS: Bacteria Urine Automated 1+ (None Seen)
[2024-02-20] MEDS: OPTIRAY 320 100ml IV ONE (19:14)
--- NOTE | 2024-02-20 20:02 | CT Scan Report ---
Exam(s): CT ABDOMEN + PELVIS With Contrast IV Amt: 94ml optiray 320 EXAM: CT Abdomen and Pelvis With Intravenous Contrast CLINICAL HISTORY: Reason for exam: poor appetite, transaminitis, dementia. TECHNIQUE: Axial computed tomography images of the abdomen and pelvis with intravenous contrast. CTDI is 17.52 mGy and DLP is 916.23 mGy-cm. Automated exposure control was utilized for the study. A dose lowering technique was utilized adhering to the principles of ALARA. CONTRAST: Patient received 94ml optiray 320 of IV contrast COMPARISON: 03/01/2023 FINDINGS: Lung bases: Atelectasis at the lung bases. Tiny pleural effusions. ABDOMEN: Liver: Marked intrahepatic and extrahepatic biliary dilatation. CBD measures up to 1.5 cm. Abrupt beaking within the distal CBD at the level of the pancreas. No radiopaque stone. No focal lesion identified within the liver. Gallbladder and bile ducts: See above. Pancreas: Diffuse dilatation of the main pancreatic duct and side ducts up to 1 cm. Abrupt cutoff within the pancreatic head. Fat stranding inferior to the pancreatic neck either representing infiltrative malignancy or pancreatitis. Cystic lesion within the pancreatic body measuring 2.5 x 1.5 cm, previously 2.3 x 1.4 cm. Spleen: Unremarkable. Adrenals: Unremarkable. Kidneys and ureters: Cortical and parapelvic cysts within the kidneys. No hydronephrosis. Stomach and bowel: Colonic diverticulosis without diverticulitis. PELVIS: Appendix: No findings to suggest acute appendicitis. Bladder: Unremarkable. Reproductive: Unremarkable as visualized. ABDOMEN and PELVIS: Intraperitoneal space: Unremarkable. No free air. No significant fluid collection. Bones/joints: No acute fracture. Soft tissues: Unremarkable. Vasculature: Patent portal vein, SMV, and splenic vein. Lymph nodes: Unremarkable. IMPRESSION: 1. Marked biliary and pancreatic ductal dilatation with beaking of both ducts in the pancreatic head consistent with underlying malignancy. These findings are new from the prior. The margins of the tumor are occult on this study. Consider MRI/MRCP with and without contrast for further characterization. 2. Fat stranding inferior to the pancreatic neck either representing infiltrative malignancy or pancreatitis. 3. Cystic lesion within the pancreatic body slightly increased in size. Electronically signed by: Emmett Wolfe MD 02/20/24 20:01 PM
--- NOTE | 2024-02-20 20:19 | CT Scan Report ---
Exam(s): CT HEAD Without Contrast EXAM: CT Head Without Intravenous Contrast CLINICAL HISTORY: Reason for exam: confusion. TECHNIQUE: Axial computed tomography images of the head/brain without intravenous contrast. CTDI is 36.55 mGy and DLP is 546.36 mGy-cm. Automated exposure control was utilized for the study. A dose lowering technique was utilized adhering to the principles of ALARA. COMPARISON: 08/25/2022 FINDINGS: Brain: Atrophy and chronic microvascular ischemic changes. No hemorrhage, cerebral edema, or mass-effect. Ventricles: Unremarkable. Bones/joints: Unremarkable. No fracture. Soft tissues: Unremarkable. Sinuses: No acute sinusitis. Mastoid air cells: Unremarkable as visualized. IMPRESSION: 1. No acute intracranial abnormality. Electronically signed by: Emmett Wolfe MD 02/20/24 20:18 PM
[2024-02-20 20:51] LABS: Bilirubin Direct 3.4 mg/dl (0-0.2)
[2024-02-20 20:57] LABS: Lipase 209 U/L (11-82)
--- NOTE | 2024-02-20 22:31 | History & Physical Report ---
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 1) Pancreatic mass/Transaminitis/Elevated Alk Phos/Elevated TBili - patient w/ Hx of pancreatic cyst (IPMN) - CT-AP w/ IV contrast: shows marked biliary and pancreatic ductal dilation w/ beaking of both ducts in pancreatic head (see above in Diagnostics) - AST, 569; ALT, 485; AlkPhos, 455; TBili, 5.1; Direct Bili, 3.4 - Lipase, 209 2) Bile stasis - CT and laboratory evidence of bile stasis, risk factor for cholecystitis leading to sepsis - patient w/ noted allergy to amoxicillin, penicillins of hives - start Ciprofloxacin, 400 mg, IV, q12hrs and Flagyl, 500 mg, IV, q8hrs 3) Acute dehydration - BUN/Cr, 23.6 (BUN, 17; Cr, 0.72) - LR fluid bolus, 1000 mL 4) UTI - UA consistent w/ UTI: nitrite, positive; LE, 1+; Ur Bacteria, positive - antibiotics as above will also cover for likely UTI bacteria, Ur Cx pending 5) Hypothyroidism - continue levothyroxine, 25 ug, PO, daily 6) HTN - verapamil, 180 mg, PO, daily 7) insomnia/depression - mirtazapine, 22.5 mg, PO, QHS Code status: Full code (son unaware of pt's living will end-of-life directives) Disposition: Obs, Med-Tele DVT Prophylaxis: SCDs SHEILA: NPO until transfer to [facility] History of Present Illness Chief Complaint: decreased oral intake (patient with decreased appetite for 2 wks) Primary Care Provider: Erin Bruce MD Patient w/ an at least 2-week Hx of significantly decreased oral intake that is worsening. Today the patient had only 1 8-oz bottle of Ensure and very little H2O (less than 16 oz/day). Patient unable to give a good history but patient's son at bedside and able to give a collateral history. Allergies Allergy/AdvReac Type Severity Reaction Status Date / Time amoxicillin Allergy Mild Hives Verified 01/10/24 13:03 Penicillins Allergy Mild Hives Verified 01/10/24 13:03 KATIANA Inhibitors Allergy Unknown Verified 01/10/24 13:03 mometasone furoate Allergy Unknown Verified 01/10/24 13:03 [From Nasonex] paroxetine [From Paxil] AdvReac Unknown Verified 01/10/24 13:03 Home Medications Medication Instructions Recorded Confirmed Type cholecalciferol (vitamin D3) 25 2,000 unit PO QAM 11/03/20 02/20/24 History mcg (1,000 unit) chewable tablet (Vitamin D3) cyanocobalamin (vitamin B-12) 1,000 mcg PO QAM 09/07/22 02/20/24 History 1,000 mcg capsule levothyroxine 25 mcg tablet 25 mcg PO DAILY #90 tabs 07/22/23 02/20/24 Rx verapamil 180 mg 24 hr 180 mg PO DAILY #90 caps 02/17/24 02/20/24 Rx capsule,extended release mirtazapine 15 mg tablet 22.5 mg (1.5 x 15 mg) PO QPM #90 02/18/24 02/20/24 Rx tabs Past Med/Surg History Problem List (Updated 02/20/24 @ 22:13 by Tomas Whitaker MD) Dementia (Acute) Transaminitis (Acute) Dehydration (Acute) Pancreatic mass (Acute) History of nephrolithiasis (Chronic) Vitamin B12 deficiency (Chronic) Pancreatic cyst (Chronic) IPMN - stable on last CT scan 02/2023 Hypertension (Chronic) History of diverticulitis (Chronic) Sensorineural hearing loss (SNHL) of both ears (Chronic) Mild cognitive impairment (Chronic) Hypothyroidism (Chronic) Chronic rhinitis (Chronic) Depression with anxiety (Chronic) Dyslipidemia (Chronic) GERD (gastroesophageal reflux disease) (Chronic) Osteoporosis (Chronic) Family history of breast cancer in first degree relative (Chronic) three sisters with breast cancer Surgical History S/P tubal ligation Hx of foot surgery S/P colonoscopy Hx of cholecystectomy Family History Father Alzheimer disease Sister Breast cancer Dementia Other Cancer Hypertension No family history of adverse response to anesthesia No family history of bleeding disorder Denies family history of Rheumatoid arthritis Sudden SIDS (sudden syndrome) Ovarian cancer Prostate cancer Diabetes Deep vein thrombosis Osteoporosis Coronary heart disease Dyslipidemia Cerebral aneurysm Bipolar disorder Clotting disorder Crohn's disease Depression Heart disease Kidney disease Myocardial infarction Osteoarthritis Schizophrenia Congenital kidney disease Gestational diabetes Lung cancer COPD (chronic obstructive pulmonary disease) Colorectal cancer Pulmonary embolism Lung disease Ulcerative colitis Colonic polyp Stroke Asthma Cystic kidney disease Social History Smoking Status: Never smoker Second Hand Exposure: No; Do You Dip or Chew Tobacco: No; Hx Alcohol Use: No Hx Substance Use: No Preferred Language: Chinese Communication Ability: Effective Communication Ability Comment: Periods of confusion. Visual Impairment: No Limitations Hearing Ability: Hard of Hearing Veterinary Medical Officer Required: No Beliefs That Will Affect Care: None marital status: Current Living Situation: Spouse current occupational status: retired How many Children do You have: 3 Feels Safe at Home: Yes Safety Concerns: Feels Safe At This Time Childhood Exposure to Second-Hand Smoke: No Diet: regular caffeine: No during the past year weight has: remained stable Dental Care, Regularly: Yes Physical Activity Frequency: Daily Seatbelt Use: always Sunscreen Use: No Assistive Devices: Denture - Upper, Denture - Lower, Glasses and Walker Review of Systems Constitutional: + fatigue, + weakness and + anorexia; no fever and no chills Respiratory: + dyspnea on exertion; no cough, no ches t congestion and no dyspnea Cardiovascular: no chest pain and no palpitations Gastrointestinal: + early satiety and + constipation; no a bdominal pain, no nausea, no vomiting and no cramping Genitourinary: no dysuria and no urinary frequency Neurologic: no tingling, no numbness and no headache(s) Physical Exam Constitutional: WD/WN, vitals as above Respiratory: normal respiratory effort, lungs clear to auscultation Cardiovascular: RRR, no murmur, no edema Extremities: normal capillary refill (slight decreased cap refill of 3 s); no calf tenderness and no pedal edema Gastrointestinal (Abdomen): normal bowel sounds, soft, nontender, no hepato splenomegaly Psychiatric: Orientation: alert, oriented to person, oriented to place and cooperative; + not oriented to time Results & Data Results & Data Vital Signs (Past 12 Hours) Vital Signs Temp Pulse Pulse Resp BP BP Pulse Ox 02/20/24 22:15 63 02/20/24 21:00 63 24 169/85 H 94 02/20/24 19:00 72 20 167/80 H 94 02/20/24 18:42 67 24 94 02/20/24 18:30 154/78 H 02/20/24 18:30 64 29 H 93 02/20/24 18:27 63 27 H 93 02/20/24 18:18 63 93 02/20/24 18:06 62 93 02/20/24 17:30 152/92 H 02/20/24 17:27 72 24 94 02/20/24 17:27 77 02/20/24 16:53 72 22 132/86 94 02/20/24 15:53 36.8 C 83 18 128/88 95 O2 Del Method 02/20/24 22:15 02/20/24 21:00 Room Air 02/20/24 19:00 Room Air 02/20/24 18:42 Room Air 02/20/24 18:30 02/20/24 18:30 Room Air 02/20/24 18:27 Room Air 02/20/24 18:18 Room Air 02/20/24 18:06 Room Air 02/20/24 17:30 02/20/24 17:27 Room Air 02/20/24 17:27 02/20/24 16:53 Room Air 02/20/24 15:53 Room Air Supervising Physician Co-Signing Physician Notes Attending addendum: I have physically seen this patient, have supervised the medical residents activities, and agree with the H&P unless as otherwise noted. Assessment and Plan: Double duct sign/dilated CBD and pancreatic duct and pancreatic head/pancreatic malignancy- NPO, except ice chips and sips Patient will be admitted to [facility] until bed available at [facility] at [place] Emergency department physician has arranged for patient to be excepted by internal medicine Dr. Soto, with consult to gastroenterology Dr. Mireles Initial laboratories: AST 569, ALT 45, alk phos 455, total bilirubin 5.1 and direct bilirubin 3.4. Lipase 209. PT 13.2 INR, 1.2 and PTT 25 Cipro 400 mg IV every 12 hours Flagyl 500 mg IV every 8 hours History of anaphylaxis to penicillins Status post 1 L normal saline bolus from the ED Given additional bolus of 1 L LR Maintenance IV fluids: LR at 80 mL/h Zofran 4 mg IV every 6 hours as needed Pantoprazole 40 mg IV daily Morphine sulfate 2 mg IV every 3 hours as needed for moderate pain Morphine sulfate 4 mg IV every 3 hours as needed for severe pain
[2024-02-21] MEDS: LACTATED RINGER'S 1,000 ML IV ONE (00:22)
[2024-02-21] MEDS ORDERED: ONDANSETRON INJ 2 MG/ML 2 ML VIAL IV PRN (01:35)
[2024-02-21] MEDS ORDERED: MoRPHine SULFATE 2 MG/ML CARP IV PRN ×2 (01:35→06:15)
[2024-02-21] MEDS ORDERED: ACETAMINOPHEN 325 MG TAB PO PRN (01:35)
[2024-02-21] MEDS: LEVOTHYROXINE SODIUM 25 MCG TABLET PO SCH (06:00)
[2024-02-21] MEDS ORDERED: MoRPHine SULFATE 4 MG/ML 1 ML CARP\\VIAL IV PRN (06:15)
--- NOTE | 2024-02-21 06:19 | Billing Data ---
Date of Service February 21, 2024 Coding Level of Care Code 67625 INT INP/OBS CARE
[2024-02-21] MEDS: LACTATED RINGER'S 1,000 ML IV SCH (06:32)
[2024-02-21 08:59] LABS: Anion Gap 8 (3-11); Carbon Dioxide 23 mmol/L (21-32); Chloride 111 mmol/L (98-107); Magnesium 1.8 mg/dl (1.7-2.4); Potassium 3.5 mmol/L (3.5-5.1); Sodium 142 mmol/L (136-145)
[2024-02-21] MEDS ORDERED: CYANOCOBALAMIN (B-12) 500 MCG TABLET PO SCH (09:00)
[2024-02-21] MEDS ORDERED: VERAPAMIL HCL 180 MG TABCR PO SCH (09:00)
[2024-02-21 09:04] LABS: Basophils # (auto) 0.01 K/uL (0.00-0.20); Basophils % (auto) 0.1 %; Eosinophils # (auto) 0.03 K/uL (0.00-0.50); Eosinophils % (auto) 0.4 %; Hematocrit (blood only) 36.8 % (37.0-47.0); Hemoglobin 12.6 g/dl (12.0-16.0); Immature Granulocytes # (auto) 0.02 K/uL (0.01-0.20); Immature Granulocytes % (auto) 0.3 %; Lymphocytes # (auto) 0.78 K/uL (1.20-3.40); Lymphocytes % (auto) 10.5 %; Mean Corpuscular Hemoglobin 31.1 pg (25.0-34.0); Mean Corpuscular Hgb Conc 34.2 g/dL (32.0-36.0); Mean Corpuscular Volume 90.9 fL (80.0-100.0); Mean Platelet Volume 11.3 fL (9.4-12.4); Monocytes # (auto) 0.46 K/uL (0.11-0.59); Monocytes % (auto) 6.2 %; Neutrophils # (auto) 6.12 K/uL (1.40-6.50); Neutrophils % (auto) 82.5 %; Platelet Count 248 K/uL (130-400); RDW Coefficient of Variation 17.5 % (11.5-14.5); RDW Standard Deviation 58.4 fL (36.4-46.3); Red Blood Count 4.05 M/uL (4.20-5.40); White Blood Count 7.42 K/ul (4.8-10.8)
[2024-02-21 09:05] LABS: Alanine Aminotransferase 397 U/L (7-52); Albumin Globulin Ratio 1.1 (0.9-2); Alkaline Phosphatase 371 U/L (34-104); Aspartate Aminotransferase 470 U/L (13-39); BUN Creatinine Ratio 22.4 (10-20); Blood Urea Nitrogen 11 mg/dl (6-23); Est GFR (African American) 105.9 ml/min; Est GFR (Non-African American) 91.4 ml/min; Globulin 2.8 gm/dl (2.5-4.0); Glucose 109 mg/dl (70-99(Fasting)); Lipase 225 U/L (11-82); Total Protein 5.8 gm/dl (6.0-8.3)
--- NOTE | 2024-02-21 13:17 | Hospitalist Progress Note ---
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) Admitted on account of poor oral intake for the past several days 1) Pancreatic mass/Transaminitis/Elevated Alk Phos/Elevated TBili - patient w/ Hx of pancreatic cyst (IPMN) - CT-AP w/ IV contrast: shows marked biliary and pancreatic ductal dilation w/ beaking of both ducts in pancreatic head (see above in Diagnostics) - AST, 569; ALT, 485; AlkPhos, 455; TBili, 5.1; Direct Bili, 3.4 - Lipase, 209 -Has been accepted at [facility], pending bed availability 2) Bile stasis - CT and laboratory evidence of bile stasis, risk factor for cholecystitis leading to sepsis - patient w/ noted allergy to amoxicillin, penicillins of hives - start Ciprofloxacin, 400 mg, IV, q12hrs and Flagyl, 500 mg, IV, q8hrs 3) Acute dehydration - BUN/Cr, 23.6 (BUN, 17; Cr, 0.72) - LR fluid bolus, 1000 mL 4) UTI - UA consistent w/ UTI: nitrite, positive; LE, 1+; Ur Bacteria, positive - antibiotics as above will also cover for likely UTI bacteria, Ur Cx pending 5) Hypothyroidism - continue levothyroxine, 25 ug, PO, daily 6) HTN - verapamil, 180 mg, PO, daily 7) insomnia/depression - mirtazapine, 22.5 mg, PO, QHS Code status: Full code (son unaware of pt's living will end-of-life directives) Disposition: Obs, Med-Tele DVT Prophylaxis: Willie SOSA: NPO until transfer to [facility] Admission and Anticipated Discharge Date Admission Date: February 21, 2024 Subjective Patient seen and examined in the emergency department, awake alert but confused occasionally Review of Systems Review of Systems: Unreliable due to confusion Physical Exam Physical Exam: The patient is awake, alert confused HEENT--PERRL, EOMI, mucous membranes and oropharynx mildly dry Neck--supple. No JVD. No bruits. Thyroid normal, trachea midline, no adenopathy. Heart--normal S1 and S2. No murmurs, rubs or gallops. Lungs--clear bilaterally, no respiratory distress, no accessory muscle use. Abdomen--normal bowel sounds and soft. Extremities--no cyanosis or clubbing. No edema. Dermatologic--normal skin turgor, normal color, no abnormal lymph nodes, no rash. Neurologic--cranial nerves II through XII grossly intact. Rheumatologic--normal range of motion. Psychiatric--normal affect. Results & Data Results & Data Vital Signs (Past 12 Hours) Vital Signs Pulse Pulse Resp BP BP Pulse Ox Pulse Ox 02/21/24 10:31 51 L 16 160/78 H 96 02/21/24 08:02 73 18 120/71 98 02/21/24 07:05 49 L 02/21/24 07:03 53 L 20 156/80 H 97 02/21/24 06:09 57 L 23 96 02/21/24 06:00 59 L 20 159/83 H 96 02/21/24 05:00 56 L 20 150/79 H 96 02/21/24 03:30 55 L 20 142/83 H 97 02/21/24 03:30 02/21/24 03:26 59 L 20 129/61 96 02/21/24 03:25 96 02/21/24 03:00 60 23 129/61 95 02/21/24 02:30 59 L 22 152/87 H 95 02/21/24 02:14 58 L 20 155/74 H 95 02/21/24 01:30 55 L 19 155/83 H 96 O2 Del Method O2 Del Method 02/21/24 10:31 Room Air 02/21/24 08:02 Room Air 02/21/24 07:05 02/21/24 07:03 Room Air 02/21/24 06:09 Room Air 02/21/24 06:00 Room Air 02/21/24 05:00 Room Air 02/21/24 03:30 Room Air 02/21/24 03:30 Room Air 02/21/24 03:26 Room Air 02/21/24 03:25 Room Air 02/21/24 03:00 02/21/24 02:30 02/21/24 02:14 Room Air 02/21/24 01:30 PG Care Time/CCT Total # of Minutes Spent Total Time Spent with Patient: Total time spent is greater than 50% in coordination of care (as documented) at patient's floor/unit and/or counseling patient: Coding Level of Care Code 16432 SUB INP/OBS CARE 2/35MIN Diagnoses Pancreatic mass K86.89 Transaminitis R74.01 Pancreatic cyst K86.2 Hypothyroidism E03.9 Hypertension I10 Dehydration E86.0 Time Spent (min) 35
[2024-02-21] MEDS: PANTOprazole 40 MG in SYRINGE 0 ML IV SCH (13:49)
--- NOTE | 2024-02-21 14:26 | Discharge Summary ---
Date of Service February 21, 2024 Admission HPI Per Admitting Provider Patient w/ an at least 2-week Hx of significantly decreased oral intake that is worsening. Today the patient had only 1 8-oz bottle of Ensure and very little H2O (less than 16 oz/day). Patient unable to give a good history but patient's son at bedside and able to give a collateral history. Principal Diagnosis biliary dilation, pancreatic mass Discharge Exam The patient is awake, alert confused HEENT--PERRL, EOMI, mucous membranes and oropharynx mildly dry Neck--supple. No JVD. No bruits. Thyroid normal, trachea midline, no adenopathy. Heart--normal S1 and S2. No murmurs, rubs or gallops. Lungs--clear bilaterally, no respiratory distress, no accessory muscle use. Abdomen--normal bowel sounds and soft. Extremities--no cyanosis or clubbing. No edema. Dermatologic--normal skin turgor, normal color, no abnormal lymph nodes, no rash. Neurologic--cranial nerves II through XII grossly intact. Rheumatologic--normal range of motion. Psychiatric--normal affect. Discharge Data Allergies Allergy/AdvReac Type Severity Reaction Status Date / Time amoxicillin Allergy Mild Hives Verified 01/10/24 13:03 Penicillins Allergy Mild Hives Verified 01/10/24 13:03 KATIANA Inhibitors Allergy Unknown Verified 01/10/24 13:03 mometasone furoate Allergy Unknown Verified 01/10/24 13:03 [From Nasonex] paroxetine [From Paxil] AdvReac Unknown Verified 01/10/24 13:03 Consultations 02/20/24 22:00 ED Decision to Admit Stat Ordered Studies 02/20/24 18:44 CT abd pelvis IV con only Stat CT head/brain wo con Stat Hospital Course (1) Pancreatic mass: (2) Transaminitis: (3) Pancreatic cyst: (4) Hypothyroidism: (5) Hypertension: (6) Dehydration: Plan Patient is a 79 yo F w/ a PMHx of dementia, hypothyroidism, depression/anxiety, HTN, HLD, Hx of diverticulitis, Hx of nephrolithiasis, osteoporosis, GERD, pancreatic cyst (IPMN, 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) Admitted on account of poor oral intake for the past several days 1) Pancreatic mass/Transaminitis/Elevated Alk Phos/Elevated TBili - patient w/ Hx of pancreatic cyst (IPMN) - CT-AP w/ IV contrast: shows marked biliary and pancreatic ductal dilation w/ beaking of both ducts in pancreatic head (see above in Diagnostics) - AST, 569; ALT, 485; AlkPhos, 455; TBili, 5.1; Direct Bili, 3.4 - Lipase, 209 -Has been accepted at [facility], 2) Bile stasis - CT and laboratory evidence of bile stasis, risk factor for cholecystitis leading to sepsis - patient w/ noted allergy to amoxicillin, penicillins of hives - start Ciprofloxacin, 400 mg, IV, q12hrs and Flagyl, 500 mg, IV, q8hrs 3) Acute dehydration - BUN/Cr, 23.6 (BUN, 17; Cr, 0.72) - LR fluid bolus, 1000 mL 4) UTI - UA consistent w/ UTI: nitrite, positive; LE, 1+; Ur Bacteria, positive - antibiotics as above will also cover for likely UTI bacteria, Ur Cx pending 5) Hypothyroidism - continue levothyroxine, 25 ug, PO, daily 6) HTN - verapamil, 180 mg, PO, daily 7) insomnia/depression - mirtazapine, 22.5 mg, PO, QHS Code status: Full code (son unaware of pt's living will end-of-life directives) Disposition: Obs, Med-Tele DVT Prophylaxis: SCDs FENGI: NPO until transfer to [facility] Total Time Total Time Spent Total Time Spent (In Minutes): 35 Discharge Plan Discharge Items Patient Disposition: Transfer Acute Care Hospital Reason For Visit: PANCREATIC MASS Discharge Diagnosis: pancreatic mass, biliary dilatation Activity: Resume your previous activity Non-emergency contact: Primary Care Provider Call non-emergency contact if: you have any medication questions Follow-up/Referrals: Erin Bruce MD [Primary Care Provider] - Diet: Regular Addtl Attending Provider Instructions: Please make appointment to follow-up your regular PCP Pending Studies at Discharge: No Stand-Alone Forms: My [facility] Skilled Items Patient informed of condition?: Yes DNR: No Discharge Level of Care: Other Communicable Disease: No Discharge Prognosis: Stable Lines: Peripheral IV Urinary Catheter: Yes Medications and DC Order Prescriptions: Continued cholecalciferol (vitamin D3) [Vitamin D3] 25 mcg (1,000 unit) tablet,chewable 2,000 unit PO QAM levothyroxine 25 mcg tablet 25 mcg PO DAILY Qty: 90 3RF verapamil 180 mg capsule,ext rel. pellets 24 hr 180 mg PO DAILY Qty: 90 3RF mirtazapine 15 mg tablet 22.5 mg PO QPM Qty: 90 3RF cyanocobalamin (vitamin B-12) 1,000 mcg capsule 1,000 mcg PO QAM Rx Instructions: purchase [id number] Discharge Orders: Discharge Order (Routine); Ordered 02/21/24 Ordered By: Chidi Marx Admission Data Admit Date/Time: 02/21/24 00:18 Attending Provider: Chidi Marx Admit Provider: José Mccrary Primary Care Provider: Erin Bruce Other Providers: Rico Robles Coding Level of Care Code 22793 INP/OBS DISCH >30 MIN Diagnoses Pancreatic mass K86.89 Transaminitis R74.01 Pancreatic cyst K86.2 Hypothyroidism E03.9 Hypertension I10 Dehydration E86.0 Time Spent (min) 35
[2024-02-21] MEDS ORDERED: MIRTAZAPINE TAB 15 MG TAB PO SCH (21:00)
== END 2024-02-21 15:01 | disposition short-term general hospital (02) ==
LOC: ED 15:45 → EDINP 15:45 → SUATTDRO 02-21 00:18 → EDINP 02-21 15:01